=== PATIENT | female | born 1970 | race Caucasian/White ===

== ENCOUNTER 2019-06-09 18:49 | Inpatient (IN) | payer MEDICAID, OTHER ==
[~2019-06-09] VITALS: Ht 162.6 cm; Wt 102.4 kg
[2019-06-28 13:43] VITALS: BP 139/89
== END 2019-06-28 16:59 | DRG 720 ==
LOC: ED 19:15 → EDIP 20:55 → 5SO 21:30 → 4WST 21:43 → CCU 06-13 08:46 → 4WST 06-25 13:33
PROVIDERS: ADMIT Internal Medicine; ATTEND Internal Medicine
PROC: 0T9B70Z Drainage of Bladder with Drainage Device, Via Natural or Artificial Opening (ICD-10-PCS; 2019-06-12)
PROC: 5A1955Z Respiratory Ventilation, Greater than 96 Consecutive Hours (ICD-10-PCS; 2019-06-13)
PROC: 0BH17EZ Insertion of Endotracheal Airway into Trachea, Via Natural or Artificial Opening (ICD-10-PCS; 2019-06-13)
PROC: 0D9670Z Drainage of Stomach with Drainage Device, Via Natural or Artificial Opening (ICD-10-PCS; 2019-06-16)
PROC: 02HV33Z Insertion of Infusion Device into Superior Vena Cava, Percutaneous Approach (ICD-10-PCS; principal; 2019-06-17)
PROC: B548ZZA Ultrasonography of Superior Vena Cava, Guidance (ICD-10-PCS; 2019-06-17)
DX: A41.9 Sepsis, unspecified organism (principal); J96.01 Acute respiratory failure with hypoxia; N17.0 Acute kidney failure with tubular necrosis; J69.0 Pneumonitis due to inhalation of food and vomit; Z99.11 Dependence on respirator [ventilator] status; G93.41 Metabolic encephalopathy; K85.20 Alcohol induced acute pancreatitis without necrosis or infection; E87.4 Mixed disorder of acid-base balance; J90 Pleural effusion, not elsewhere classified; K70.9 Alcoholic liver disease, unspecified; D69.59 Other secondary thrombocytopenia; E66.01 Morbid (severe) obesity due to excess calories; E83.39 Other disorders of phosphorus metabolism; E83.42 Hypomagnesemia; E87.0 Hyperosmolality and hypernatremia; D53.9 Nutritional anemia, unspecified; Z68.38 Body mass index [BMI] 38.0-38.9, adult; E83.51 Hypocalcemia; E83.52 Hypercalcemia; E86.0 Dehydration; E87.6 Hypokalemia; Z71.41 Alcohol abuse counseling and surveillance of alcoholic; J98.01 Acute bronchospasm; K56.7 Ileus, unspecified; E87.70 Fluid overload, unspecified; K76.0 Fatty (change of) liver, not elsewhere classified; F10.239 Alcohol dependence with withdrawal, unspecified; F43.21 Adjustment disorder with depressed mood; G47.00 Insomnia, unspecified; I10 Essential (primary) hypertension; I47.1 Supraventricular tachycardia; I82.612 Acute embolism and thrombosis of superficial veins of left upper extremity; Z79.4 Long term (current) use of insulin; Z79.899 Other long term (current) drug therapy
CPT/HCPCS: 36415; 36573; 36600; 71045; 71250; 74018; 74176; 76700; 76770; 80048; 80053; 80061; 80076; 80307; 81001; 82140; 82306; 82330; 82533; 82607; 82803; 82962; 83036; 83605; 83690; 83735; 83970; 84100; 84443; 84478; 84484; 84703; 85025; 85610; 87040; 87070; 87081; 87205; 87324; 93005; 93306; 93970; 94002; 94003; 94150; 94640; 94660; 94668; 96372; 96374; 96375; G0378; J0610; J0696; J1644; J1815; J2185; J2250; J2405; J2550; J3010; J3360; J3411; J3475; J3480; J7070; J7620; C1751; J0360; J1940; J2060; J2270; J3420; J3490; J7030; J7040; J7050

== ENCOUNTER 2019-07-13 00:59 | Inpatient (IN) | payer MEDICAID ==
[~2019-07-13] VITALS: Ht 160 cm; Wt 99.2 kg
[~2019-07-13 00:59] MED LIST: CALC200T24 PO; ESCI10TA PO; FAMO20TA7 PO; FURO-92 PO; HEPA50002 SQ; HYDR12.517 PO; INSU100I11 SQ-INSULIN; INSU100I13 SQ-INSULIN; MAGN400T7 PO; MEGE400O4 PO; METO50TA82 PO; MULT1TAB60 PO; POTA20TA6 PO; THIA100T67 PO
[2019-07-13] MEDS ORDERED: REGULAR INSULIN 62.5 UNITS in SODIUM CHLORIDE 0.9% 249.375 ML IV PRN ×2 (01:13→03:00)
[2019-07-13] MEDS ORDERED: NOREPINEPHRINE 4 MG in SODIUM CHLORIDE 0.9% 246 ML IV PRN ×2 (01:23→03:00)
[2019-07-13 01:25] LABS: MEAN CORPUSCULAR HGB CONC 31.4 g/dL (32.4-35.8); MEAN CORPUSCULAR VOLUME 101.8 fL (80-100); MEAN PLATELET VOLUME 10.1 fL (7.4-10.4); PLATELET COUNT 565 x10^3/uL (130-400); RED BLOOD COUNT 3.54 x10^6/uL (3.82-5.3); RED CELL DISTRIBUTION WIDTH 22.1 % (9.6-15.2)
[2019-07-13] MEDS ORDERED: CLON-275 PO (01:27)
[2019-07-13] MEDS ORDERED: LISI-170 PO (01:27)
[2019-07-13] MEDS ORDERED: SODIUM CHLORIDE 0.9% 1,000ML IVBOLUS ONE ×2 (01:30→03:00)
[2019-07-13 01:33] LABS: ALANINE AMINOTRANSFERASE 19 U/L (12-78); CALCIUM 9.8 mg/dL (8.5-10.1); CHLORIDE 91 mmol/L (98-107); CREATININE 2.56 mg/dL (0.55-1.02)
[2019-07-13 01:41] LABS: ALKALINE PHOSPHATASE 161 U/L (45-117); BILIRUBIN,TOTAL 0.7 mg/dL (0.2-1.0); TOTAL PROTEIN 7.8 g/dL (6.4-8.2)
[2019-07-13 01:43] LABS: BASOPHILS # (AUTO) 0.02 x10^3/uL (0-0.1); BASOPHILS % (AUTO) 0 % (0-1); EOSINOPHILS # (AUTO) 0.06 x10^3/uL (0-0.4); EOSINOPHILS % (AUTO) 0 % (1-7); LYMPHOCYTES # (AUTO) 0.64 x10^3/uL (1-3.4); LYMPHOCYTES % (AUTO) 2 % (22-44); MD SCAN; MONOCYTES # (AUTO) 0.84 x10^3/uL (0.2-0.8); MONOCYTES % (AUTO) 3 % (2-9); NEUTROPHILS # (AUTO) 26.15 x10^3/uL (1.8-6.8); NEUTROPHILS % (AUTO) 94 % (42-75)
--- NOTE | 2019-07-13 01:45 | NUR ---
PT IN HOSPITAL GOWN, PLACED ON 2L O2. SECOND IV STARTED BY EMS. ORDERED FLUIDS HANGING. PT ONLY AROUSABLE TO PAINFUL STIMULI AT THIS TIME. MED REC DONE ACCORDING TO [facility] AND [facility] RECORDS BROUGHT IN BY WILBER. ACCORDING TO [facility] THERE ARE MORE MEDS PT TAKES AT HOME, BOYFRIEND CAN NOT RECALL UNLISTED MEDS AT THIS TIME. LAB IN CURRENTLY TRYING TO DRAW BLOOD. PT REQUIRING MULTIPLE STICKS TO COLLECT AMBLE BLOOD FOR ORDERED TESTS. WILL CONTINUE TO MONITOR.
[2019-07-13 01:55] LABS: ACETONE, SERUM Large (80mg/dL) mg/dL (Negative)
[2019-07-13 01:56] LABS: ANION GAP 31 mmol/L (5-15)
[2019-07-13] MEDS ORDERED: PHARMACOKINETIC CONSULTATION MC ONE (02:00)
[2019-07-13] MEDS ORDERED: VANCOMYCIN PER PHARMACY MC PRN (02:00)
[2019-07-13] MEDS ORDERED: PIPERACILLIN/TAZO/PMX 3.375GM 50 ML IV ONE (02:00)
--- NOTE | 2019-07-13 02:21 | NUR ---
BLOOD CULTURES DRAWN BY LAB. ORDERED ABX STARTED.
[2019-07-13 02:23] LABS: FIO2 97.5 %
[2019-07-13 02:24] LABS: MICROSCOPIC NOT IND
[2019-07-13 02:30] LABS: PH, VENOUS 6.899 pH (7.320-7.420)
[2019-07-13] MEDS ORDERED: VANCOMYCIN 1,600 MG in SODIUM CHLORIDE 0.9% 250 ML IV ONE (02:30)
[2019-07-13 02:32] LABS: CULTURE INDICATED? NO
[2019-07-13 02:36] LABS: AMPHETAMINE SCREEN, URINE Negative (Negative); BARBITURATE SCREEN, URINE Negative (Negative); BENZODIAZEPINE SCREEN, URINE Positive (Negative); CANNABINOID SCREEN, URINE Negative (Negative); COCAINE SCREEN, URINE Negative (Negative); METHADONE SCREEN, URINE Negative (Negative); OPIATE SCREEN, URINE Negative (Negative)
[2019-07-13 02:39] LABS: FREE T4 (FREE THYROXINE) 1.16 ng/dL (0.76-1.46); TROPONIN I < 0.015 ng/mL (0.000-0.045)
[2019-07-13] MEDS ORDERED: ONDANSETRON 2MG/ML, 2ML IVPush PRN (03:00)
--- NOTE | 2019-07-13 03:07 | NUR ---
REPORT TO NOEL GRAVES
[2019-07-13] MEDS ORDERED: PIPERACILLIN/TAZO/PMX 3.375GM 50 ML ONE (03:08)
[2019-07-13] MEDS: SODIUM CHLORIDE 0.9% 1,000 ML IV SCH ×3 (03:14→15:37)
[2019-07-13 03:19] LABS: HEMOGLOBIN A1C 8.1 % (4.2-6.3)
[2019-07-13] MEDS ORDERED: SODIUM POLY SULFONATE UDC 15 GM/60 ML PO ONE (03:30)
[2019-07-13] MEDS ORDERED: SODIUM BICARB 8.4%, 50ML SYRINGE IVPush ONE (03:30)
[2019-07-13] MEDS ORDERED: SODIUM BICARBONATE 1 MEQ/ML, 50ML VIAL ONE (04:12)
[2019-07-13] MEDS ORDERED: CALCIUM GLUCONATE 9.2 MEQ in SODIUM CHLORIDE 0.9% 100 ML IV ONE (04:30)
[2019-07-13] MEDS ORDERED: PIPERACILLIN/TAZO/PMX 2.25GM 50 ML IV SCH (05:00)
[2019-07-13] MEDS: LINEZOLID PMX 600MG/300ML 300 ML IV SCH ×2 (05:40→17:51)
[2019-07-13 05:48] LABS: ANION GAP 25 mmol/L (5-15); CALCIUM 9.4 mg/dL (8.5-10.1); CHLORIDE 106 mmol/L (98-107)
[2019-07-13 05:49] LABS: CREATININE 2.26 mg/dL (0.55-1.02)
[2019-07-13 09:46] LABS: ANION GAP 16 mmol/L (5-15); CALCIUM 9.4 mg/dL (8.5-10.1); CHLORIDE 109 mmol/L (98-107); CREATININE 1.91 mg/dL (0.55-1.02)
[2019-07-13] MEDS ORDERED: D5%-0.45NACL+KCL 20MEQ 1,000 ML IV SCH (12:00)
[2019-07-13 13:30] LABS: CALCIUM 9.1 mg/dL (8.5-10.1); CHLORIDE 113 mmol/L (98-107)
[2019-07-13 13:32] LABS: ANION GAP 9 mmol/L (5-15)
[2019-07-13] MEDS: INSULIN GLARGINE 100 UNITS/ML, PEN SQ-INSULIN SCH ×2 (14:29→21:30)
[2019-07-13] MEDS: INSULIN LISPRO 100 UNITS/ML, PEN SQ-INSULIN SCH ×2 (16:42→21:29)
[2019-07-13] MEDS: PIPERACILLIN/TAZO/PMX 2.25GM 50 ML IV SCH ×2 (16:42→22:55)
[2019-07-13] MEDS ORDERED: INSULIN GLARGINE 100 UNITS/ML, PEN SQ-INSULIN SCH (21:00)
[2019-07-14] MEDS ORDERED: REGULAR INSULIN 62.5 UNITS in SODIUM CHLORIDE 0.9% 249.375 ML IV PRN (03:00)
[2019-07-14 04:37] LABS: ALANINE AMINOTRANSFERASE 10 U/L (12-78); ALBUMIN 2.3 g/dL (3.4-5.0); ANION GAP 14 mmol/L (5-15); CALCIUM 8.6 mg/dL (8.5-10.1); CHLORIDE 110 mmol/L (98-107)
[2019-07-14 04:40] LABS: ALKALINE PHOSPHATASE 115 U/L (45-117); BILIRUBIN,TOTAL 0.7 mg/dL (0.2-1.0); CREATININE 1.14 mg/dL (0.55-1.02); TOTAL PROTEIN 6.1 g/dL (6.4-8.2)
[2019-07-14 04:41] LABS: BASOPHILS % (AUTO) 0 % (0-1); EOSINOPHILS # (AUTO) 0.08 x10^3/uL (0-0.4); EOSINOPHILS % (AUTO) 1 % (1-7); LYMPHOCYTES # (AUTO) 0.86 x10^3/uL (1-3.4); LYMPHOCYTES % (AUTO) 10 % (22-44); MD NO; MEAN CORPUSCULAR HEMOGLOBIN 31.8 pg (27.0-34.8); MEAN CORPUSCULAR HGB CONC 32.2 g/dL (32.4-35.8); MEAN CORPUSCULAR VOLUME 98.9 fL (80-100); MEAN PLATELET VOLUME 8.9 fL (7.4-10.4); MONOCYTES # (AUTO) 0.63 x10^3/uL (0.2-0.8); MONOCYTES % (AUTO) 7 % (2-9); NEUTROPHILS % (AUTO) 82 % (42-75); PLATELET COUNT 301 x10^3/uL (130-400); RED BLOOD COUNT 3.27 x10^6/uL (3.82-5.3)
[2019-07-14] MEDS: PIPERACILLIN/TAZO/PMX 2.25GM 50 ML IV SCH ×2 (04:56→12:22)
[2019-07-14] MEDS: SODIUM CHLORIDE 0.9% 1,000 ML IV SCH (04:56)
[2019-07-14] MEDS: LINEZOLID PMX 600MG/300ML 300 ML IV SCH (04:56)
[2019-07-14] MEDS ORDERED: PHENOBARBITAL SODIUM IV ONE (08:00)
[2019-07-14] MEDS ORDERED: SODIUM CHLORIDE 0.9% IV ONE (08:00)
[2019-07-14] MEDS ORDERED: ACETAMINOPHEN 325 MG TABLET PO PRN (08:00)
[2019-07-14] MEDS: INSULIN LISPRO 100 UNITS/ML, PEN SQ-INSULIN SCH ×4 (09:05→21:13)
[2019-07-14] MEDS: POTASSIUM CHLORIDE 20 MEQ TAB.ER.PRT PO SCH ×2 (09:09→17:22)
[2019-07-14] MEDS: INSULIN GLARGINE 100 UNITS/ML, PEN SQ-INSULIN SCH ×2 (09:12→21:14)
[2019-07-14 13:48] VITALS: BP 152/88
[2019-07-14] MEDS: PIPERACILLIN/TAZO/PMX 3.375GM 50 ML IV SCH (17:23)
[2019-07-14 20:27] VITALS: BP 161/88
[2019-07-15] MEDS: PIPERACILLIN/TAZO/PMX 3.375GM 50 ML IV SCH ×4 (00:08→17:38)
[2019-07-15 00:54] VITALS: BP 164/103
[2019-07-15] MEDS ORDERED: hydrALAzine 20 MG/ML, 1ML IV ONE (01:00)
[2019-07-15] MEDS: INSULIN LISPRO 100 UNITS/ML, PEN SQ-INSULIN SCH ×4 (07:53→21:26)
[2019-07-15] MEDS: POTASSIUM CHLORIDE 20 MEQ TAB.ER.PRT PO SCH ×2 (09:34→16:38)
[2019-07-15] MEDS: AMLODIPINE 5 MG TABLET PO SCH ×2 (09:34→20:31)
[2019-07-15] MEDS: INSULIN GLARGINE 100 UNITS/ML, PEN SQ-INSULIN SCH ×2 (09:35→21:24)
[2019-07-15] MEDS ORDERED: ALBUTEROL/IPRATROPIUM 2.5MG/0.5MG, 3 ML NPPB PRN (12:00)
[2019-07-15] MEDS: CALCIUM CARBONATE 500 MG TAB.CHEW PO PRN ×2 (15:12→21:22)
[2019-07-15] MEDS: ENOXAPARIN 40 MG/0.4 ML SQ SCH (17:00)
[2019-07-15 19:25] VITALS: BP 144/90
[2019-07-16] MEDS: PIPERACILLIN/TAZO/PMX 3.375GM 50 ML IV SCH ×3 (00:09→11:52)
[2019-07-16 01:08] VITALS: BP 160/100
[2019-07-16 06:16] LABS: CHLORIDE 104 mmol/L (98-107)
[2019-07-16 06:17] LABS: MEAN CORPUSCULAR HEMOGLOBIN 31.9 pg (27.0-34.8); MEAN CORPUSCULAR HGB CONC 32.3 g/dL (32.4-35.8); MEAN PLATELET VOLUME 9.2 fL (7.4-10.4); PLATELET COUNT 300 x10^3/uL (130-400); RED BLOOD COUNT 3.49 x10^6/uL (3.82-5.3); RED CELL DISTRIBUTION WIDTH 22.2 % (9.6-15.2)
[2019-07-16 06:24] LABS: ALANINE AMINOTRANSFERASE 12 U/L (12-78); ALBUMIN 2.7 g/dL (3.4-5.0); ALKALINE PHOSPHATASE 120 U/L (45-117); BILIRUBIN,TOTAL 0.6 mg/dL (0.2-1.0); CALCIUM 9.3 mg/dL (8.5-10.1); CREATININE 0.67 mg/dL (0.55-1.02); TOTAL PROTEIN 6.9 g/dL (6.4-8.2)
[2019-07-16 06:26] LABS: ANION GAP 10 mmol/L (5-15)
[2019-07-16 06:39] LABS: BASOPHILS # (AUTO) 0.04 x10^3/uL (0-0.1); BASOPHILS % (AUTO) 1 % (0-1); EOSINOPHILS # (AUTO) 0.07 x10^3/uL (0-0.4); EOSINOPHILS % (AUTO) 1 % (1-7); LYMPHOCYTES # (AUTO) 1.29 x10^3/uL (1-3.4); LYMPHOCYTES % (AUTO) 21 % (22-44); MD SCAN; MONOCYTES # (AUTO) 0.54 x10^3/uL (0.2-0.8); MONOCYTES % (AUTO) 9 % (2-9); NEUTROPHILS # (AUTO) 4.15 x10^3/uL (1.8-6.8); NEUTROPHILS % (AUTO) 68 % (42-75)
[2019-07-16] MEDS ORDERED: MAGNESIUM SULFATE 3 GM in SODIUM CHLORIDE 0.9% 100 ML IV ONE (07:00)
[2019-07-16] MEDS: INSULIN LISPRO 100 UNITS/ML, PEN SQ-INSULIN SCH ×4 (07:00→21:00)
[2019-07-16 08:00] VITALS: BP 161/90
[2019-07-16] MEDS: AMLODIPINE 5 MG TABLET PO SCH ×2 (08:11→20:46)
[2019-07-16] MEDS: METOPROLOL TARTRATE 25 MG TABLET PO SCH ×2 (08:11→17:48)
[2019-07-16] MEDS: POTASSIUM CHLORIDE 20 MEQ TAB.ER.PRT PO SCH ×3 (09:53→20:46)
[2019-07-16] MEDS: INSULIN GLARGINE 100 UNITS/ML, PEN SQ-INSULIN SCH ×2 (09:54→21:00)
[2019-07-16 11:47] LABS: CULTURE INDICATED? NO; MICROSCOPIC AUTO
[2019-07-16] MEDS: CALCIUM CARBONATE 500 MG TAB.CHEW PO PRN (14:47)
[2019-07-16] MEDS: GUAIFENESIN ER 600 MG TABLET PO SCH ×2 (14:48→20:45)
[2019-07-16 19:17] VITALS: BP 165/95
[2019-07-16] MEDS: AMOXICILLIN/CLAV 875-125MG TABLET PO SCH (20:45)
[2019-07-16] MEDS: ENOXAPARIN 40 MG/0.4 ML SQ SCH (20:48)
[2019-07-16] MEDS ORDERED: INSULIN GLARGINE 100 UNITS/ML, PEN SQ-INSULIN ONE (22:00)
[2019-07-17 01:48] VITALS: BP 157/89
[2019-07-17 05:45] LABS: ANION GAP 8 mmol/L (5-15); CHLORIDE 107 mmol/L (98-107); CREATININE 0.48 mg/dL (0.55-1.02)
[2019-07-17] MEDS: METOPROLOL TARTRATE 25 MG TABLET PO SCH (06:08)
[2019-07-17] MEDS: INSULIN LISPRO 100 UNITS/ML, PEN SQ-INSULIN SCH ×2 (07:00→11:00)
[2019-07-17 07:45] VITALS: BP 135/92
[2019-07-17] MEDS: GUAIFENESIN ER 600 MG TABLET PO SCH (07:47)
[2019-07-17] MEDS: AMOXICILLIN/CLAV 875-125MG TABLET PO SCH (07:47)
[2019-07-17] MEDS: POTASSIUM CHLORIDE 20 MEQ TAB.ER.PRT PO SCH (07:47)
[2019-07-17] MEDS: AMLODIPINE 5 MG TABLET PO SCH (07:47)
[2019-07-17] MEDS: INSULIN GLARGINE 100 UNITS/ML, PEN SQ-INSULIN SCH (08:12)
[2019-07-17] MEDS ORDERED: INSU100I11 SQ-INSULIN (11:45)
[2019-07-17] MEDS ORDERED: AMOX1TAB12 PO (11:45)
[2019-07-17] MEDS ORDERED: METO25TA35 PO (11:45)
[2019-07-17] MEDS ORDERED: INSU100I13 SQ-INSULIN (11:45)
== END 2019-07-17 14:32 | disposition home or self-care (01) | DRG 871 ==
LOC: ED 01:05 → EDIP 02:17 → CCU 03:45 → 3N 07-14 11:35 → DCLOUNGE 07-17 14:19
PROVIDERS: ADMIT Family Medicine; ATTEND Family Medicine
PROC: 0T9B70Z Drainage of Bladder with Drainage Device, Via Natural or Artificial Opening (ICD-10-PCS; principal; 2019-07-13)
PROC: 06HM33Z Insertion of Infusion Device into Right Femoral Vein, Percutaneous Approach (ICD-10-PCS; 2019-07-13)
DX: A41.9 Sepsis, unspecified organism (principal); E11.11 Type 2 diabetes mellitus with ketoacidosis with coma; G93.41 Metabolic encephalopathy; J18.9 Pneumonia, unspecified organism; K85.90 Acute pancreatitis without necrosis or infection, unspecified; N17.0 Acute kidney failure with tubular necrosis; E87.1 Hypo-osmolality and hyponatremia; D53.9 Nutritional anemia, unspecified; D69.6 Thrombocytopenia, unspecified; E66.9 Obesity, unspecified; E83.42 Hypomagnesemia; E86.0 Dehydration; E87.5 Hyperkalemia; F43.21 Adjustment disorder with depressed mood; I10 Essential (primary) hypertension; K70.9 Alcoholic liver disease, unspecified; K76.0 Fatty (change of) liver, not elsewhere classified; Y95 Nosocomial condition; Z87.891 Personal history of nicotine dependence; Z79.4 Long term (current) use of insulin
CPT/HCPCS: 36415; 51702; 71045; 80048; 80053; 80307; 81001; 81003; 82010; 82140; 82803; 82962; 83036; 83605; 83690; 83735; 83880; 83930; 84100; 84439; 84484; 85025; 87040; 87081; 93005; 94640; 99291; G0378; J0610; J1650; J1815; J2020; J2543; J3370; J3475; J0360; J3480; J7030; J7050

== ENCOUNTER 2019-10-08 13:23 | Inpatient (IN) | payer MEDICAID ==
[~2019-10-08] VITALS: Ht 162.6 cm; Wt 79.8 kg
[~2019-10-08 13:23] MED LIST changes: +AMOX1TAB12 PO; +CLON-275 PO; +LISI-170 PO; -MAGN400T7 PO; +MAGN400T9 PO; +METO25TA35 PO
[2019-10-08 14:22] LABS: BASOPHILS # (AUTO) 0.04 x10^3/uL (0-0.1); BASOPHILS % (AUTO) 1 % (0-1); EOSINOPHILS # (AUTO) 0.06 x10^3/uL (0-0.4); EOSINOPHILS % (AUTO) 1 % (1-7); LYMPHOCYTES # (AUTO) 1.49 x10^3/uL (1-3.4); LYMPHOCYTES % (AUTO) 22 % (22-44); MD NO; MEAN CORPUSCULAR HEMOGLOBIN 27.4 pg (27.0-34.8); MEAN CORPUSCULAR VOLUME 83.1 fL (80-100); MEAN PLATELET VOLUME 8.6 fL (7.4-10.4); MONOCYTES # (AUTO) 0.43 x10^3/uL (0.2-0.8); MONOCYTES % (AUTO) 6 % (2-9); NEUTROPHILS # (AUTO) 4.85 x10^3/uL (1.8-6.8); NEUTROPHILS % (AUTO) 71 % (42-75); PLATELET COUNT 255 x10^3/uL (130-400); RED BLOOD COUNT 5.33 x10^6/uL (3.82-5.3); RED CELL DISTRIBUTION WIDTH 15.4 % (9.6-15.2)
[2019-10-08] MEDS ORDERED: SODIUM CHLORIDE FLUSH 10ML SYR IVF ONE (14:30)
[2019-10-08 14:34] LABS: ALBUMIN 3.8 g/dL (3.4-5.0); ANION GAP 11 mmol/L (5-15); CALCIUM 9.9 mg/dL (8.5-10.1); CHLORIDE 101 mmol/L (98-107)
--- NOTE | 2019-10-08 14:34 | NUR ---
TASK RN: PT PRESENTING TO ER FOR RLQ PAIN INTERMITTENTLY SINCE TUESDAY. DENIES N/V/D, LAST BM TODAY, STATES NORMAL. NO URINARY SYMPTOMS REPORTED. CONNECTED TO MONITORING, VSS. PT UP TO RESTROOM TO OBTAIN URINE SAMPLE. LABS DRAWN. FAMILY AT BEDSIDE. CALL LIGHT WITHIN REACH.
[2019-10-08 14:41] LABS: ALANINE AMINOTRANSFERASE 39 U/L (12-78); ALKALINE PHOSPHATASE 94 U/L (45-117); BILIRUBIN,TOTAL 0.3 mg/dL (0.2-1.0); CREATININE 0.75 mg/dL (0.55-1.02); TOTAL PROTEIN 7.7 g/dL (6.4-8.2)
--- NOTE | 2019-10-08 15:32 | NUR ---
task rn:piv est by this rn on right forearm 20g.
[2019-10-08 15:44] LABS: MICROSCOPIC INDICATED
[2019-10-08 15:57] LABS: CULTURE INDICATED? YES
[2019-10-08] MEDS ORDERED: OMNIPAQUE 350 MG/ML, 100ML BOTTLE ONE (16:24)
[2019-10-08] MEDS ORDERED: ONDANSETRON 2MG/ML, 2ML IVPush PRN (17:00)
[2019-10-08] MEDS ORDERED: SODIUM CHLORIDE FLUSH 10ML SYR IVF PRN (17:30)
[2019-10-08] MEDS ORDERED: CEFTRIAXONE PMX 2GM/50ML 50 ML IV SCH (18:00)
[2019-10-08] MEDS ORDERED: POTASSIUM CHLORIDE 40 MEQ in SODIUM CHLORIDE 0.9% 500 ML IV ONE (18:00)
[2019-10-08] MEDS: SODIUM CHLORIDE 0.9% 1,000 ML IV SCH (18:06)
--- NOTE | 2019-10-08 18:30 | NUR ---
Provided report to ELY Chavis. All questions answered. Pt ready to transfer to floor from ED. NADN. No needs expressed.
--- NOTE | 2019-10-08 18:56 | NUR ---
Pt transfred from ED to floor with all personal belongings. NADN. No needs expressed.
[2019-10-08 19:45] VITALS: BP 138/84
[2019-10-08] MEDS: INSULIN LISPRO 100 UNITS/ML, PEN SQ-INSULIN SCH (21:00)
[2019-10-08] MEDS: METRONIDAZOLE PMX 500MG/100ML 100 ML IV SCH (21:14)
[2019-10-08] MEDS: MORPHINE SULFATE 4 MG/ML, 1ML IVPush PRN (23:52)
[2019-10-09 01:10] VITALS: BP 145/73
[2019-10-09 05:05] LABS: BASOPHILS # (AUTO) 0.02 x10^3/uL (0-0.1); BASOPHILS % (AUTO) 0 % (0-1); EOSINOPHILS # (AUTO) 0.07 x10^3/uL (0-0.4); EOSINOPHILS % (AUTO) 1 % (1-7); LYMPHOCYTES # (AUTO) 1.43 x10^3/uL (1-3.4); LYMPHOCYTES % (AUTO) 26 % (22-44); MD NO; MEAN CORPUSCULAR HEMOGLOBIN 27.8 pg (27.0-34.8); MEAN CORPUSCULAR HGB CONC 33.7 g/dL (32.4-35.8); MEAN CORPUSCULAR VOLUME 82.4 fL (80-100); MEAN PLATELET VOLUME 8.3 fL (7.4-10.4); MONOCYTES % (AUTO) 9 % (2-9); NEUTROPHILS # (AUTO) 3.56 x10^3/uL (1.8-6.8); NEUTROPHILS % (AUTO) 64 % (42-75); PLATELET COUNT 220 x10^3/uL (130-400); RED BLOOD COUNT 4.64 x10^6/uL (3.82-5.3); RED CELL DISTRIBUTION WIDTH 15.4 % (9.6-15.2)
[2019-10-09] MEDS: METRONIDAZOLE PMX 500MG/100ML 100 ML IV SCH ×2 (05:05→13:23)
[2019-10-09] MEDS: MORPHINE SULFATE 4 MG/ML, 1ML IVPush PRN ×4 (05:05→23:20)
[2019-10-09 05:08] LABS: ALANINE AMINOTRANSFERASE 29 U/L (12-78); ALBUMIN 3.1 g/dL (3.4-5.0); ANION GAP 6 mmol/L (5-15); CALCIUM 8.7 mg/dL (8.5-10.1); CHLORIDE 110 mmol/L (98-107); CREATININE 0.61 mg/dL (0.55-1.02)
[2019-10-09 05:10] LABS: ALKALINE PHOSPHATASE 76 U/L (45-117); BILIRUBIN,TOTAL 0.4 mg/dL (0.2-1.0); TOTAL PROTEIN 6.7 g/dL (6.4-8.2)
[2019-10-09] MEDS: INSULIN LISPRO 100 UNITS/ML, PEN SQ-INSULIN SCH ×4 (07:00→21:00)
[2019-10-09 07:08] VITALS: BP 133/85
[2019-10-09] MEDS: PANTOPRAZOLE 40 MG IV IVPush SCH (07:48)
[2019-10-09] MEDS: SODIUM CHLORIDE 0.9% 1,000 ML IV SCH (09:55)
[2019-10-09 14:59] VITALS: BP 122/83
[2019-10-09] MEDS ORDERED: MAGNESIUM SULFATE PMX 4GM/100M 100 ML IVPB ONE (15:00)
[2019-10-09] MEDS: POTASSIUM CHLORIDE 10 MEQ in D5%-LACTATED RINGERS 1,000 ML IV SCH (16:21)
[2019-10-09 19:12] VITALS: BP 137/87
[2019-10-10 01:41] VITALS: BP 129/85
[2019-10-10] MEDS: MORPHINE SULFATE 4 MG/ML, 1ML IVPush PRN ×5 (04:55→23:42)
[2019-10-10 05:34] LABS: BASOPHILS # (AUTO) 0.02 x10^3/uL (0-0.1); BASOPHILS % (AUTO) 0 % (0-1); EOSINOPHILS % (AUTO) 2 % (1-7); LYMPHOCYTES # (AUTO) 1.19 x10^3/uL (1-3.4); LYMPHOCYTES % (AUTO) 26 % (22-44); MD NO; MEAN CORPUSCULAR HEMOGLOBIN 27.7 pg (27.0-34.8); MEAN CORPUSCULAR HGB CONC 33.3 g/dL (32.4-35.8); MEAN CORPUSCULAR VOLUME 83.1 fL (80-100); MEAN PLATELET VOLUME 8.4 fL (7.4-10.4); MONOCYTES # (AUTO) 0.42 x10^3/uL (0.2-0.8); MONOCYTES % (AUTO) 9 % (2-9); NEUTROPHILS # (AUTO) 2.89 x10^3/uL (1.8-6.8); NEUTROPHILS % (AUTO) 63 % (42-75); PLATELET COUNT 202 x10^3/uL (130-400); RED BLOOD COUNT 4.46 x10^6/uL (3.82-5.3); RED CELL DISTRIBUTION WIDTH 15.5 % (9.6-15.2)
[2019-10-10 05:37] LABS: ALBUMIN 3.1 g/dL (3.4-5.0); ANION GAP 6 mmol/L (5-15); CALCIUM 8.5 mg/dL (8.5-10.1); CHLORIDE 109 mmol/L (98-107)
[2019-10-10 06:05] VITALS: BP 137/86
[2019-10-10] MEDS: POTASSIUM CHLORIDE 10 MEQ in D5%-LACTATED RINGERS 1,000 ML IV SCH ×2 (06:25→18:31)
[2019-10-10] MEDS: PANTOPRAZOLE 40 MG IV IVPush SCH (07:28)
[2019-10-10 08:00] LABS: ALANINE AMINOTRANSFERASE 25 U/L (12-78)
[2019-10-10 08:02] LABS: ALKALINE PHOSPHATASE 74 U/L (45-117); BILIRUBIN,TOTAL 0.5 mg/dL (0.2-1.0); TOTAL PROTEIN 6.5 g/dL (6.4-8.2)
[2019-10-10] MEDS: INSULIN LISPRO 100 UNITS/ML, PEN SQ-INSULIN SCH ×4 (09:42→20:08)
[2019-10-10 14:00] VITALS: BP 134/89
[2019-10-10] MEDS ORDERED: GADOTERATE 10 MMOL/20 ML VIAL ONE (16:58)
[2019-10-10 19:29] VITALS: BP 169/98
[2019-10-11 01:05] VITALS: BP 148/90
[2019-10-11] MEDS: POTASSIUM CHLORIDE 10 MEQ in D5%-LACTATED RINGERS 1,000 ML IV SCH ×2 (04:14→14:03)
[2019-10-11] MEDS: MORPHINE SULFATE 4 MG/ML, 1ML IVPush PRN ×6 (04:17→23:00)
[2019-10-11 08:19] VITALS: BP 160/100
[2019-10-11] MEDS: PANTOPRAZOLE 40 MG IV IVPush SCH (08:29)
[2019-10-11] MEDS: hydrALAzine 20 MG/ML, 1ML IVPush PRN (08:34)
[2019-10-11] MEDS: INSULIN LISPRO 100 UNITS/ML, PEN SQ-INSULIN SCH ×4 (08:37→20:37)
[2019-10-11 10:11] LABS: BASOPHILS # (AUTO) 0.02 x10^3/uL (0-0.1); BASOPHILS % (AUTO) 0 % (0-1); EOSINOPHILS # (AUTO) 0.15 x10^3/uL (0-0.4); EOSINOPHILS % (AUTO) 3 % (1-7); LYMPHOCYTES % (AUTO) 26 % (22-44); MD NO; MEAN CORPUSCULAR HEMOGLOBIN 27.8 pg (27.0-34.8); MEAN CORPUSCULAR HGB CONC 33.1 g/dL (32.4-35.8); MEAN CORPUSCULAR VOLUME 84.1 fL (80-100); MEAN PLATELET VOLUME 8.6 fL (7.4-10.4); MONOCYTES # (AUTO) 0.48 x10^3/uL (0.2-0.8); MONOCYTES % (AUTO) 10 % (2-9); NEUTROPHILS # (AUTO) 3.03 x10^3/uL (1.8-6.8); NEUTROPHILS % (AUTO) 61 % (42-75); PLATELET COUNT 209 x10^3/uL (130-400); RED BLOOD COUNT 4.62 x10^6/uL (3.82-5.3); RED CELL DISTRIBUTION WIDTH 15.4 % (9.6-15.2)
[2019-10-11 10:20] LABS: ALBUMIN 3.1 g/dL (3.4-5.0); ANION GAP 7 mmol/L (5-15); CALCIUM 8.8 mg/dL (8.5-10.1); CHLORIDE 108 mmol/L (98-107)
[2019-10-11 10:25] LABS: ALANINE AMINOTRANSFERASE 22 U/L (12-78); ALKALINE PHOSPHATASE 76 U/L (45-117); BILIRUBIN,TOTAL 0.5 mg/dL (0.2-1.0); TOTAL PROTEIN 6.5 g/dL (6.4-8.2)
[2019-10-11 10:36] VITALS: BP 147/88
[2019-10-11 13:45] VITALS: BP 151/91
[2019-10-11] MEDS: LACTATED RINGERS 1,000 ML IV SCH (17:05)
[2019-10-11 19:09] VITALS: BP 151/95
[2019-10-12 01:12] VITALS: BP 153/96
[2019-10-12] MEDS: MORPHINE SULFATE 4 MG/ML, 1ML IVPush PRN ×6 (03:04→21:48)
[2019-10-12] MEDS: INSULIN LISPRO 100 UNITS/ML, PEN SQ-INSULIN SCH ×4 (07:00→21:48)
[2019-10-12] MEDS: LACTATED RINGERS 1,000 ML IV SCH ×2 (07:04→21:54)
[2019-10-12 08:25] VITALS: BP 142/79
[2019-10-12 09:24] LABS: ALBUMIN 2.9 g/dL (3.4-5.0); ANION GAP 9 mmol/L (5-15); CALCIUM 8.4 mg/dL (8.5-10.1); CHLORIDE 107 mmol/L (98-107)
[2019-10-12 09:27] LABS: ALANINE AMINOTRANSFERASE 22 U/L (12-78); ALKALINE PHOSPHATASE 70 U/L (45-117); BILIRUBIN,TOTAL 0.7 mg/dL (0.2-1.0); CREATININE 0.51 mg/dL (0.55-1.02)
[2019-10-12 10:00] LABS: BASOPHILS # (AUTO) 0.02 x10^3/uL (0-0.1); BASOPHILS % (AUTO) 0 % (0-1); EOSINOPHILS # (AUTO) 0.09 x10^3/uL (0-0.4); EOSINOPHILS % (AUTO) 2 % (1-7); LYMPHOCYTES # (AUTO) 1.62 x10^3/uL (1-3.4); LYMPHOCYTES % (AUTO) 29 % (22-44); MD NO; MEAN CORPUSCULAR HEMOGLOBIN 27.2 pg (27.0-34.8); MEAN CORPUSCULAR HGB CONC 32.9 g/dL (32.4-35.8); MEAN CORPUSCULAR VOLUME 82.7 fL (80-100); MEAN PLATELET VOLUME 8.2 fL (7.4-10.4); MONOCYTES # (AUTO) 0.55 x10^3/uL (0.2-0.8); MONOCYTES % (AUTO) 10 % (2-9); NEUTROPHILS # (AUTO) 3.25 x10^3/uL (1.8-6.8); NEUTROPHILS % (AUTO) 59 % (42-75); PLATELET COUNT 233 x10^3/uL (130-400); RED BLOOD COUNT 4.87 x10^6/uL (3.82-5.3); RED CELL DISTRIBUTION WIDTH 15.9 % (9.6-15.2)
[2019-10-12] MEDS: PANTOPRAZOLE 40 MG IV IVPush SCH (10:10)
[2019-10-12 13:52] VITALS: BP 107/70
[2019-10-12] MEDS ORDERED: MAGNESIUM SULFATE 3 GM in SODIUM CHLORIDE 0.9% 100 ML IV ONE (16:30)
[2019-10-12 19:50] VITALS: BP 110/72
[2019-10-12] MEDS: TEMAZEPAM 15 MG CAPSULE PO PRN (21:48)
[2019-10-13] MEDS: MORPHINE SULFATE 4 MG/ML, 1ML IVPush PRN ×5 (01:10→21:45)
[2019-10-13 02:15] VITALS: BP 137/81
[2019-10-13] MEDS: LACTATED RINGERS 1,000 ML IV SCH ×2 (07:00→16:59)
[2019-10-13 07:44] LABS: ALANINE AMINOTRANSFERASE 22 U/L (12-78); ALBUMIN 2.8 g/dL (3.4-5.0); ANION GAP 7 mmol/L (5-15); CALCIUM 8.3 mg/dL (8.5-10.1); CHLORIDE 108 mmol/L (98-107); CREATININE 0.47 mg/dL (0.55-1.02)
[2019-10-13 07:46] LABS: ALKALINE PHOSPHATASE 69 U/L (45-117); BILIRUBIN,TOTAL 0.6 mg/dL (0.2-1.0); TOTAL PROTEIN 5.7 g/dL (6.4-8.2)
[2019-10-13] MEDS: PANTOPRAZOLE 40 MG IV IVPush SCH (07:50)
[2019-10-13] MEDS: INSULIN LISPRO 100 UNITS/ML, PEN SQ-INSULIN SCH ×4 (07:52→21:47)
[2019-10-13 08:00] VITALS: BP 118/75
[2019-10-13] MEDS ORDERED: INSULIN GLARGINE 100 UNITS/ML, PEN SQ-INSULIN SCH ×2 (09:00→21:00)
[2019-10-13] MEDS ORDERED: POTASSIUM CHLORIDE 20 MEQ TAB.ER.PRT PO ONE (12:00)
[2019-10-13 14:00] VITALS: BP 161/98
[2019-10-13 20:35] VITALS: BP 163/91
[2019-10-13] MEDS: TEMAZEPAM 15 MG CAPSULE PO PRN (22:40)
[2019-10-14] MEDS: HYDROcodone/APAP 5/325 TABLET PO PRN ×3 (01:11→16:38)
[2019-10-14] MEDS: LACTATED RINGERS 1,000 ML IV SCH ×3 (02:37→22:00)
[2019-10-14 03:21] VITALS: BP 136/87
[2019-10-14] MEDS: MORPHINE SULFATE 4 MG/ML, 1ML IVPush PRN ×3 (06:27→21:08)
[2019-10-14] MEDS: INSULIN LISPRO 100 UNITS/ML, PEN SQ-INSULIN SCH ×4 (07:00→21:15)
[2019-10-14] MEDS: PANTOPRAZOLE 40 MG IV IVPush SCH (08:27)
[2019-10-14 08:30] VITALS: BP 137/84
[2019-10-14 13:00] VITALS: BP 135/72
[2019-10-14 19:24] VITALS: BP 160/99
[2019-10-14] MEDS: INSULIN GLARGINE 100 UNITS/ML, PEN SQ-INSULIN SCH (21:11)
[2019-10-14] MEDS: TEMAZEPAM 15 MG CAPSULE PO PRN (23:07)
[2019-10-15] MEDS: HYDROcodone/APAP 5/325 TABLET PO PRN ×3 (00:53→18:30)
[2019-10-15 01:14] VITALS: BP 175/100
[2019-10-15] MEDS: MORPHINE SULFATE 4 MG/ML, 1ML IVPush PRN ×2 (04:31→12:09)
[2019-10-15] MEDS: INSULIN LISPRO 100 UNITS/ML, PEN SQ-INSULIN SCH ×4 (07:00→20:57)
[2019-10-15] MEDS: PANTOPRAZOLE 40 MG IV IVPush SCH (07:45)
[2019-10-15] MEDS: LACTATED RINGERS 1,000 ML IV SCH ×2 (07:45→16:57)
[2019-10-15 08:20] VITALS: BP 146/92
[2019-10-15] MEDS ORDERED: SENNA/DOCUSATE TABLET PO ONE (11:30)
[2019-10-15 14:12] VITALS: BP 146/93
[2019-10-15 20:19] VITALS: BP 158/86
[2019-10-15] MEDS: TEMAZEPAM 15 MG CAPSULE PO PRN (22:03)
[2019-10-15] MEDS: INSULIN GLARGINE 100 UNITS/ML, PEN SQ-INSULIN SCH (22:04)
[2019-10-16] MEDS: HYDROcodone/APAP 5/325 TABLET PO PRN ×4 (00:06→20:23)
[2019-10-16] MEDS: LACTATED RINGERS 1,000 ML IV SCH ×3 (03:32→23:12)
[2019-10-16 04:43] VITALS: BP 148/82
[2019-10-16] MEDS: INSULIN LISPRO 100 UNITS/ML, PEN SQ-INSULIN SCH ×4 (07:00→21:37)
[2019-10-16] MEDS: PANTOPRAZOLE 40 MG IV IVPush SCH (08:19)
[2019-10-16 08:30] VITALS: BP 167/85
[2019-10-16] MEDS ORDERED: INSU100I13 SQ-INSULIN (12:47)
[2019-10-16 13:10] VITALS: BP 161/92
[2019-10-16 19:37] VITALS: BP 170/102
[2019-10-16] MEDS: hydrALAzine 20 MG/ML, 1ML IVPush PRN (21:17)
[2019-10-16] MEDS: INSULIN GLARGINE 100 UNITS/ML, PEN SQ-INSULIN SCH (21:38)
[2019-10-16] MEDS: TEMAZEPAM 15 MG CAPSULE PO PRN (22:35)
[2019-10-16] MEDS ORDERED: ENALAPRILAT 1.25 MG/ML, 2ML IV PRN (23:30)
[2019-10-17] MEDS: MORPHINE SULFATE 4 MG/ML, 1ML IVPush PRN (00:09)
[2019-10-17 01:17] VITALS: BP 162/98
[2019-10-17] MEDS: INSULIN LISPRO 100 UNITS/ML, PEN SQ-INSULIN SCH ×4 (07:00→21:00)
[2019-10-17] MEDS: PANTOPRAZOLE 40 MG IV IVPush SCH (07:34)
[2019-10-17] MEDS: LISINOPRIL 20 MG TABLET PO SCH (07:35)
[2019-10-17] MEDS: HYDROcodone/APAP 5/325 TABLET PO PRN ×3 (07:37→21:18)
[2019-10-17 08:11] VITALS: BP 167/105
[2019-10-17] MEDS: LACTATED RINGERS 1,000 ML IV SCH ×2 (09:16→21:04)
[2019-10-17] MEDS: CHLORTHALIDONE 25 MG TABLET PO SCH (12:27)
[2019-10-17 15:55] VITALS: BP 139/85
[2019-10-17] MEDS: PANCRELIPASE 24,000 CAPSULE.DR PO SCH (16:31)
[2019-10-17 19:51] VITALS: BP 163/97
[2019-10-17] MEDS: INSULIN GLARGINE 100 UNITS/ML, PEN SQ-INSULIN SCH (21:16)
[2019-10-17] MEDS: TEMAZEPAM 15 MG CAPSULE PO PRN (22:19)
[2019-10-18 01:08] VITALS: BP 168/103
[2019-10-18] MEDS: MORPHINE SULFATE 4 MG/ML, 1ML IVPush PRN (01:12)
[2019-10-18] MEDS: HYDROcodone/APAP 5/325 TABLET PO PRN ×2 (04:54→15:44)
[2019-10-18 08:00] VITALS: BP 154/90
[2019-10-18] MEDS: LISINOPRIL 20 MG TABLET PO SCH (08:27)
[2019-10-18] MEDS: PANTOPRAZOLE 40 MG IV IVPush SCH (08:27)
[2019-10-18] MEDS: PANCRELIPASE 24,000 CAPSULE.DR PO SCH ×3 (08:27→17:46)
[2019-10-18] MEDS: CHLORTHALIDONE 25 MG TABLET PO SCH (08:28)
[2019-10-18] MEDS: INSULIN LISPRO 100 UNITS/ML, PEN SQ-INSULIN SCH ×2 (08:55→11:00)
[2019-10-18 11:00] VITALS: BP 169/94
[2019-10-18] MEDS ORDERED: CHLO25TA PO (12:59)
[2019-10-18] MEDS ORDERED: LIPA1CAP61 PO (12:59)
[2019-10-18 14:00] VITALS: BP 157/93
[2019-10-18] MEDS: LACTATED RINGERS 1,000 ML IV SCH (14:00)
[2019-10-19] MEDS ORDERED: PANTOPROZOLE 40MG TABLET PO SCH (06:00)
== END 2019-10-18 18:02 | disposition home or self-care (01) | DRG 439 ==
LOC: ED 15:11 → SUATTDRO 16:56 → EDIP 17:01 → 3N 19:08
PROVIDERS: ADMIT Internal Medicine; ATTEND Hospitalist
DX: K85.21 Alcohol induced acute pancreatitis with uninfected necrosis (principal); K86.3 Pseudocyst of pancreas; N39.0 Urinary tract infection, site not specified; R18.8 Other ascites; I82.891 Chronic embolism and thrombosis of other specified veins; D18.03 Hemangioma of intra-abdominal structures; D25.9 Leiomyoma of uterus, unspecified; E87.6 Hypokalemia; F10.21 Alcohol dependence, in remission; Y90.9 Presence of alcohol in blood, level not specified; G89.29 Other chronic pain; I10 Essential (primary) hypertension; K70.9 Alcoholic liver disease, unspecified; K76.0 Fatty (change of) liver, not elsewhere classified; K86.0 Alcohol-induced chronic pancreatitis; Z79.4 Long term (current) use of insulin; Z79.899 Other long term (current) drug therapy; Z80.3 Family history of malignant neoplasm of breast; Z87.891 Personal history of nicotine dependence; K76.89 Other specified diseases of liver; I86.4 Gastric varices
CPT/HCPCS: 36415; 99285; J7121; 74177; 74181; 74183; 80053; 81001; 82962; 83036; 83690; 83735; 84100; 84703; 85025; 87086; 87147; G0378; J0696; J3475; J3480; Q9967; A9575; C9113; J0360; J1815; J2270; J7030; J7040; J7120

== ENCOUNTER → 2019-12-21 | Outpatient (CLI) | payer MEDICAID ==
[~2019-12-21] MED LIST changes: +CHLO25TA PO; +LIPA1CAP61 PO; +OMNIPAQUE 350 MG/ML, 100ML BOTTLE ONE
== END | disposition home or self-care (01) ==
LOC: CFH 07:27
PROVIDERS: ATTEND Surgery
DX: K86.3 Pseudocyst of pancreas (principal)
CPT/HCPCS: 74177; Q9967

== ENCOUNTER → 2020-01-03 | Outpatient (CLI) | payer MEDICAID ==
[~2020-01-03] MED LIST changes: +CALC200T3 PO; +FAMO-79 PO; +HYDR-826 PO; +INSU100I34 SC; +INSU100I42 SC; +MULT-658 PO; -OMNIPAQUE 350 MG/ML, 100ML BOTTLE ONE
== END | disposition home or self-care (01) ==
LOC: STAR 08:54
PROVIDERS: ATTEND Surgery
DX: Z01.818 Encounter for other preprocedural examination (principal); I51.7 Cardiomegaly
CPT/HCPCS: 93005

== ENCOUNTER 2020-01-08 11:51 | Inpatient (IN) | payer MEDICAID ==
[~2020-01-08] VITALS: Ht 162.6 cm; Wt 88.0 kg
[2020-01-08] MEDS ORDERED: LACTATED RINGERS 1,000 ML IV SCH (12:15)
[2020-01-08 12:22] VITALS: BP 123/86
[2020-01-08] MEDS ORDERED: LIDOCAINE-MPF 1%, 2ML INFIL ONE (12:30)
[2020-01-08 12:43] LABS: HCG UR SG 1.003 (1.003-1.030)
[2020-01-08] MEDS ORDERED: FENTANYL PF 250 MCG/5ML ONE (13:50)
[2020-01-08] MEDS ORDERED: MIDAZOLAM 1 MG/ML, 2ML ONE (13:50)
[2020-01-08] MEDS ORDERED: BUPIVACAINE/PF-EPI 0.5% 1:200K ONE (14:03)
[2020-01-08] MEDS ORDERED: SCOPOLAMINE 1MG PATCH TD ONE (14:09)
[2020-01-08] MEDS ORDERED: DEXAMETHASONE 4 MG/ML, 1ML ONE (16:43)
[2020-01-08] MEDS ORDERED: EPHEDRINE 50 MG/ML, 1ML ONE (16:43)
[2020-01-08] MEDS ORDERED: PROPOFOL 10 MG/ML, 20ML ONE (16:43)
[2020-01-08] MEDS ORDERED: NEOSTIGMINE 1 MG/ML, 10ML ONE (16:43)
[2020-01-08] MEDS ORDERED: SUCCINYLCHOLINE 20 MG/ML, 10ML ONE (16:43)
[2020-01-08] MEDS ORDERED: ROCURONIUM 10MG/ML,5ML ONE (16:43)
[2020-01-08] MEDS ORDERED: ONDANSETRON 2MG/ML, 2ML ONE (16:43)
[2020-01-08] MEDS ORDERED: GLYCOPYRROLATE 0.2MG/1ML, 5ML ONE (16:43)
[2020-01-08] MEDS: FENTANYL PF 100 MCG/2ML IV PRN ×2 (16:53→17:05)
[2020-01-08] MEDS ORDERED: FENTANYL PF 100 MCG/2ML ONE (16:54)
[2020-01-08] MEDS ORDERED: HYDROmorphone 2 MG/ML, 1ML ONE ×2 (16:54→17:40)
[2020-01-08] MEDS: HYDROmorphone 1 MG/ML, 1ML INJ IVPush PRN ×5 (16:58→17:43)
[2020-01-08] MEDS: INSULIN REGULAR 100 UNITS/ML, 3ML VIAL SQ-INSULIN SCH ×3 (17:00→21:50)
[2020-01-08] MEDS ORDERED: hydrALAzine 20 MG/ML, 1ML IV PRN ×2 (17:00→17:30)
[2020-01-08] MEDS ORDERED: METOPROLOL 1 MG/ML, 5ML ONE (17:19)
[2020-01-08] MEDS ORDERED: PROMETHAZINE 25 MG/ML, 1ML IV PRN (17:30)
[2020-01-08] MEDS ORDERED: METOPROLOL 1 MG/ML, 5ML IV PRN (17:30)
[2020-01-08] MEDS ORDERED: ALBUTEROL/IPRATROPIUM 2.5MG/0.5MG, 3 ML NPPB PRN (17:30)
[2020-01-08] MEDS ORDERED: MIDAZOLAM 1 MG/ML, 2ML IV PRN (17:30)
[2020-01-08] MEDS ORDERED: MEPERIDINE/PF 25MG/ML,1ML IVPush PRN (17:30)
[2020-01-08] MEDS ORDERED: OXYcodone 5 MG/5 ML ORAL.SOL UDC PO PRN (17:30)
[2020-01-08] MEDS: KETOROLAC 30 MG/1 ML IV PRN (20:45)
[2020-01-08] MEDS: POTASSIUM CHLORIDE 20 MEQ in D5%-0.45% NACL 1,000 ML IV SCH (22:00)
[2020-01-09] MEDS: CEFOTETAN PMX 1GM/50ML 50 ML IVPB SCH ×3 (02:30→16:00)
[2020-01-09 03:55] VITALS: BP 98/59
[2020-01-09 06:07] LABS: ALBUMIN 3.2 g/dL (3.4-5.0); ANION GAP 7 mmol/L (5-15); CALCIUM 7.8 mg/dL (8.5-10.1); CHLORIDE 99 mmol/L (98-107); CREATININE 1.04 mg/dL (0.55-1.02)
[2020-01-09 07:12] LABS: MEAN CORPUSCULAR HEMOGLOBIN 29.3 pg (27.0-34.8); MEAN CORPUSCULAR HGB CONC 33.4 g/dL (32.4-35.8); MEAN CORPUSCULAR VOLUME 87.9 fL (80-100); MEAN PLATELET VOLUME 8.2 fL (7.4-10.4); PLATELET COUNT 249 x10^3/uL (130-400); RED BLOOD COUNT 4.31 x10^6/uL (3.82-5.3); RED CELL DISTRIBUTION WIDTH 15.1 % (9.6-15.2)
[2020-01-09] MEDS: POTASSIUM CHLORIDE 20 MEQ in D5%-0.45% NACL 1,000 ML IV SCH ×2 (07:20→18:27)
[2020-01-09 07:21] VITALS: BP 100/63
[2020-01-09] MEDS: ENOXAPARIN 40 MG/0.4 ML SQ SCH (08:10)
[2020-01-09] MEDS: INSULIN REGULAR 100 UNITS/ML, 3ML VIAL SQ-INSULIN SCH ×4 (08:10→20:50)
[2020-01-09 08:16] LABS: MD YES
[2020-01-09 08:18] LABS: BAND#(MANUAL) 0.67 x10^3/uL; BANDS%(MANUAL) 6 % (0-7); LYMPH#(MANUAL) 0.78 x10^3/uL (1-3.4); LYMPHS% (MANUAL) 7 % (22-44); MONOS#(MANUAL) 0.33 x10^3/uL (0.3-2.7); MONOS% (MANUAL) 3 % (2-9); SEG#(MANUAL) 9.32 x10^3/uL (1.8-6.8); SEGS% (MANUAL) 84 % (42-75)
[2020-01-09 08:21] LABS: <PLATELET ESTIMATE> ADEQUATE; <PLT MORPHOLOGY> NORMAL PLT MORPH; <RBC MORPHOLOGY> NORMAL
[2020-01-09] MEDS: KETOROLAC 30 MG/1 ML IV PRN ×2 (13:40→20:45)
[2020-01-09 13:50] VITALS: BP 115/80
[2020-01-09 20:21] VITALS: BP 111/69
[2020-01-10] MEDS: LORazepam 2 MG/ML, 1ML IV PRN ×2 (01:00→02:27)
[2020-01-10] MEDS: POTASSIUM CHLORIDE 20 MEQ in D5%-0.45% NACL 1,000 ML IV SCH ×3 (02:05→20:43)
[2020-01-10 03:30] VITALS: BP 105/60
[2020-01-10 05:26] LABS: MEAN CORPUSCULAR HEMOGLOBIN 29.3 pg (27.0-34.8); MEAN CORPUSCULAR HGB CONC 33.7 g/dL (32.4-35.8); MEAN CORPUSCULAR VOLUME 86.8 fL (80-100); MEAN PLATELET VOLUME 8.7 fL (7.4-10.4); PLATELET COUNT 182 x10^3/uL (130-400); RED BLOOD COUNT 3.83 x10^6/uL (3.82-5.3); RED CELL DISTRIBUTION WIDTH 14.9 % (9.6-15.2)
[2020-01-10 05:27] LABS: ANION GAP 4 mmol/L (5-15); CALCIUM 7.8 mg/dL (8.5-10.1); CHLORIDE 102 mmol/L (98-107)
[2020-01-10 05:29] LABS: CREATININE 0.61 mg/dL (0.55-1.02)
[2020-01-10 05:50] LABS: BASOPHILS # (AUTO) 0.02 x10^3/uL (0-0.1); BASOPHILS % (AUTO) 0 % (0-1); EOSINOPHILS # (AUTO) 0.02 x10^3/uL (0-0.4); EOSINOPHILS % (AUTO) 0 % (1-7); LYMPHOCYTES # (AUTO) 1.81 x10^3/uL (1-3.4); LYMPHOCYTES % (AUTO) 31 % (22-44); MD SCAN; MONOCYTES # (AUTO) 0.48 x10^3/uL (0.2-0.8); MONOCYTES % (AUTO) 8 % (2-9); NEUTROPHILS # (AUTO) 3.56 x10^3/uL (1.8-6.8); NEUTROPHILS % (AUTO) 61 % (42-75)
[2020-01-10] MEDS: ENOXAPARIN 40 MG/0.4 ML SQ SCH (08:06)
[2020-01-10] MEDS: INSULIN REGULAR 100 UNITS/ML, 3ML VIAL SQ-INSULIN SCH ×4 (08:06→21:00)
[2020-01-10 08:10] VITALS: BP 123/74
[2020-01-10] MEDS: KETOROLAC 30 MG/1 ML IV PRN ×2 (11:36→20:43)
[2020-01-10 15:03] VITALS: BP 128/75
[2020-01-10 19:46] VITALS: BP 104/69
[2020-01-11] MEDS: LORazepam 2 MG/ML, 1ML IV PRN ×2 (00:14→22:54)
[2020-01-11] MEDS ORDERED: FAMOTIDINE 20 MG/2 ML ONE (00:32)
[2020-01-11] MEDS: FAMOTIDINE 20 MG/2 ML IVPush SCH ×3 (00:36→20:50)
[2020-01-11] MEDS: KETOROLAC 30 MG/1 ML IV PRN ×4 (03:18→22:54)
[2020-01-11 03:51] VITALS: BP 124/73
[2020-01-11] MEDS: POTASSIUM CHLORIDE 20 MEQ in D5%-0.45% NACL 1,000 ML IV SCH ×2 (05:46→13:35)
[2020-01-11 06:19] LABS: BASOPHILS # (AUTO) 0.02 x10^3/uL (0-0.1); BASOPHILS % (AUTO) 0 % (0-1); EOSINOPHILS # (AUTO) 0.04 x10^3/uL (0-0.4); EOSINOPHILS % (AUTO) 1 % (1-7); LYMPHOCYTES # (AUTO) 1.21 x10^3/uL (1-3.4); LYMPHOCYTES % (AUTO) 18 % (22-44); MD NO; MEAN CORPUSCULAR HEMOGLOBIN 29.3 pg (27.0-34.8); MEAN CORPUSCULAR HGB CONC 33.9 g/dL (32.4-35.8); MEAN CORPUSCULAR VOLUME 86.6 fL (80-100); MEAN PLATELET VOLUME 8.2 fL (7.4-10.4); MONOCYTES # (AUTO) 0.49 x10^3/uL (0.2-0.8); MONOCYTES % (AUTO) 7 % (2-9); NEUTROPHILS # (AUTO) 4.95 x10^3/uL (1.8-6.8); NEUTROPHILS % (AUTO) 74 % (42-75); PLATELET COUNT 166 x10^3/uL (130-400); RED BLOOD COUNT 3.87 x10^6/uL (3.82-5.3)
[2020-01-11 06:20] LABS: ANION GAP 5 mmol/L (5-15); CHLORIDE 102 mmol/L (98-107); CREATININE 0.63 mg/dL (0.55-1.02)
[2020-01-11] MEDS: INSULIN REGULAR 100 UNITS/ML, 3ML VIAL SQ-INSULIN SCH ×4 (07:00→20:50)
[2020-01-11 08:00] VITALS: BP 119/72
[2020-01-11] MEDS: ENOXAPARIN 40 MG/0.4 ML SQ SCH (09:00)
[2020-01-11 14:49] VITALS: BP 115/67
[2020-01-11] MEDS ORDERED: DEXTROSE 50%, 50ML VIAL IVPush ONE (17:00)
[2020-01-11] MEDS: DIPHENHYDRAMINE 50 MG/ML, 1ML IV PRN (17:21)
[2020-01-11 20:10] VITALS: BP 112/74
[2020-01-12] MEDS: POTASSIUM CHLORIDE 20 MEQ in D5%-0.45% NACL 1,000 ML IV SCH ×3 (01:13→21:17)
[2020-01-12 01:44] VITALS: BP 129/82
[2020-01-12] MEDS: KETOROLAC 30 MG/1 ML IV PRN ×3 (05:16→19:41)
[2020-01-12 05:39] LABS: ANION GAP 8 mmol/L (5-15); CALCIUM 8.3 mg/dL (8.5-10.1); CHLORIDE 101 mmol/L (98-107); CREATININE 0.63 mg/dL (0.55-1.02)
[2020-01-12 05:40] LABS: BASOPHILS # (AUTO) 0.02 x10^3/uL (0-0.1); BASOPHILS % (AUTO) 0 % (0-1); EOSINOPHILS % (AUTO) 1 % (1-7); LYMPHOCYTES # (AUTO) 0.89 x10^3/uL (1-3.4); LYMPHOCYTES % (AUTO) 11 % (22-44); MD NO; MEAN CORPUSCULAR HEMOGLOBIN 28.8 pg (27.0-34.8); MEAN CORPUSCULAR HGB CONC 33.3 g/dL (32.4-35.8); MEAN CORPUSCULAR VOLUME 86.5 fL (80-100); MEAN PLATELET VOLUME 8.7 fL (7.4-10.4); MONOCYTES # (AUTO) 0.65 x10^3/uL (0.2-0.8); MONOCYTES % (AUTO) 8 % (2-9); NEUTROPHILS # (AUTO) 6.86 x10^3/uL (1.8-6.8); NEUTROPHILS % (AUTO) 81 % (42-75); PLATELET COUNT 172 x10^3/uL (130-400); RED CELL DISTRIBUTION WIDTH 14.8 % (9.6-15.2)
[2020-01-12 08:00] VITALS: BP 136/84
[2020-01-12] MEDS: INSULIN REGULAR 100 UNITS/ML, 3ML VIAL SQ-INSULIN SCH ×4 (08:06→21:50)
[2020-01-12] MEDS: FAMOTIDINE 20 MG/2 ML IVPush SCH ×2 (08:06→21:15)
[2020-01-12] MEDS: ENOXAPARIN 40 MG/0.4 ML SQ SCH (08:29)
[2020-01-12 13:22] VITALS: BP 124/79
[2020-01-12 20:06] VITALS: BP 122/78
[2020-01-12] MEDS: LORazepam 2 MG/ML, 1ML IV PRN (21:16)
[2020-01-13 03:36] VITALS: BP 135/84
[2020-01-13] MEDS: POTASSIUM CHLORIDE 20 MEQ in D5%-0.45% NACL 1,000 ML IV SCH ×2 (06:27→16:00)
[2020-01-13 06:42] VITALS: BP 124/80
[2020-01-13] MEDS: ACETAMINOPHEN 500 MG TABLET PO PRN ×2 (08:17→20:26)
[2020-01-13] MEDS: INSULIN REGULAR 100 UNITS/ML, 3ML VIAL SQ-INSULIN SCH ×4 (08:17→21:54)
[2020-01-13] MEDS: FAMOTIDINE 20 MG/2 ML IVPush SCH ×2 (08:22→20:26)
[2020-01-13] MEDS: ENOXAPARIN 40 MG/0.4 ML SQ SCH (08:22)
[2020-01-13] MEDS: CIPROFLOXACIN 500 MG TABLET PO SCH ×2 (10:27→21:54)
[2020-01-13 12:04] LABS: MICROSCOPIC NOT IND
[2020-01-13 12:43] VITALS: BP 108/69
[2020-01-13] MEDS: OXYcodone IR 5MG TABLET PO PRN ×2 (16:27→20:27)
[2020-01-13 19:43] VITALS: BP 106/73
[2020-01-13] MEDS: LORazepam 2 MG/ML, 1ML IV PRN (21:53)
[2020-01-13] MEDS: HYDROmorphone 1 MG/ML, 1ML INJ IVPush PRN (21:53)
[2020-01-14] MEDS: POTASSIUM CHLORIDE 20 MEQ in D5%-0.45% NACL 1,000 ML IV SCH ×3 (00:05→16:15)
[2020-01-14] MEDS: OXYcodone IR 5MG TABLET PO PRN ×5 (00:27→22:04)
[2020-01-14 00:47] VITALS: BP 91/55
[2020-01-14 06:31] LABS: BASOPHILS # (AUTO) 0.02 x10^3/uL (0-0.1); BASOPHILS % (AUTO) 0 % (0-1); EOSINOPHILS # (AUTO) 0.09 x10^3/uL (0-0.4); EOSINOPHILS % (AUTO) 1 % (1-7); LYMPHOCYTES # (AUTO) 1.08 x10^3/uL (1-3.4); LYMPHOCYTES % (AUTO) 13 % (22-44); MD NO; MEAN CORPUSCULAR HEMOGLOBIN 29.3 pg (27.0-34.8); MEAN CORPUSCULAR HGB CONC 33.7 g/dL (32.4-35.8); MEAN CORPUSCULAR VOLUME 86.8 fL (80-100); MEAN PLATELET VOLUME 9.2 fL (7.4-10.4); MONOCYTES # (AUTO) 1.23 x10^3/uL (0.2-0.8); MONOCYTES % (AUTO) 15 % (2-9); NEUTROPHILS # (AUTO) 5.75 x10^3/uL (1.8-6.8); NEUTROPHILS % (AUTO) 70 % (42-75); PLATELET COUNT 158 x10^3/uL (130-400); RED BLOOD COUNT 3.76 x10^6/uL (3.82-5.3); RED CELL DISTRIBUTION WIDTH 14.7 % (9.6-15.2)
[2020-01-14 06:35] LABS: ALANINE AMINOTRANSFERASE 13 U/L (12-78); ALBUMIN 2.5 g/dL (3.4-5.0); ANION GAP 10 mmol/L (5-15); CALCIUM 8.8 mg/dL (8.5-10.1); CHLORIDE 102 mmol/L (98-107); CREATININE 0.64 mg/dL (0.55-1.02)
[2020-01-14 06:37] LABS: ALKALINE PHOSPHATASE 88 U/L (45-117); TOTAL PROTEIN 5.9 g/dL (6.4-8.2)
[2020-01-14 07:37] VITALS: BP 105/70
[2020-01-14] MEDS: INSULIN REGULAR 100 UNITS/ML, 3ML VIAL SQ-INSULIN SCH ×4 (07:59→22:16)
[2020-01-14] MEDS: ENOXAPARIN 40 MG/0.4 ML SQ SCH (09:00)
[2020-01-14] MEDS: FAMOTIDINE 20 MG/2 ML IVPush SCH ×2 (09:19→22:03)
[2020-01-14] MEDS: CIPROFLOXACIN 500 MG TABLET PO SCH ×2 (09:21→22:03)
[2020-01-14 13:28] VITALS: BP 96/60
[2020-01-14] MEDS: HYDROmorphone 1 MG/ML, 1ML INJ IVPush PRN (19:46)
[2020-01-14] MEDS ORDERED: OMNIPAQUE 350 MG/ML, 100ML BOTTLE ONE (19:46)
[2020-01-14 20:10] VITALS: BP 142/84
[2020-01-14] MEDS: LORazepam 2 MG/ML, 1ML IV PRN (22:03)
[2020-01-14] MEDS: ONDANSETRON 2MG/ML, 2ML IVPush PRN (22:03)
[2020-01-15 01:17] VITALS: BP 117/76
[2020-01-15] MEDS: OXYcodone IR 5MG TABLET PO PRN ×2 (01:58→19:45)
[2020-01-15] MEDS: POTASSIUM CHLORIDE 20 MEQ in D5%-0.45% NACL 1,000 ML IV SCH ×3 (01:58→19:26)
[2020-01-15] MEDS: ONDANSETRON 2MG/ML, 2ML IVPush PRN ×2 (06:00→12:37)
[2020-01-15 07:12] VITALS: BP 100/63
[2020-01-15] MEDS ORDERED: MAALOX/HYOSCYAMINE/LIDOCAINE 45 ML BTL PO PRN (09:00)
[2020-01-15] MEDS: ENOXAPARIN 40 MG/0.4 ML SQ SCH (09:00)
[2020-01-15] MEDS: INSULIN REGULAR 100 UNITS/ML, 3ML VIAL SQ-INSULIN SCH ×4 (09:39→21:24)
[2020-01-15] MEDS: FAMOTIDINE 20 MG/2 ML IVPush SCH ×2 (09:40→21:17)
[2020-01-15] MEDS: CIPROFLOXACIN 500 MG TABLET PO SCH (09:41)
[2020-01-15] MEDS ORDERED: PROMETHAZINE 25 MG/ML, 1ML IM PRN (11:00)
[2020-01-15] MEDS: CIPROFLOXACIN/PMX 400MG/200ML 200 ML IV SCH ×2 (12:20→22:49)
[2020-01-15] MEDS: CALCIUM CARBONATE 500 MG TAB.CHEW PO SCH ×3 (12:21→21:17)
[2020-01-15 13:12] VITALS: BP 105/67
[2020-01-15 19:39] VITALS: BP 117/75
[2020-01-15] MEDS: LORazepam 2 MG/ML, 1ML IV PRN (21:24)
[2020-01-16 00:32] VITALS: BP 103/63
[2020-01-16] MEDS: DIPHENHYDRAMINE 50 MG/ML, 1ML IV PRN (01:35)
[2020-01-16] MEDS: POTASSIUM CHLORIDE 20 MEQ in D5%-0.45% NACL 1,000 ML IV SCH ×3 (04:30→22:05)
[2020-01-16] MEDS: CALCIUM CARBONATE 500 MG TAB.CHEW PO SCH ×4 (06:09→20:53)
[2020-01-16 07:14] VITALS: BP 110/70
[2020-01-16] MEDS: FAMOTIDINE 20 MG/2 ML IVPush SCH ×2 (08:34→20:53)
[2020-01-16] MEDS: INSULIN REGULAR 100 UNITS/ML, 3ML VIAL SQ-INSULIN SCH ×4 (08:34→20:57)
[2020-01-16] MEDS: ENOXAPARIN 40 MG/0.4 ML SQ SCH (08:35)
[2020-01-16 11:46] LABS: ALBUMIN 2.2 g/dL (3.4-5.0); ANION GAP 9 mmol/L (5-15); CALCIUM 8.2 mg/dL (8.5-10.1); CHLORIDE 98 mmol/L (98-107)
[2020-01-16 11:49] LABS: ALANINE AMINOTRANSFERASE 11 U/L (12-78); ALKALINE PHOSPHATASE 94 U/L (45-117); BILIRUBIN,TOTAL 0.5 mg/dL (0.2-1.0); CREATININE 1.35 mg/dL (0.55-1.02); TOTAL PROTEIN 6.1 g/dL (6.4-8.2)
[2020-01-16 11:55] LABS: MEAN CORPUSCULAR HEMOGLOBIN 28.5 pg (27.0-34.8); MEAN CORPUSCULAR HGB CONC 32.6 g/dL (32.4-35.8); MEAN CORPUSCULAR VOLUME 87.5 fL (80-100); MEAN PLATELET VOLUME 8.8 fL (7.4-10.4); PLATELET COUNT 179 x10^3/uL (130-400); RED BLOOD COUNT 3.86 x10^6/uL (3.82-5.3); RED CELL DISTRIBUTION WIDTH 14.5 % (9.6-15.2)
[2020-01-16 12:21] LABS: MD YES
[2020-01-16 12:23] LABS: BANDS%(MANUAL) 29 % (0-7); LYMPH#(MANUAL) 1.36 x10^3/uL (1-3.4); LYMPHS% (MANUAL) 11 % (22-44); MONOS#(MANUAL) 1.49 x10^3/uL (0.3-2.7); MONOS% (MANUAL) 12 % (2-9); MYELOCYTES# (MANUAL) 0.12 x10^3/uL (0-0); MYELOCYTES% (MANUAL) 1 % (0-0); SEG#(MANUAL) 5.83 x10^3/uL (1.8-6.8); SEGS% (MANUAL) 47 % (42-75)
[2020-01-16 12:28] VITALS: BP 126/75
[2020-01-16 12:28] LABS: <PLATELET ESTIMATE> ADEQUATE; <PLT MORPHOLOGY> NORMAL PLT MORPH; <RBC MORPHOLOGY> NORMAL
[2020-01-16] MEDS: ACETAMINOPHEN 500 MG TABLET PO PRN (16:37)
[2020-01-16] MEDS: ONDANSETRON 2MG/ML, 2ML IVPush PRN (16:37)
[2020-01-16 19:13] VITALS: BP 117/74
[2020-01-17 01:50] VITALS: BP 131/84
[2020-01-17] MEDS: POTASSIUM CHLORIDE 20 MEQ in D5%-0.45% NACL 1,000 ML IV SCH ×3 (02:43→22:15)
[2020-01-17 05:13] LABS: ANION GAP 10 mmol/L (5-15); CALCIUM 8.6 mg/dL (8.5-10.1); CHLORIDE 99 mmol/L (98-107)
[2020-01-17 05:14] LABS: CREATININE 1.15 mg/dL (0.55-1.02); MEAN CORPUSCULAR HEMOGLOBIN 29.1 pg (27.0-34.8); MEAN CORPUSCULAR HGB CONC 33.5 g/dL (32.4-35.8); MEAN CORPUSCULAR VOLUME 86.7 fL (80-100); MEAN PLATELET VOLUME 8.7 fL (7.4-10.4); PLATELET COUNT 236 x10^3/uL (130-400); RED BLOOD COUNT 3.98 x10^6/uL (3.82-5.3); RED CELL DISTRIBUTION WIDTH 14.6 % (9.6-15.2)
[2020-01-17 05:51] LABS: MD YES
[2020-01-17 05:54] LABS: BANDS%(MANUAL) 27 % (0-7); LYMPH#(MANUAL) 0.82 x10^3/uL (1-3.4); LYMPHS% (MANUAL) 5 % (22-44); METAMYELOCYTES# (MANUAL) 0.16 x10^3/uL (0-0); METAMYELOCYTES% (MANUAL) 1 % (0-1); MONOS#(MANUAL) 1.14 x10^3/uL (0.3-2.7); MONOS% (MANUAL) 7 % (2-9); SEG#(MANUAL) 9.78 x10^3/uL (1.8-6.8); SEGS% (MANUAL) 60 % (42-75)
[2020-01-17 05:56] LABS: <PLATELET ESTIMATE> ADEQUATE; <PLT MORPHOLOGY> NORMAL PLT MORPH; PMNS WITH VACUOLES 1+; POLYCHROMASIA 1+; TOXIC GRAN 1+
[2020-01-17] MEDS: CALCIUM CARBONATE 500 MG TAB.CHEW PO SCH ×4 (06:27→21:02)
[2020-01-17 07:28] VITALS: BP 144/79
[2020-01-17] MEDS: INSULIN REGULAR 100 UNITS/ML, 3ML VIAL SQ-INSULIN SCH ×4 (07:59→21:11)
[2020-01-17] MEDS: FAMOTIDINE 20 MG/2 ML IVPush SCH ×2 (09:04→21:02)
[2020-01-17] MEDS: ENOXAPARIN 40 MG/0.4 ML SQ SCH (09:04)
[2020-01-17] MEDS: ACETAMINOPHEN 500 MG TABLET PO PRN ×2 (09:04→21:02)
[2020-01-17 12:41] VITALS: BP 144/88
[2020-01-17] MEDS: OXYcodone IR 5MG TABLET PO PRN ×2 (13:51→20:04)
[2020-01-17 20:28] VITALS: BP 124/74
[2020-01-18] MEDS: OXYcodone IR 5MG TABLET PO PRN ×4 (00:08→19:10)
[2020-01-18] MEDS: LORazepam 2 MG/ML, 1ML IV PRN ×2 (00:09→22:10)
[2020-01-18 01:00] VITALS: BP 104/62
[2020-01-18] MEDS: CALCIUM CARBONATE 500 MG TAB.CHEW PO SCH ×4 (05:22→20:56)
[2020-01-18 05:29] LABS: MEAN CORPUSCULAR HGB CONC 32.9 g/dL (32.4-35.8); MEAN CORPUSCULAR VOLUME 88.2 fL (80-100); MEAN PLATELET VOLUME 8.7 fL (7.4-10.4); PLATELET COUNT 252 x10^3/uL (130-400); RED BLOOD COUNT 3.74 x10^6/uL (3.82-5.3); RED CELL DISTRIBUTION WIDTH 14.7 % (9.6-15.2)
[2020-01-18 05:39] LABS: ANION GAP 7 mmol/L (5-15); CALCIUM 8.2 mg/dL (8.5-10.1); CHLORIDE 97 mmol/L (98-107)
[2020-01-18 05:41] LABS: CREATININE 1.23 mg/dL (0.55-1.02)
[2020-01-18 06:08] LABS: MD YES
[2020-01-18 06:10] LABS: EOS#(MANUAL) 0.37 x10^3/uL (0.0-0.4); EOS% (MANUAL) 2 % (1-7); METAMYELOCYTES# (MANUAL) 0.18 x10^3/uL (0-0); METAMYELOCYTES% (MANUAL) 1 % (0-1)
[2020-01-18 06:11] LABS: LYMPH#(MANUAL) 1.65 x10^3/uL (1-3.4); LYMPHS% (MANUAL) 9 % (22-44); MONOS% (MANUAL) 6 % (2-9)
[2020-01-18 06:13] LABS: BAND#(MANUAL) 5.67 x10^3/uL; BANDS%(MANUAL) 31 % (0-7)
[2020-01-18 06:14] LABS: POLYCHROMASIA 1+; SEG#(MANUAL) 9.33 x10^3/uL (1.8-6.8); SEGS% (MANUAL) 51 % (42-75)
[2020-01-18 06:15] LABS: <PLATELET ESTIMATE> ADEQUATE; <PLT MORPHOLOGY> NORMAL PLT MORPH
[2020-01-18] MEDS: POTASSIUM CHLORIDE 20 MEQ in D5%-0.45% NACL 1,000 ML IV SCH ×3 (06:20→22:30)
[2020-01-18 07:41] VITALS: BP 97/61
[2020-01-18] MEDS: ACETAMINOPHEN 500 MG TABLET PO PRN ×2 (08:06→19:10)
[2020-01-18] MEDS: FAMOTIDINE 20 MG/2 ML IVPush SCH ×2 (08:07→20:56)
[2020-01-18] MEDS: ENOXAPARIN 40 MG/0.4 ML SQ SCH (08:07)
[2020-01-18] MEDS: INSULIN REGULAR 100 UNITS/ML, 3ML VIAL SQ-INSULIN SCH ×4 (08:07→20:56)
[2020-01-18 13:20] VITALS: BP 91/55
[2020-01-18] MEDS: VALACYCLOVIR 500MG TABLET PO SCH ×2 (13:57→22:02)
[2020-01-18 19:22] VITALS: BP 94/60
[2020-01-19 01:46] VITALS: BP 95/61
[2020-01-19] MEDS ORDERED: DEXTROSE 50%, 50ML SYRINGE IVPush PRN (04:30)
[2020-01-19] MEDS ORDERED: GLUCAGON 1 MG IM PRN (04:30)
[2020-01-19] MEDS ORDERED: DEXTROSE 4 GM TAB.CHEW PO PRN (04:30)
[2020-01-19] MEDS: SODIUM CHLORIDE 0.9% 1,000 ML IV SCH ×3 (05:01→20:29)
[2020-01-19 05:43] LABS: MEAN CORPUSCULAR HEMOGLOBIN 28.6 pg (27.0-34.8); MEAN CORPUSCULAR HGB CONC 32.8 g/dL (32.4-35.8); MEAN CORPUSCULAR VOLUME 87.1 fL (80-100); PLATELET COUNT 268 x10^3/uL (130-400); RED BLOOD COUNT 3.71 x10^6/uL (3.82-5.3)
[2020-01-19 05:45] LABS: ALANINE AMINOTRANSFERASE 17 U/L (12-78); ALBUMIN 2.1 g/dL (3.4-5.0); ANION GAP 9 mmol/L (5-15); CALCIUM 8.3 mg/dL (8.5-10.1); CHLORIDE 93 mmol/L (98-107)
[2020-01-19 05:48] LABS: ALKALINE PHOSPHATASE 111 U/L (45-117); BILIRUBIN,TOTAL 0.6 mg/dL (0.2-1.0); CREATININE 1.94 mg/dL (0.55-1.02)
[2020-01-19] MEDS: CALCIUM CARBONATE 500 MG TAB.CHEW PO SCH ×4 (05:55→20:54)
[2020-01-19] MEDS: VALACYCLOVIR 500MG TABLET PO SCH ×3 (05:55→20:54)
[2020-01-19 05:59] LABS: MD YES
[2020-01-19 06:01] LABS: BANDS%(MANUAL) 23 % (0-7); LYMPH#(MANUAL) 1.06 x10^3/uL (1-3.4); LYMPHS% (MANUAL) 4 % (22-44); MONOS% (MANUAL) 3 % (2-9); SEG#(MANUAL) 18.55 x10^3/uL (1.8-6.8); SEGS% (MANUAL) 70 % (42-75)
[2020-01-19 06:02] LABS: PMNS WITH VACUOLES 1+; TOXIC GRAN 1+
[2020-01-19 06:04] LABS: <PLATELET ESTIMATE> ADEQUATE; <PLT MORPHOLOGY> NORMAL PLT MORPH; HYPOCHROMIA 1+
[2020-01-19 06:44] LABS: MICROSCOPIC NOT IND
[2020-01-19 06:47] LABS: CULTURE INDICATED? NO
[2020-01-19 07:53] VITALS: BP 130/82
[2020-01-19] MEDS: ENOXAPARIN 40 MG/0.4 ML SQ SCH (08:10)
[2020-01-19] MEDS: ACETAMINOPHEN 500 MG TABLET PO PRN ×2 (08:10→20:30)
[2020-01-19] MEDS: OXYcodone IR 5MG TABLET PO PRN ×3 (08:10→20:55)
[2020-01-19] MEDS: FAMOTIDINE 20 MG/2 ML IVPush SCH ×2 (08:10→20:55)
[2020-01-19] MEDS: INSULIN LISPRO 100 UNITS/ML, PEN SQ-INSULIN SCH ×4 (08:18→21:42)
[2020-01-19] MEDS: SODIUM CHLORIDE FLUSH 10ML SYR IVF SCH ×2 (09:00→21:03)
[2020-01-19] MEDS ORDERED: SODIUM CHLORIDE 0.9% 1,000ML IVBOLUS ONE (10:00)
[2020-01-19] MEDS: PANCRELIPASE 24,000 CAPSULE.DR PO SCH ×3 (10:23→20:56)
[2020-01-19] MEDS: MEROPENEM 1 GM in SODIUM CHLORIDE 0.9% 100 ML IV SCH ×2 (10:37→21:42)
[2020-01-19] MEDS ORDERED: PANCRELIPASE 5000 CAPSULE.DR PO SCH (11:00)
[2020-01-19 13:49] VITALS: BP 101/63
[2020-01-19 19:54] VITALS: BP 103/62
[2020-01-20 01:01] VITALS: BP 104/65
[2020-01-20] MEDS: OXYcodone IR 5MG TABLET PO PRN ×3 (01:04→14:03)
[2020-01-20] MEDS: SODIUM CHLORIDE 0.9% 1,000 ML IV SCH ×2 (03:31→10:00)
[2020-01-20 06:16] LABS: MEAN CORPUSCULAR HEMOGLOBIN 28.8 pg (27.0-34.8); MEAN CORPUSCULAR HGB CONC 32.9 g/dL (32.4-35.8); MEAN CORPUSCULAR VOLUME 87.4 fL (80-100); MEAN PLATELET VOLUME 9.3 fL (7.4-10.4); PLATELET COUNT 267 x10^3/uL (130-400); RED BLOOD COUNT 3.42 x10^6/uL (3.82-5.3); RED CELL DISTRIBUTION WIDTH 15.1 % (9.6-15.2)
[2020-01-20 06:28] LABS: ANION GAP 13 mmol/L (5-15); CALCIUM 7.3 mg/dL (8.5-10.1); CHLORIDE 103 mmol/L (98-107)
[2020-01-20 06:29] LABS: CREATININE 0.98 mg/dL (0.55-1.02)
[2020-01-20 06:37] LABS: MD YES
[2020-01-20 06:40] LABS: BAND#(MANUAL) 5.66 x10^3/uL; BANDS%(MANUAL) 24 % (0-7); LYMPH#(MANUAL) 1.89 x10^3/uL (1-3.4); LYMPHS% (MANUAL) 8 % (22-44); MONOS#(MANUAL) 0.94 x10^3/uL (0.3-2.7); MONOS% (MANUAL) 4 % (2-9); MYELOCYTES# (MANUAL) 0.47 x10^3/uL (0-0); MYELOCYTES% (MANUAL) 2 % (0-0); SEG#(MANUAL) 14.63 x10^3/uL (1.8-6.8); SEGS% (MANUAL) 62 % (42-75)
[2020-01-20 06:42] LABS: <PLATELET ESTIMATE> ADEQUATE; <PLT MORPHOLOGY> NORMAL PLT MORPH; HYPOCHROMIA 1+
[2020-01-20 06:44] VITALS: BP 105/66
[2020-01-20] MEDS: PANCRELIPASE 24,000 CAPSULE.DR PO SCH ×4 (07:04→21:40)
[2020-01-20] MEDS: CALCIUM CARBONATE 500 MG TAB.CHEW PO SCH ×4 (07:04→21:40)
[2020-01-20] MEDS: VALACYCLOVIR 500MG TABLET PO SCH ×3 (07:04→21:40)
[2020-01-20] MEDS: INSULIN LISPRO 100 UNITS/ML, PEN SQ-INSULIN SCH ×4 (08:04→21:39)
[2020-01-20] MEDS: FAMOTIDINE 20 MG/2 ML IVPush SCH ×2 (08:04→21:40)
[2020-01-20] MEDS: ENOXAPARIN 40 MG/0.4 ML SQ SCH (08:04)
[2020-01-20] MEDS: ACETAMINOPHEN 500 MG TABLET PO PRN (08:05)
[2020-01-20] MEDS: SODIUM CHLORIDE FLUSH 10ML SYR IVF SCH ×2 (08:05→21:40)
[2020-01-20] MEDS: MEROPENEM 1 GM in SODIUM CHLORIDE 0.9% 100 ML IV SCH ×2 (10:01→21:39)
[2020-01-20 12:31] VITALS: BP 109/76
[2020-01-20] MEDS ORDERED: MAGNESIUM SULFATE PMX 2GM/50ML 50 ML IV ONE (15:30)
[2020-01-20] MEDS ORDERED: POTASSIUM PHOSPHATE 22 MEQ in SODIUM CHLORIDE 0.9% 500 ML IV ONE (16:00)
[2020-01-20] MEDS: MAGNESIUM CHLORIDE 64 MG TABLET.DR PO SCH (21:39)
[2020-01-20 21:55] VITALS: BP 99/62
[2020-01-21 01:53] VITALS: BP 109/67
[2020-01-21] MEDS: OXYcodone IR 5MG TABLET PO PRN ×4 (02:04→23:49)
[2020-01-21] MEDS: LORazepam 2 MG/ML, 1ML IV PRN (02:04)
[2020-01-21 05:52] LABS: MEAN CORPUSCULAR HEMOGLOBIN 29.3 pg (27.0-34.8); MEAN CORPUSCULAR HGB CONC 33.6 g/dL (32.4-35.8); MEAN CORPUSCULAR VOLUME 87.2 fL (80-100); MEAN PLATELET VOLUME 8.8 fL (7.4-10.4); PLATELET COUNT 295 x10^3/uL (130-400); RED BLOOD COUNT 3.36 x10^6/uL (3.82-5.3); RED CELL DISTRIBUTION WIDTH 15.4 % (9.6-15.2)
[2020-01-21 06:00] LABS: ANION GAP 16 mmol/L (5-15); CHLORIDE 103 mmol/L (98-107); CREATININE 0.75 mg/dL (0.55-1.02)
[2020-01-21] MEDS: CALCIUM CARBONATE 500 MG TAB.CHEW PO SCH ×4 (06:15→21:00)
[2020-01-21] MEDS: VALACYCLOVIR 500MG TABLET PO SCH ×3 (06:15→21:56)
[2020-01-21 06:41] LABS: MD YES
[2020-01-21 06:43] LABS: BAND#(MANUAL) 2.35 x10^3/uL; BANDS%(MANUAL) 10 % (0-7); LYMPH#(MANUAL) 0.94 x10^3/uL (1-3.4); LYMPHS% (MANUAL) 4 % (22-44); METAMYELOCYTES# (MANUAL) 1.65 x10^3/uL (0-0); METAMYELOCYTES% (MANUAL) 7 % (0-1); MONOS#(MANUAL) 0.94 x10^3/uL (0.3-2.7); MONOS% (MANUAL) 4 % (2-9); MYELOCYTES# (MANUAL) 1.18 x10^3/uL (0-0); MYELOCYTES% (MANUAL) 5 % (0-0); SEG#(MANUAL) 16.45 x10^3/uL (1.8-6.8); SEGS% (MANUAL) 70 % (42-75)
[2020-01-21 06:44] LABS: POLYCHROMASIA 1+
[2020-01-21 06:45] LABS: <PLATELET ESTIMATE> ADEQUATE; <PLT MORPHOLOGY> NORMAL PLT MORPH; TOXIC GRAN 1+
[2020-01-21] MEDS: PANCRELIPASE 24,000 CAPSULE.DR PO SCH ×4 (07:25→21:56)
[2020-01-21] MEDS: INSULIN LISPRO 100 UNITS/ML, PEN SQ-INSULIN SCH ×4 (07:26→22:03)
[2020-01-21] MEDS: SODIUM CHLORIDE FLUSH 10ML SYR IVF SCH ×2 (07:26→21:00)
[2020-01-21] MEDS: ACETAMINOPHEN 500 MG TABLET PO PRN (07:41)
[2020-01-21 07:53] VITALS: BP 115/71
[2020-01-21] MEDS: FAMOTIDINE 20 MG/2 ML IVPush SCH ×2 (09:13→21:57)
[2020-01-21] MEDS: ENOXAPARIN 40 MG/0.4 ML SQ SCH (09:13)
[2020-01-21] MEDS: MEROPENEM 1 GM in SODIUM CHLORIDE 0.9% 100 ML IV SCH ×2 (09:51→21:56)
[2020-01-21] MEDS: MAGNESIUM CHLORIDE 64 MG TABLET.DR PO SCH ×2 (09:52→21:56)
[2020-01-21 13:43] VITALS: BP 105/67
[2020-01-21 18:43] VITALS: BP 114/72
[2020-01-22] MEDS: FAMOTIDINE 20 MG/2 ML IVPush SCH ×3 (00:29→20:37)
[2020-01-22] MEDS: MEROPENEM 1 GM in SODIUM CHLORIDE 0.9% 100 ML IV SCH ×2 (00:29→12:49)
[2020-01-22 01:24] VITALS: BP 111/67
[2020-01-22 05:19] LABS: MEAN CORPUSCULAR HEMOGLOBIN 28.8 pg (27.0-34.8); MEAN CORPUSCULAR HGB CONC 33.2 g/dL (32.4-35.8); MEAN CORPUSCULAR VOLUME 86.8 fL (80-100); MEAN PLATELET VOLUME 8.5 fL (7.4-10.4); PLATELET COUNT 362 x10^3/uL (130-400); RED BLOOD COUNT 3.65 x10^6/uL (3.82-5.3); RED CELL DISTRIBUTION WIDTH 15.8 % (9.6-15.2)
[2020-01-22 05:20] LABS: ANION GAP 13 mmol/L (5-15); CALCIUM 7.5 mg/dL (8.5-10.1); CHLORIDE 101 mmol/L (98-107); CREATININE 0.72 mg/dL (0.55-1.02)
[2020-01-22 05:46] LABS: MD YES
[2020-01-22 05:49] LABS: BANDS%(MANUAL) 10 % (0-7); EOS#(MANUAL) 0.19 x10^3/uL (0.0-0.4); EOS% (MANUAL) 1 % (1-7); LYMPH#(MANUAL) 2.09 x10^3/uL (1-3.4); LYMPHS% (MANUAL) 11 % (22-44); METAMYELOCYTES# (MANUAL) 0.38 x10^3/uL (0-0); METAMYELOCYTES% (MANUAL) 2 % (0-1); MONOS#(MANUAL) 1.52 x10^3/uL (0.3-2.7); MONOS% (MANUAL) 8 % (2-9); MYELOCYTES# (MANUAL) 0.19 x10^3/uL (0-0); MYELOCYTES% (MANUAL) 1 % (0-0); POLYCHROMASIA 1+; SEG#(MANUAL) 12.73 x10^3/uL (1.8-6.8); SEGS% (MANUAL) 67 % (42-75)
[2020-01-22 05:50] LABS: <PLATELET ESTIMATE> ADEQUATE; <PLT MORPHOLOGY> NORMAL PLT MORPH; ANISOCYTOSIS 1+; OVALOCYTES 1+; TOXIC GRAN 1+
[2020-01-22] MEDS: VALACYCLOVIR 500MG TABLET PO SCH ×3 (06:16→20:37)
[2020-01-22] MEDS: CALCIUM CARBONATE 500 MG TAB.CHEW PO SCH ×4 (06:16→20:36)
[2020-01-22] MEDS: PANCRELIPASE 24,000 CAPSULE.DR PO SCH ×4 (06:16→20:36)
[2020-01-22 07:34] VITALS: BP 130/79
[2020-01-22] MEDS: MAGNESIUM CHLORIDE 64 MG TABLET.DR PO SCH ×2 (07:58→20:48)
[2020-01-22] MEDS: ENOXAPARIN 40 MG/0.4 ML SQ SCH (07:58)
[2020-01-22] MEDS: SODIUM CHLORIDE FLUSH 10ML SYR IVF SCH ×2 (07:59→21:00)
[2020-01-22] MEDS: INSULIN LISPRO 100 UNITS/ML, PEN SQ-INSULIN SCH ×4 (08:00→20:49)
[2020-01-22] MEDS: OXYcodone IR 5MG TABLET PO PRN ×2 (08:17→20:20)
[2020-01-22] MEDS ORDERED: BISACODYL 10 MG SUPP PR PRN (08:30)
[2020-01-22] MEDS: DOCUSATE 100 MG CAPSULE PO SCH ×2 (09:43→20:36)
[2020-01-22] MEDS: MAGNESIUM HYDROXIDE 8%, 30ML UDC PO PRN (09:43)
[2020-01-22] MEDS ORDERED: MAGNESIUM SULFATE PMX 2GM/50ML 50 ML IV ONE (10:00)
[2020-01-22] MEDS ORDERED: FUROSEMIDE 20 MG/2 ML IV ONE (13:30)
[2020-01-22 15:10] VITALS: BP 121/74
[2020-01-22 18:46] VITALS: BP 129/78
[2020-01-23] MEDS: LORazepam 2 MG/ML, 1ML IV PRN ×2 (00:53→21:15)
[2020-01-23] MEDS: MEROPENEM 1 GM in SODIUM CHLORIDE 0.9% 100 ML IV SCH ×2 (00:53→12:44)
[2020-01-23 01:32] VITALS: BP 133/74
[2020-01-23] MEDS: CALCIUM CARBONATE 500 MG TAB.CHEW PO SCH ×4 (05:20→21:15)
[2020-01-23] MEDS: OXYcodone IR 5MG TABLET PO PRN ×2 (05:20→21:15)
[2020-01-23 06:21] LABS: MEAN CORPUSCULAR HGB CONC 33.6 g/dL (32.4-35.8); MEAN CORPUSCULAR VOLUME 86.4 fL (80-100); PLATELET COUNT 328 x10^3/uL (130-400); RED CELL DISTRIBUTION WIDTH 16.1 % (9.6-15.2)
[2020-01-23 06:32] LABS: ANION GAP 16 mmol/L (5-15); CALCIUM 7.3 mg/dL (8.5-10.1); CHLORIDE 98 mmol/L (98-107)
[2020-01-23 06:35] LABS: MD YES
[2020-01-23] MEDS: VALACYCLOVIR 500MG TABLET PO SCH ×3 (06:37→21:15)
[2020-01-23 06:41] LABS: <PLATELET ESTIMATE> ADEQUATE; <PLT MORPHOLOGY> NORMAL PLT MORPH; ANISOCYTOSIS 1+; BAND#(MANUAL) 1.55 x10^3/uL; BANDS%(MANUAL) 11 % (0-7); LYMPH#(MANUAL) 1.41 x10^3/uL (1-3.4); LYMPHS% (MANUAL) 10 % (22-44); METAMYELOCYTES# (MANUAL) 0.85 x10^3/uL (0-0); METAMYELOCYTES% (MANUAL) 6 % (0-1); MONOS#(MANUAL) 0.71 x10^3/uL (0.3-2.7); MONOS% (MANUAL) 5 % (2-9); MYELOCYTES# (MANUAL) 0.28 x10^3/uL (0-0); MYELOCYTES% (MANUAL) 2 % (0-0); OVALOCYTES 1+; POLYCHROMASIA 1+; SEG#(MANUAL) 9.31 x10^3/uL (1.8-6.8); SEGS% (MANUAL) 66 % (42-75); TOXIC GRAN 1+
[2020-01-23] MEDS ORDERED: FAMOTIDINE 20 MG TABLET ONE (07:28)
[2020-01-23] MEDS: INSULIN LISPRO 100 UNITS/ML, PEN SQ-INSULIN SCH ×4 (07:53→21:17)
[2020-01-23] MEDS: SODIUM CHLORIDE FLUSH 10ML SYR IVF SCH ×2 (07:53→21:16)
[2020-01-23] MEDS: ENOXAPARIN 40 MG/0.4 ML SQ SCH (07:53)
[2020-01-23] MEDS: PANCRELIPASE 24,000 CAPSULE.DR PO SCH ×4 (07:53→21:15)
[2020-01-23] MEDS: MAGNESIUM CHLORIDE 64 MG TABLET.DR PO SCH ×2 (07:53→21:15)
[2020-01-23] MEDS: FAMOTIDINE 20 MG TABLET PO SCH ×2 (07:54→21:15)
[2020-01-23] MEDS: DOCUSATE 100 MG CAPSULE PO SCH ×2 (07:54→21:16)
[2020-01-23 08:08] VITALS: BP 118/70
[2020-01-23] MEDS ORDERED: POTASSIUM CHLORIDE 40 MEQ in SODIUM CHLORIDE 0.9% 500 ML IV ONE (10:00)
[2020-01-23] MEDS ORDERED: MAGNESIUM SULFATE PMX 2GM/50ML 50 ML IV ONE (10:00)
[2020-01-23] MEDS: MAGNESIUM HYDROXIDE 8%, 30ML UDC PO PRN (11:24)
[2020-01-23 12:01] VITALS: BP 113/73
[2020-01-23 18:49] VITALS: BP 125/71
[2020-01-24] MEDS: MEROPENEM 1 GM in SODIUM CHLORIDE 0.9% 100 ML IV SCH ×2 (00:50→12:00)
[2020-01-24 02:16] VITALS: BP 105/56
[2020-01-24] MEDS: OXYcodone IR 5MG TABLET PO PRN ×3 (02:22→20:59)
[2020-01-24 05:56] LABS: MEAN CORPUSCULAR HEMOGLOBIN 29.2 pg (27.0-34.8); MEAN CORPUSCULAR HGB CONC 33.9 g/dL (32.4-35.8); MEAN CORPUSCULAR VOLUME 86.2 fL (80-100); MEAN PLATELET VOLUME 8.2 fL (7.4-10.4); PLATELET COUNT 350 x10^3/uL (130-400); RED BLOOD COUNT 3.37 x10^6/uL (3.82-5.3); RED CELL DISTRIBUTION WIDTH 15.7 % (9.6-15.2)
[2020-01-24 06:05] LABS: ANION GAP 15 mmol/L (5-15); CALCIUM 7.3 mg/dL (8.5-10.1); CHLORIDE 100 mmol/L (98-107); CREATININE 0.54 mg/dL (0.55-1.02)
[2020-01-24] MEDS: VALACYCLOVIR 500MG TABLET PO SCH ×3 (06:43→20:59)
[2020-01-24] MEDS: CALCIUM CARBONATE 500 MG TAB.CHEW PO SCH ×4 (06:43→20:58)
[2020-01-24] MEDS: PANCRELIPASE 24,000 CAPSULE.DR PO SCH ×4 (06:46→20:58)
[2020-01-24 07:07] LABS: MD YES
[2020-01-24 07:08] LABS: ANISOCYTOSIS 1+; BAND#(MANUAL) 1.29 x10^3/uL; BANDS%(MANUAL) 11 % (0-7); LYMPH#(MANUAL) 1.52 x10^3/uL (1-3.4); LYMPHS% (MANUAL) 13 % (22-44); METAMYELOCYTES# (MANUAL) 0.12 x10^3/uL (0-0); METAMYELOCYTES% (MANUAL) 1 % (0-1); MONOS#(MANUAL) 0.47 x10^3/uL (0.3-2.7); MONOS% (MANUAL) 4 % (2-9); OVALOCYTES 1+; POLYCHROMASIA 1+; SEG#(MANUAL) 8.31 x10^3/uL (1.8-6.8); SEGS% (MANUAL) 71 % (42-75)
[2020-01-24 07:09] LABS: <PLATELET ESTIMATE> ADEQUATE; <PLT MORPHOLOGY> NORMAL PLT MORPH; TOXIC GRAN 1+
[2020-01-24 07:17] VITALS: BP 113/74
[2020-01-24] MEDS: INSULIN LISPRO 100 UNITS/ML, PEN SQ-INSULIN SCH ×4 (07:52→20:59)
[2020-01-24] MEDS: ENOXAPARIN 40 MG/0.4 ML SQ SCH (08:15)
[2020-01-24] MEDS: DOCUSATE 100 MG CAPSULE PO SCH ×2 (08:16→21:00)
[2020-01-24] MEDS: MAGNESIUM CHLORIDE 64 MG TABLET.DR PO SCH ×2 (08:16→20:58)
[2020-01-24] MEDS: SODIUM CHLORIDE FLUSH 10ML SYR IVF SCH ×2 (08:16→21:00)
[2020-01-24] MEDS: FAMOTIDINE 20 MG TABLET PO SCH ×2 (08:16→20:59)
[2020-01-24 14:01] VITALS: BP 117/70
[2020-01-24 18:46] VITALS: BP 115/57
[2020-01-24] MEDS: LORazepam 2 MG/ML, 1ML IV PRN (21:30)
[2020-01-25] MEDS: MEROPENEM 1 GM in SODIUM CHLORIDE 0.9% 100 ML IV SCH (00:11)
[2020-01-25 00:22] VITALS: BP 116/73
[2020-01-25] MEDS: PANCRELIPASE 24,000 CAPSULE.DR PO SCH ×2 (05:43→10:23)
[2020-01-25 05:44] LABS: MEAN CORPUSCULAR HEMOGLOBIN 28.9 pg (27.0-34.8); MEAN CORPUSCULAR HGB CONC 33.9 g/dL (32.4-35.8); MEAN CORPUSCULAR VOLUME 85.2 fL (80-100); MEAN PLATELET VOLUME 8.1 fL (7.4-10.4); PLATELET COUNT 364 x10^3/uL (130-400); RED BLOOD COUNT 3.32 x10^6/uL (3.82-5.3)
[2020-01-25] MEDS: VALACYCLOVIR 500MG TABLET PO SCH (05:44)
[2020-01-25] MEDS: CALCIUM CARBONATE 500 MG TAB.CHEW PO SCH ×2 (05:44→10:23)
[2020-01-25] MEDS: OXYcodone IR 5MG TABLET PO PRN ×2 (05:44→11:30)
[2020-01-25 05:50] LABS: ANION GAP 15 mmol/L (5-15); CALCIUM 6.9 mg/dL (8.5-10.1); CHLORIDE 100 mmol/L (98-107); CREATININE 0.57 mg/dL (0.55-1.02)
[2020-01-25 06:34] LABS: MD YES
[2020-01-25 06:37] LABS: BAND#(MANUAL) 1.85 x10^3/uL; BANDS%(MANUAL) 15 % (0-7); LYMPH#(MANUAL) 1.35 x10^3/uL (1-3.4); LYMPHS% (MANUAL) 11 % (22-44); METAMYELOCYTES# (MANUAL) 0.25 x10^3/uL (0-0); METAMYELOCYTES% (MANUAL) 2 % (0-1); MONOS#(MANUAL) 0.49 x10^3/uL (0.3-2.7); MONOS% (MANUAL) 4 % (2-9); SEG#(MANUAL) 8.36 x10^3/uL (1.8-6.8); SEGS% (MANUAL) 68 % (42-75)
[2020-01-25 06:38] LABS: <PLATELET ESTIMATE> ADEQUATE; <PLT MORPHOLOGY> NORMAL PLT MORPH; ANISOCYTOSIS 1+; OVALOCYTES 1+; POLYCHROMASIA 1+; TOXIC GRAN 1+
[2020-01-25 07:26] VITALS: BP 126/55
[2020-01-25] MEDS: INSULIN LISPRO 100 UNITS/ML, PEN SQ-INSULIN SCH ×2 (07:37→11:12)
[2020-01-25] MEDS ORDERED: AMOX1TAB64 PO (08:14)
[2020-01-25] MEDS ORDERED: OXYC5CAP2 PO (08:14)
[2020-01-25] MEDS ORDERED: METR500T PO (08:15)
[2020-01-25] MEDS ORDERED: ONDA4TAB7 PO (08:16)
[2020-01-25] MEDS: ENOXAPARIN 40 MG/0.4 ML SQ SCH (08:19)
[2020-01-25] MEDS: MAGNESIUM CHLORIDE 64 MG TABLET.DR PO SCH (08:19)
[2020-01-25] MEDS: SODIUM CHLORIDE FLUSH 10ML SYR IVF SCH (08:20)
[2020-01-25] MEDS: FAMOTIDINE 20 MG TABLET PO SCH (08:20)
[2020-01-25] MEDS: DOCUSATE 100 MG CAPSULE PO SCH (08:20)
== END 2020-01-25 12:09 | disposition home or self-care (01) | DRG 405 ==
LOC: ORIP 11:51 → 4NE 18:39
PROVIDERS: ADMIT Surgery; ATTEND Internal Medicine
PROC: 0FBG4ZZ Excision of Pancreas, Percutaneous Endoscopic Approach (ICD-10-PCS; 2020-01-08)
PROC: 03HY32Z Insertion of Monitoring Device into Upper Artery, Percutaneous Approach (ICD-10-PCS; 2020-01-08)
PROC: 8E0W4CZ Robotic Assisted Procedure of Trunk Region, Percutaneous Endoscopic Approach (ICD-10-PCS; 2020-01-08)
PROC: 02HV33Z Insertion of Infusion Device into Superior Vena Cava, Percutaneous Approach (ICD-10-PCS; principal; 2020-01-09)
PROC: B5181ZA Fluoroscopy of Superior Vena Cava using Low Osmolar Contrast, Guidance (ICD-10-PCS; 2020-01-09)
PROC: B548ZZA Ultrasonography of Superior Vena Cava, Guidance (ICD-10-PCS; 2020-01-09)
DX: K86.3 Pseudocyst of pancreas (principal); J18.9 Pneumonia, unspecified organism; N17.0 Acute kidney failure with tubular necrosis; E87.1 Hypo-osmolality and hyponatremia; B00.1 Herpesviral vesicular dermatitis; K86.1 Other chronic pancreatitis; D18.03 Hemangioma of intra-abdominal structures; D63.8 Anemia in other chronic diseases classified elsewhere; E11.65 Type 2 diabetes mellitus with hyperglycemia; E88.09 Other disorders of plasma-protein metabolism, not elsewhere classified; F10.20 Alcohol dependence, uncomplicated; G89.29 Other chronic pain; I10 Essential (primary) hypertension; I86.4 Gastric varices; Z80.3 Family history of malignant neoplasm of breast; Z87.891 Personal history of nicotine dependence
CPT/HCPCS: 36415; 74240; 84145; J3490; 36573; 71046; 74160; 80048; 80053; 81003; 81025; 82040; 82947; 82962; 83605; 83690; 83735; 84100; 85025; 86850; 86900; 87040; 87070; 87086; 93306; G0378; J0744; J1100; J1170; J1650; J1815; J1885; J2185; J2250; J2270; J2405; J2704; J2710; J3010; J3480; Q9967; C1751; J0330; J1200; J1940; J2060; J3475; J7030; J7040; J7120

== ENCOUNTER 2020-01-27 00:38 | Emergency (ER) | payer MEDICAID ==
[~2020-01-27] VITALS: Ht 162.6 cm; Wt 83.2 kg
[~2020-01-27 00:38] MED LIST changes: +AMOX1TAB64 PO; +METR500T PO; +ONDA4TAB7 PO; +OXYC5CAP2 PO
[2020-01-27] MEDS ORDERED: SODIUM CHLORIDE FLUSH 10ML SYR IVF ONE (01:00)
[2020-01-27] MEDS ORDERED: SODIUM CHLORIDE 0.9% 1,000ML IVBOLUS ONE (01:00)
[2020-01-27] MEDS ORDERED: ONDANSETRON 2MG/ML, 2ML IVPush ONE (01:00)
[2020-01-27] MEDS ORDERED: PROMETHAZINE 25 MG/ML, 1ML IM ONE (01:00)
[2020-01-27 01:22] LABS: MEAN CORPUSCULAR HEMOGLOBIN 28.7 pg (27.0-34.8); MEAN CORPUSCULAR HGB CONC 33.4 g/dL (32.4-35.8); MEAN PLATELET VOLUME 8.5 fL (7.4-10.4); PLATELET COUNT 526 x10^3/uL (130-400); RED BLOOD COUNT 3.99 x10^6/uL (3.82-5.3); RED CELL DISTRIBUTION WIDTH 16.1 % (9.6-15.2)
[2020-01-27] MEDS ORDERED: ONDANSETRON 2MG/ML, 2ML ONE (01:27)
[2020-01-27] MEDS ORDERED: PROMETHAZINE 25 MG/ML, 1ML ONE (01:27)
[2020-01-27 01:29] LABS: ALANINE AMINOTRANSFERASE 20 U/L (12-78); ALBUMIN 1.9 g/dL (3.4-5.0); ANION GAP 13 mmol/L (5-15); CALCIUM 8.4 mg/dL (8.5-10.1); CHLORIDE 96 mmol/L (98-107); CREATININE 0.79 mg/dL (0.55-1.02)
[2020-01-27 01:30] LABS: MD YES
[2020-01-27 01:32] LABS: ALKALINE PHOSPHATASE 99 U/L (45-117); ANISOCYTOSIS 1+; BANDS%(MANUAL) 11 % (0-7); LYMPH#(MANUAL) 1.06 x10^3/uL (1-3.4); LYMPHS% (MANUAL) 9 % (22-44); METAMYELOCYTES# (MANUAL) 0.24 x10^3/uL (0-0); METAMYELOCYTES% (MANUAL) 2 % (0-1); MONOS#(MANUAL) 0.47 x10^3/uL (0.3-2.7); MONOS% (MANUAL) 4 % (2-9); OVALOCYTES 1+; POLYCHROMASIA 1+; SEG#(MANUAL) 8.73 x10^3/uL (1.8-6.8); SEGS% (MANUAL) 74 % (42-75); TOTAL PROTEIN 7.1 g/dL (6.4-8.2)
[2020-01-27 01:33] LABS: <PLATELET ESTIMATE> INCREASED; <PLT MORPHOLOGY> NORMAL PLT MORPH; PMNS WITH VACUOLES 1+; TOXIC GRAN 1+
[2020-01-27 01:53] LABS: MICROSCOPIC NOT IND
[2020-01-27] MEDS ORDERED: POTASSIUM CHLORIDE 20 MEQ TAB.ER.PRT PO ONE ×2 (02:00)
[2020-01-27] MEDS ORDERED: FAMOTIDINE 20 MG TABLET PO ONE (02:00)
[2020-01-27 02:03] LABS: CULTURE INDICATED? NO
[2020-01-27] MEDS ORDERED: MAGNESIUM OXIDE 400 MG TABLET PO ONE (02:30)
[2020-01-27] MEDS ORDERED: MAGNESIUM OXIDE 400 MG TABLET ONE (02:34)
[2020-01-27] MEDS ORDERED: FAMOTIDINE 20 MG TABLET ONE (02:34)
[2020-01-27] MEDS ORDERED: POTASSIUM CHLORIDE 20 MEQ TAB.ER.PRT ONE (02:34)
[2020-01-27 02:41] VITALS: BP 135/63
== END 2020-01-27 02:52 | disposition home or self-care (01) ==
LOC: ED 02:45
DX: R10.84 Generalized abdominal pain (principal); E11.65 Type 2 diabetes mellitus with hyperglycemia; E87.6 Hypokalemia; E83.42 Hypomagnesemia; R11.2 Nausea with vomiting, unspecified; G89.29 Other chronic pain; I10 Essential (primary) hypertension; E78.5 Hyperlipidemia, unspecified; E11.40 Type 2 diabetes mellitus with diabetic neuropathy, unspecified; Z87.891 Personal history of nicotine dependence
CPT/HCPCS: 36415; 80053; 81003; 83690; 83735; 85025; 96361; 96372; 96374; 99284; J2405; J2550; J7030

== ENCOUNTER 2020-02-17 08:08 | Inpatient (IN) | payer MEDICAID ==
[~2020-02-17] VITALS: Ht 160 cm; Wt 63.6 kg
--- NOTE | 2020-02-17 08:10 | NUR ---
PT BIB [facility] FOR NEW ONSET SZ ACTIVITY THAT OCCURRED WHILE PT WAS ON COUCH PER . PT YELLED FOR HER BOYFRIEND AND HE CALLED [facility] AT 0733 WHILE WITNESSING SZ ACTIVITY. PER RMESA PT HAD ANOTHER SZ. BS WAS 541. BOYFRIEND REPORTS EXTENSIVE HX OF PANCREATITIS AND HYPERGLYCEMIA RECENTLY WITH [facility] IN THE 500S IN THE AM. PT ON MONITOR AND SEDATED AFTER 5 MG OF VERSED VIA [facility] NURSE INSTRUCTOR. PUPILS PINPOINT AND REACTIVE.
--- NOTE | 2020-02-17 08:30 | NUR ---
DR. SALVADOR AT BEDSIDE.
--- NOTE | 2020-02-17 09:16 | NUR ---
PT TO CT. PT MORE ALERT AND OPENS EYES TO VERBAL STIMULI. PT IS STILL DROWSY.
[2020-02-17 09:28] LABS: MEAN CORPUSCULAR HEMOGLOBIN 28.3 pg (27.0-34.8); MEAN CORPUSCULAR HGB CONC 32.7 g/dL (32.4-35.8); MEAN CORPUSCULAR VOLUME 86.6 fL (80-100); MEAN PLATELET VOLUME 10.8 fL (7.4-10.4); PLATELET COUNT 377 x10^3/uL (130-400); RED BLOOD COUNT 3.75 x10^6/uL (3.82-5.3); RED CELL DISTRIBUTION WIDTH 16.5 % (9.6-15.2)
[2020-02-17 09:29] LABS: ALBUMIN 1.6 g/dL (3.4-5.0); ANION GAP 25 mmol/L (5-15); CHLORIDE 86 mmol/L (98-107)
[2020-02-17 09:31] LABS: MD YES
[2020-02-17 09:35] LABS: ALKALINE PHOSPHATASE 145 U/L (45-117); BILIRUBIN,TOTAL 0.5 mg/dL (0.2-1.0); CREATININE 2.74 mg/dL (0.55-1.02); TOTAL PROTEIN 6.5 g/dL (6.4-8.2); TROPONIN I < 0.015 ng/mL (0.000-0.045)
[2020-02-17 09:36] LABS: ALANINE AMINOTRANSFERASE 7 U/L (12-78)
[2020-02-17 09:37] LABS: METAMYELOCYTES# (MANUAL) 0.74 x10^3/uL (0-0); METAMYELOCYTES% (MANUAL) 2 % (0-1); MYELOCYTES# (MANUAL) 0.74 x10^3/uL (0-0); MYELOCYTES% (MANUAL) 2 % (0-0)
[2020-02-17 09:38] LABS: BAND#(MANUAL) 8.93 x10^3/uL; BANDS%(MANUAL) 24 % (0-7); LYMPH#(MANUAL) 2.23 x10^3/uL (1-3.4); LYMPHS% (MANUAL) 6 % (22-44); MONOS#(MANUAL) 1.12 x10^3/uL (0.3-2.7); MONOS% (MANUAL) 3 % (2-9); PMNS WITH VACUOLES 1+; SEG#(MANUAL) 23.44 x10^3/uL (1.8-6.8); SEGS% (MANUAL) 63 % (42-75)
[2020-02-17 09:39] LABS: ANISOCYTOSIS 1+; ECHINOCYTES 1+; POLYCHROMASIA 1+
--- NOTE | 2020-02-17 09:39 | NUR ---
BS WAS 659 PER LAB. RESULT GIVEN TO DR. SALVADOR. PT C/O NEW ABD PAIN ON LLQ. DR. SALVADOR AWARE. FLUIDS RUNNING PER .
[2020-02-17 09:40] LABS: <PLATELET ESTIMATE> ADEQUATE; LARGE PLATELETS 1+
[2020-02-17] MEDS ORDERED: SODIUM CHLORIDE 0.9% 1,000ML IVBOLUS ONE ×2 (10:00→12:00)
[2020-02-17] MEDS ORDERED: PIPERACILLIN/TAZO/PMX 3.375GM 50 ML IV ONE (10:00)
[2020-02-17] MEDS ORDERED: LACTATED RINGERS 1,000 ML IVBOLUS ONE ×2 (10:00→10:30)
--- NOTE | 2020-02-17 10:00 | NUR ---
PER BOYFRIEND AT BEDSIDE, PT'S BP AT HOME HAS BEEN PERIODICALLY WHEN PT HAS CHECKED WITH IT BEING LOW 80/50. PT ALSO HAS BEEN REPORTING DIZZIINESS FOR ONE TO TWO WEEKS.
--- NOTE | 2020-02-17 10:20 | NUR ---
PT RECEIVED 500 MLS OF NS VIA [facility] SCRUB WOMAN AND THE REST OF LITER BAG FINISHED. LR STARTED PER DR. SALVADOR.
--- NOTE | 2020-02-17 10:21 | NUR ---
PT TO CT. BP 101/39.
[2020-02-17 10:25] LABS: ACETONE, SERUM Moderate(40mg/dL) (Negative)
--- NOTE | 2020-02-17 10:39 | NUR ---
BLOOD CULTURES X 2 WERE DRAWN PRIOR TO PT GOING TO CT.
[2020-02-17] MEDS ORDERED: PIPERACILLIN/TAZO/PMX 3.375GM 50 ML ONE (10:41)
--- NOTE | 2020-02-17 10:43 | NUR ---
PT BACK FROM CT AND METER REPAIR SHOP SUPERVISOR CAME OUT INTO HALLWAY STATING PT HAD ANOTHER SEIZURE AND HR WAS ABOVE 200. ON ENTRY TO ROOM PT WAS IN A WIDE COMPLEX TACHYCARDIA AT A RATE OF 204. AHRVEY SAM CALLED TO GET ADDITIONAL HELP. PT HAD PULSES AND WAS BREATHING WITH A SAT OF 98% ON 4 LITERS. Addendum: 02/17/20 at 1145 by ALEGLJAIME ON ENTRY TO ROOM THERE WAS NO SEIZURE ACTIVITY APPRECIATED.
[2020-02-17] MEDS ORDERED: LORazepam 2 MG/ML, 1ML ONE ×2 (10:44→12:57)
[2020-02-17] MEDS ORDERED: DILTIAZEM 5 MG/ML, 5ML ONE (10:44)
[2020-02-17] MEDS ORDERED: FENTANYL PF 100 MCG/2ML ONE ×2 (10:56→17:35)
[2020-02-17] MEDS ORDERED: DILTIAZEM 125 MG in SODIUM CHLORIDE 0.9% 100 ML IV ONE (11:00)
--- NOTE | 2020-02-17 11:11 | NUR ---
dr penny spoke with dr larson
--- NOTE | 2020-02-17 11:14 | NUR ---
1043 CODE BLUE CALLED, PT FOUND TO BE SEIZING, HR 200'S. DR SALVADOR TO BEDSIDE. 1045 PT GIVEN CARDIZEM 10MG IVP. 1047 LEFT ARM, 120/42 172P 99% 4L NC. 1048 RIGHT ARM 114/49 147P 1050 ADENISON 6MG IVP GIVEN HR REMAINS ELEVATED. 1052 ADENISON 6MG IVP GIVEN. 1054 HR 212 RAPID AFIB/SVT, ADENISON 6MG IVP. 1056 AMIODARONE 150MG IVP 99/48 169-196 PULSE. 1059 107/38 164PULSE 26 RRR 99% 4L NC. 1100 3RD IV PLACED IN RFA 20G. 1102 CARDIZEM GTT STARTED AT 5MG/HR. 90/43 PULSE 152. 1107 PT MOVED TO TRAUMA ROOM 4. 1110 101/[address] FINNEY AT BEDSIDE TO EVAL PT. PTS SO AT BEDSIDE.
--- NOTE | 2020-02-17 11:21 | NUR ---
PER DR FINNEY DILTIZEM INCREASED TO 10MG/HR. PT WITH SNORING RESP, AROUSES TO NAME/TOUCH. "I CANT STAY AWAKE" 2ND LITER OF LR INFUSING. ZOSYN INFUSING.
--- NOTE | 2020-02-17 11:25 | NUR ---
DR SALVADOR AT BEDSIDE TO DISCUSS CT RESULTS WITH PTS S/O.
[2020-02-17] MEDS ORDERED: MAGNESIUM SULFATE PMX 2GM/50ML 50 ML ONE (11:27)
[2020-02-17] MEDS ORDERED: MAGNESIUM SULFATE PMX 2GM/50ML 50 ML IV ONE (11:30)
--- NOTE | 2020-02-17 11:32 | NUR ---
DR SALVADOR AWARE OF BP 88/46 WITH MAP 69 HR 160-180'S.
[2020-02-17] MEDS ORDERED: FILTER 0.22 MICRON ONE (11:41)
[2020-02-17] MEDS ORDERED: CODE BLUE RESPONSE XX ONE (11:41)
[2020-02-17] MEDS ORDERED: ADENOSINE 6 MG/2 ML ONE (11:41)
[2020-02-17] MEDS ORDERED: AMIODARONE 50 MG/ML, 3ML ONE ×2 (11:41)
[2020-02-17] MEDS ORDERED: DEXTROSE 5%, 250ML ONE (11:41)
--- NOTE | 2020-02-17 11:42 | NUR ---
NEOSYNEPHRINE REQUESTED FROM PHARMACY. LOGGING ENGINEER AT BEDSIDE TO DRAW LABS. CONT HR 150-180'S
--- NOTE | 2020-02-17 11:52 | NUR ---
ACCOUNT RECEIVABLE CLERK AT BEDSIDE TO DRAW LABS, INCLUDING ABG. DILTIZEM CONT TO INFUSE. HR 140-170'S
[2020-02-17] MEDS ORDERED: LACTULOSE 10 GM/15 ML UDC PO PRN (12:00)
[2020-02-17] MEDS ORDERED: ENALAPRILAT 1.25 MG/ML, 1ML IVPush PRN (12:00)
[2020-02-17] MEDS ORDERED: DOCUSATE 100 MG CAPSULE PO PRN (12:00)
[2020-02-17] MEDS ORDERED: LABETALOL 5MG/ML, 20ML IVPush PRN (12:00)
--- NOTE | 2020-02-17 12:00 | NUR ---
REPORT TO NANNETTE GRAVES. POC DISCUSSED.
--- NOTE | 2020-02-17 12:03 | NUR ---
DR JUNG AT BEDSIDE TO EVAL PT
[2020-02-17] MEDS: REGULAR INSULIN 100 UNITS in SODIUM CHLORIDE 0.9% 99 ML IV PRN ×2 (12:11→17:35)
[2020-02-17 12:25] LABS: ALBUMIN 1.6 g/dL (3.4-5.0); ANION GAP 27 mmol/L (5-15); CALCIUM 7.7 mg/dL (8.5-10.1); CHLORIDE 89 mmol/L (98-107)
[2020-02-17 12:29] LABS: ALKALINE PHOSPHATASE 175 U/L (45-117); BILIRUBIN,TOTAL 0.4 mg/dL (0.2-1.0); CREATININE 2.57 mg/dL (0.55-1.02); TOTAL PROTEIN 6.6 g/dL (6.4-8.2); TROPONIN I < 0.015 ng/mL (0.000-0.045)
[2020-02-17] MEDS ORDERED: ADENOSINE 6 MG/2 ML IVPush ONE ×3 (12:30)
[2020-02-17 12:32] LABS: ALANINE AMINOTRANSFERASE < 6 U/L (12-78)
[2020-02-17 12:40] LABS: MICROSCOPIC NOT IND
[2020-02-17 12:55] LABS: AMPHETAMINE SCREEN, URINE Negative (Negative); BARBITURATE SCREEN, URINE Negative (Negative); BENZODIAZEPINE SCREEN, URINE Positive (Negative); CANNABINOID SCREEN, URINE Negative (Negative); COCAINE SCREEN, URINE Negative (Negative); METHADONE SCREEN, URINE Negative (Negative); OPIATE SCREEN, URINE Positive (Negative)
[2020-02-17] MEDS: D5%-0.45NACL+KCL 20MEQ 1,000 ML IV SCH ×2 (13:00→17:18)
[2020-02-17] MEDS: SODIUM CHLORIDE 0.9% 1,000 ML IV SCH ×3 (13:27→20:40)
[2020-02-17] MEDS ORDERED: DILTIAZEM 125 MG in SODIUM CHLORIDE 0.9% 100 ML IV PRN (13:30)
[2020-02-17] MEDS ORDERED: MAGNESIUM SULFATE PMX 4GM/100M 100 ML IV ONE (13:30)
[2020-02-17 13:43] LABS: MEAN CORPUSCULAR HEMOGLOBIN 28.2 pg (27.0-34.8); MEAN CORPUSCULAR HGB CONC 31.9 g/dL (32.4-35.8); MEAN CORPUSCULAR VOLUME 88.4 fL (80-100); MEAN PLATELET VOLUME 10.4 fL (7.4-10.4); PLATELET COUNT 504 x10^3/uL (130-400); RED BLOOD COUNT 3.81 x10^6/uL (3.82-5.3); RED CELL DISTRIBUTION WIDTH 16.7 % (9.6-15.2)
[2020-02-17 13:44] LABS: MD YES
[2020-02-17 13:46] LABS: BAND#(MANUAL) 14.48 x10^3/uL; BANDS%(MANUAL) 26 % (0-7); EOS#(MANUAL) 0.56 x10^3/uL (0.0-0.4); EOS% (MANUAL) 1 % (1-7); LYMPH#(MANUAL) 2.79 x10^3/uL (1-3.4); LYMPHS% (MANUAL) 5 % (22-44); MYELOCYTES# (MANUAL) 1.11 x10^3/uL (0-0); MYELOCYTES% (MANUAL) 2 % (0-0)
[2020-02-17 13:47] LABS: METAMYELOCYTES# (MANUAL) 2.79 x10^3/uL (0-0); METAMYELOCYTES% (MANUAL) 5 % (0-1); MONOS#(MANUAL) 0.56 x10^3/uL (0.3-2.7); MONOS% (MANUAL) 1 % (2-9); PMNS WITH VACUOLES 2+; SEG#(MANUAL) 33.42 x10^3/uL (1.8-6.8); SEGS% (MANUAL) 60 % (42-75); TOXIC GRAN 1+
[2020-02-17 13:50] LABS: <PLATELET ESTIMATE> INCREASED; <PLT MORPHOLOGY> NORMAL PLT MORPH; ANISOCYTOSIS 1+; ECHINOCYTES 1+; POLYCHROMASIA 1+
[2020-02-17] MEDS ORDERED: METOPROLOL 1 MG/ML, 5ML ONE (13:50)
[2020-02-17] MEDS ORDERED: LORazepam 2 MG/ML, 1ML IVPush PRN (14:00)
[2020-02-17] MEDS ORDERED: METOPROLOL 1 MG/ML, 5ML IVPush ONE (14:00)
[2020-02-17] MEDS: LINEZOLID PMX 600MG/300ML 300 ML IV SCH (14:08)
[2020-02-17] MEDS ORDERED: SODIUM CHLORIDE 0.9%, 500ML IVBOLUS ONE (15:30)
[2020-02-17] MEDS: PHENYLEPHRINE 50 MG in SODIUM CHLORIDE 0.9% 245 ML IV PRN ×2 (16:10→17:36)
[2020-02-17 16:26] LABS: ANION GAP 21 mmol/L (5-15); CALCIUM 6.8 mg/dL (8.5-10.1); CHLORIDE 99 mmol/L (98-107); CREATININE 2.23 mg/dL (0.55-1.02)
[2020-02-17 16:30] LABS: TROPONIN I < 0.015 ng/mL (0.000-0.045)
[2020-02-17] MEDS: PIPERACILLIN/TAZO/PMX 3.375GM 50 ML IV SCH ×2 (17:16→22:57)
[2020-02-17] MEDS ORDERED: POTASSIUM CHLORIDE 30 MEQ in SODIUM CHLORIDE 0.9% 100 ML IV ONE (17:30)
[2020-02-17] MEDS ORDERED: MIDAZOLAM 1 MG/ML, 5ML ONE (17:35)
[2020-02-17] MEDS: KSCALE TO 4.5 IV SCH ×2 (17:40→22:19)
[2020-02-17] MEDS ORDERED: LIDOCAINE 1%, 20ML ONE (18:02)
[2020-02-17 21:41] LABS: ANION GAP 11 mmol/L (5-15); CALCIUM 7.1 mg/dL (8.5-10.1); CHLORIDE 103 mmol/L (98-107)
[2020-02-17] MEDS ORDERED: POTASSIUM CHLORIDE 40 MEQ in SODIUM CHLORIDE 0.9% 100 ML IV ONE (22:30)
[2020-02-18] MEDS: D5%-0.45NACL+KCL 20MEQ 1,000 ML IV SCH (00:35)
[2020-02-18] MEDS: REGULAR INSULIN 100 UNITS in SODIUM CHLORIDE 0.9% 99 ML IV PRN (00:37)
[2020-02-18] MEDS: LINEZOLID PMX 600MG/300ML 300 ML IV SCH ×2 (02:07→13:50)
[2020-02-18] MEDS: PHENYLEPHRINE 50 MG in SODIUM CHLORIDE 0.9% 245 ML IV PRN ×2 (02:09→13:50)
[2020-02-18 04:20] LABS: MEAN CORPUSCULAR HEMOGLOBIN 28.2 pg (27.0-34.8); MEAN CORPUSCULAR HGB CONC 32.9 g/dL (32.4-35.8); MEAN CORPUSCULAR VOLUME 85.6 fL (80-100); MEAN PLATELET VOLUME 9.1 fL (7.4-10.4); PLATELET COUNT 358 x10^3/uL (130-400); RED BLOOD COUNT 3.31 x10^6/uL (3.82-5.3); RED CELL DISTRIBUTION WIDTH 16.1 % (9.6-15.2)
[2020-02-18 04:30] LABS: ANION GAP 9 mmol/L (5-15); CALCIUM 7.2 mg/dL (8.5-10.1); CHLORIDE 105 mmol/L (98-107); CREATININE 1.35 mg/dL (0.55-1.02)
[2020-02-18] MEDS: KSCALE TO 4.5 IV SCH (04:56)
[2020-02-18] MEDS: PIPERACILLIN/TAZO/PMX 3.375GM 50 ML IV SCH ×4 (04:59→23:14)
[2020-02-18] MEDS ORDERED: POTASSIUM CHLORIDE 40 MEQ in SODIUM CHLORIDE 0.9% 100 ML IV ONE (05:00)
[2020-02-18 05:41] LABS: MD YES
[2020-02-18 05:43] LABS: BANDS%(MANUAL) 15 % (0-7); LYMPHS% (MANUAL) 6 % (22-44); METAMYELOCYTES% (MANUAL) 4 % (0-1); MONOS% (MANUAL) 7 % (2-9); MYELOCYTES% (MANUAL) 1 % (0-0); SEGS% (MANUAL) 67 % (42-75)
[2020-02-18 05:44] LABS: ANISOCYTOSIS 1+; PMNS WITH VACUOLES 1+; POLYCHROMASIA 1+; TOXIC GRAN 1+
[2020-02-18 05:45] LABS: <PLATELET ESTIMATE> ADEQUATE; <PLT MORPHOLOGY> NORMAL PLT MORPH
[2020-02-18] MEDS: INSULIN GLARGINE 100 UNITS/ML, PEN SQ-INSULIN SCH ×2 (08:23→20:38)
[2020-02-18] MEDS: POTASSIUM CHLORIDE 20 MEQ TAB.ER.PRT PO SCH ×2 (08:23→17:18)
[2020-02-18] MEDS: ENOXAPARIN 30 MG/0.3 ML SQ SCH (09:58)
[2020-02-18] MEDS: INSULIN LISPRO 100 UNITS/ML, PEN SQ-INSULIN SCH ×3 (10:42→20:38)
[2020-02-18] MEDS ORDERED: FAMOTIDINE 20 MG TABLET PO SCH (21:00)
[2020-02-19] MEDS: LINEZOLID PMX 600MG/300ML 300 ML IV SCH (01:11)
[2020-02-19 04:00] LABS: MEAN CORPUSCULAR HEMOGLOBIN 27.8 pg (27.0-34.8); MEAN CORPUSCULAR HGB CONC 32.8 g/dL (32.4-35.8); MEAN CORPUSCULAR VOLUME 84.7 fL (80-100); MEAN PLATELET VOLUME 8.8 fL (7.4-10.4); PLATELET COUNT 321 x10^3/uL (130-400); RED BLOOD COUNT 3.19 x10^6/uL (3.82-5.3); RED CELL DISTRIBUTION WIDTH 16.4 % (9.6-15.2)
[2020-02-19 04:11] LABS: ALANINE AMINOTRANSFERASE 6 U/L (12-78); ALBUMIN 1.2 g/dL (3.4-5.0); ANION GAP 9 mmol/L (5-15); CHLORIDE 104 mmol/L (98-107); CREATININE 0.86 mg/dL (0.55-1.02)
[2020-02-19 04:13] LABS: ALKALINE PHOSPHATASE 211 U/L (45-117); BILIRUBIN,TOTAL 0.4 mg/dL (0.2-1.0); TOTAL PROTEIN 5.1 g/dL (6.4-8.2)
[2020-02-19 04:17] LABS: MD YES
[2020-02-19 04:21] LABS: ANISOCYTOSIS 1+; BAND#(MANUAL) 2.18 x10^3/uL; BANDS%(MANUAL) 13 % (0-7); LYMPHS% (MANUAL) 3 % (22-44); MONOS% (MANUAL) 3 % (2-9); POLYCHROMASIA 1+; SEG#(MANUAL) 13.61 x10^3/uL (1.8-6.8); SEGS% (MANUAL) 81 % (42-75)
[2020-02-19 04:23] LABS: <PLATELET ESTIMATE> ADEQUATE; <PLT MORPHOLOGY> NORMAL PLT MORPH
[2020-02-19] MEDS: PIPERACILLIN/TAZO/PMX 3.375GM 50 ML IV SCH ×4 (04:29→22:52)
[2020-02-19] MEDS: INSULIN LISPRO 100 UNITS/ML, PEN SQ-INSULIN SCH ×4 (06:29→21:04)
[2020-02-19] MEDS ORDERED: MAGNESIUM SULFATE PMX 2GM/50ML 50 ML IV ONE (07:00)
[2020-02-19] MEDS: ENOXAPARIN 30 MG/0.3 ML SQ SCH (08:32)
[2020-02-19] MEDS: INSULIN GLARGINE 100 UNITS/ML, PEN SQ-INSULIN SCH ×2 (08:39→21:04)
[2020-02-19 13:03] VITALS: BP 110/53
[2020-02-19] MEDS: OXYcodone IR 5MG TABLET PO PRN (17:54)
[2020-02-19 18:49] VITALS: BP 114/60
[2020-02-19] MEDS: FAMOTIDINE 20 MG TABLET PO SCH (20:39)
[2020-02-20 02:19] VITALS: BP 104/68
[2020-02-20] MEDS: OXYcodone IR 5MG TABLET PO PRN ×3 (04:40→20:41)
[2020-02-20] MEDS: PIPERACILLIN/TAZO/PMX 3.375GM 50 ML IV SCH ×4 (04:42→22:40)
[2020-02-20 07:07] VITALS: BP 104/64
[2020-02-20] MEDS: FAMOTIDINE 20 MG TABLET PO SCH ×2 (08:14→20:19)
[2020-02-20] MEDS: ENOXAPARIN 40 MG/0.4 ML SQ SCH (08:14)
[2020-02-20] MEDS: INSULIN LISPRO 100 UNITS/ML, PEN SQ-INSULIN SCH ×4 (08:15→20:42)
[2020-02-20] MEDS: INSULIN GLARGINE 100 UNITS/ML, PEN SQ-INSULIN SCH ×2 (08:16→20:42)
[2020-02-20] MEDS: D5%-0.45NACL+KCL 20MEQ 1,000 ML IV SCH (09:02)
[2020-02-20] MEDS ORDERED: CHLORHEXIDINE 15 ML UDC MM STA (13:22)
[2020-02-20] MEDS ORDERED: MIDAZOLAM 1 MG/ML, 2ML ONE (13:34)
[2020-02-20] MEDS ORDERED: FENTANYL PF 100 MCG/2ML ONE ×2 (13:34→14:37)
[2020-02-20] MEDS ORDERED: MEPERIDINE/PF 25MG/ML,1ML IVPush PRN (14:00)
[2020-02-20] MEDS ORDERED: OXYcodone 5 MG/5 ML ORAL.SOL UDC PO PRN (14:00)
[2020-02-20] MEDS ORDERED: LABETALOL 5MG/ML, 20ML IV PRN (14:00)
[2020-02-20] MEDS ORDERED: hydrALAzine 20 MG/ML, 1ML IV PRN (14:00)
[2020-02-20] MEDS ORDERED: FENTANYL PF 100 MCG/2ML IV PRN (14:00)
[2020-02-20] MEDS ORDERED: HYDROmorphone 2 MG/ML, 1ML IVPush PRN (14:00)
[2020-02-20] MEDS ORDERED: ONDANSETRON 2MG/ML, 2ML IV PRN (14:00)
[2020-02-20] MEDS ORDERED: PROMETHAZINE 25 MG/ML, 1ML IV PRN (14:00)
[2020-02-20] MEDS ORDERED: ROCURONIUM 10 MG/ML,10ML ONE (14:02)
[2020-02-20] MEDS ORDERED: DEXAMETHASONE 4 MG/ML, 1ML ONE (14:10)
[2020-02-20] MEDS ORDERED: PROPOFOL 10 MG/ML, 20ML ONE (14:11)
[2020-02-20] MEDS ORDERED: SUCCINYLCHOLINE 20 MG/ML, 10ML ONE (14:11)
[2020-02-20] MEDS ORDERED: ONDANSETRON 2MG/ML, 2ML ONE ×2 (14:37→14:38)
[2020-02-20 19:02] VITALS: BP 109/63
[2020-02-20 23:10] VITALS: BP 110/72
[2020-02-21] MEDS: D5%-0.45NACL+KCL 20MEQ 1,000 ML IV SCH ×2 (02:52→17:00)
[2020-02-21] MEDS: PIPERACILLIN/TAZO/PMX 3.375GM 50 ML IV SCH ×4 (04:41→22:46)
[2020-02-21 04:44] VITALS: BP 103/65
[2020-02-21] MEDS: OXYcodone IR 5MG TABLET PO PRN ×3 (06:35→20:43)
[2020-02-21 06:50] VITALS: BP 132/84
[2020-02-21] MEDS: FAMOTIDINE 20 MG TABLET PO SCH ×2 (07:56→20:42)
[2020-02-21] MEDS: ENOXAPARIN 40 MG/0.4 ML SQ SCH (07:56)
[2020-02-21] MEDS: INSULIN GLARGINE 100 UNITS/ML, PEN SQ-INSULIN SCH ×2 (07:57→20:42)
[2020-02-21] MEDS: INSULIN LISPRO 100 UNITS/ML, PEN SQ-INSULIN SCH ×4 (07:57→20:43)
[2020-02-21 10:59] LABS: MEAN CORPUSCULAR HEMOGLOBIN 28.5 pg (27.0-34.8); MEAN CORPUSCULAR VOLUME 86.2 fL (80-100); MEAN PLATELET VOLUME 8.4 fL (7.4-10.4); PLATELET COUNT 239 x10^3/uL (130-400); RED BLOOD COUNT 3.23 x10^6/uL (3.82-5.3); RED CELL DISTRIBUTION WIDTH 17.2 % (9.6-15.2)
[2020-02-21 11:04] LABS: ALBUMIN 1.4 g/dL (3.4-5.0); ANION GAP 6 mmol/L (5-15); CALCIUM 7.7 mg/dL (8.5-10.1); CHLORIDE 101 mmol/L (98-107); CREATININE 0.73 mg/dL (0.55-1.02)
[2020-02-21 11:28] LABS: MD YES
[2020-02-21 11:31] LABS: ANISOCYTOSIS 1+; BAND#(MANUAL) 0.83 x10^3/uL; BANDS%(MANUAL) 6 % (0-7); LYMPH#(MANUAL) 2.21 x10^3/uL (1-3.4); LYMPHS% (MANUAL) 16 % (22-44); METAMYELOCYTES# (MANUAL) 0.28 x10^3/uL (0-0); METAMYELOCYTES% (MANUAL) 2 % (0-1); MONOS#(MANUAL) 0.69 x10^3/uL (0.3-2.7); MONOS% (MANUAL) 5 % (2-9); REACTIVE LYMPHS # (MANUAL) 0.14 x10^3/uL (0-0); REACTIVE LYMPHS % (MANUAL) 1 % (0-0); SEG#(MANUAL) 9.66 x10^3/uL (1.8-6.8); SEGS% (MANUAL) 70 % (42-75)
[2020-02-21 11:33] LABS: <PLATELET ESTIMATE> ADEQUATE; <PLT MORPHOLOGY> NORMAL PLT MORPH; POLYCHROMASIA 1+
[2020-02-21] MEDS: MICAFUNGIN 100 MG in SODIUM CHLORIDE 0.9% 100 ML IV SCH (12:25)
[2020-02-21 14:00] VITALS: BP 112/73
[2020-02-21 18:27] VITALS: BP 165/88
[2020-02-21 18:33] VITALS: BP 109/61
[2020-02-22 01:11] VITALS: BP 113/80
[2020-02-22] MEDS: OXYcodone IR 5MG TABLET PO PRN ×5 (04:29→22:03)
[2020-02-22 04:50] LABS: BASOPHILS # (AUTO) 0.06 x10^3/uL (0-0.1); BASOPHILS % (AUTO) 0 % (0-1); EOSINOPHILS # (AUTO) 0.17 x10^3/uL (0-0.4); EOSINOPHILS % (AUTO) 1 % (1-7); LYMPHOCYTES # (AUTO) 2.01 x10^3/uL (1-3.4); LYMPHOCYTES % (AUTO) 14 % (22-44); MD NO; MEAN CORPUSCULAR HEMOGLOBIN 28.4 pg (27.0-34.8); MEAN CORPUSCULAR HGB CONC 33.6 g/dL (32.4-35.8); MEAN CORPUSCULAR VOLUME 84.6 fL (80-100); MEAN PLATELET VOLUME 7.9 fL (7.4-10.4); MONOCYTES # (AUTO) 1.01 x10^3/uL (0.2-0.8); MONOCYTES % (AUTO) 7 % (2-9); NEUTROPHILS # (AUTO) 11.46 x10^3/uL (1.8-6.8); NEUTROPHILS % (AUTO) 78 % (42-75); PLATELET COUNT 224 x10^3/uL (130-400); RED BLOOD COUNT 3.11 x10^6/uL (3.82-5.3); RED CELL DISTRIBUTION WIDTH 16.7 % (9.6-15.2)
[2020-02-22] MEDS: PIPERACILLIN/TAZO/PMX 3.375GM 50 ML IV SCH ×3 (04:53→17:50)
[2020-02-22 05:03] LABS: ALBUMIN 1.4 g/dL (3.4-5.0); ANION GAP 6 mmol/L (5-15); CALCIUM 7.7 mg/dL (8.5-10.1); CHLORIDE 102 mmol/L (98-107)
[2020-02-22 05:06] LABS: CREATININE 0.55 mg/dL (0.55-1.02)
[2020-02-22] MEDS: D5%-0.45NACL+KCL 20MEQ 1,000 ML IV SCH (06:46)
[2020-02-22 06:49] VITALS: BP 119/73
[2020-02-22] MEDS ORDERED: MAGNESIUM SULFATE PMX 4GM/100M 100 ML IV ONE (07:00)
[2020-02-22] MEDS: INSULIN GLARGINE 100 UNITS/ML, PEN SQ-INSULIN SCH ×2 (07:57→21:43)
[2020-02-22] MEDS: FAMOTIDINE 20 MG TABLET PO SCH ×2 (07:57→21:42)
[2020-02-22] MEDS: ENOXAPARIN 40 MG/0.4 ML SQ SCH (07:57)
[2020-02-22] MEDS: INSULIN LISPRO 100 UNITS/ML, PEN SQ-INSULIN SCH ×4 (07:58→21:44)
[2020-02-22 12:13] VITALS: BP 109/70
[2020-02-22] MEDS: MICAFUNGIN 100 MG in SODIUM CHLORIDE 0.9% 100 ML IV SCH (13:38)
[2020-02-22 18:37] VITALS: BP 122/77
[2020-02-23] MEDS: PIPERACILLIN/TAZO/PMX 3.375GM 50 ML IV SCH ×5 (00:07→23:33)
[2020-02-23 01:09] VITALS: BP 111/69
[2020-02-23] MEDS: ACETAMINOPHEN 325 MG TABLET PO PRN ×2 (01:58→20:56)
[2020-02-23] MEDS: OXYcodone IR 5MG TABLET PO PRN ×5 (01:58→20:57)
[2020-02-23] MEDS: D5%-0.45NACL+KCL 20MEQ 1,000 ML IV SCH ×2 (03:11→21:54)
[2020-02-23 06:50] VITALS: BP 111/70
[2020-02-23 06:51] LABS: ALBUMIN 1.4 g/dL (3.4-5.0); ANION GAP 5 mmol/L (5-15); CALCIUM 7.9 mg/dL (8.5-10.1); CHLORIDE 102 mmol/L (98-107); CREATININE 0.51 mg/dL (0.55-1.02)
[2020-02-23] MEDS: INSULIN GLARGINE 100 UNITS/ML, PEN SQ-INSULIN SCH ×2 (08:06→22:00)
[2020-02-23] MEDS: FAMOTIDINE 20 MG TABLET PO SCH ×2 (08:06→20:56)
[2020-02-23] MEDS: INSULIN LISPRO 100 UNITS/ML, PEN SQ-INSULIN SCH ×4 (08:07→22:01)
[2020-02-23] MEDS: ENOXAPARIN 40 MG/0.4 ML SQ SCH (08:07)
[2020-02-23 08:17] LABS: MEAN CORPUSCULAR HEMOGLOBIN 28.1 pg (27.0-34.8); MEAN CORPUSCULAR HGB CONC 32.5 g/dL (32.4-35.8); MEAN CORPUSCULAR VOLUME 86.5 fL (80-100); MEAN PLATELET VOLUME 7.7 fL (7.4-10.4); PLATELET COUNT 233 x10^3/uL (130-400); RED BLOOD COUNT 3.44 x10^6/uL (3.82-5.3); RED CELL DISTRIBUTION WIDTH 16.2 % (9.6-15.2)
[2020-02-23 08:54] LABS: BASOPHILS # (AUTO) 0.06 x10^3/uL (0-0.1); BASOPHILS % (AUTO) 0 % (0-1); EOSINOPHILS # (AUTO) 0.05 x10^3/uL (0-0.4); EOSINOPHILS % (AUTO) 0 % (1-7); LYMPHOCYTES # (AUTO) 2.27 x10^3/uL (1-3.4); LYMPHOCYTES % (AUTO) 15 % (22-44); MD SCAN; MONOCYTES # (AUTO) 0.89 x10^3/uL (0.2-0.8); MONOCYTES % (AUTO) 6 % (2-9); NEUTROPHILS % (AUTO) 79 % (42-75)
[2020-02-23] MEDS ORDERED: MAGNESIUM HYDROXIDE 8%, 30ML UDC PO SCH (09:30)
[2020-02-23] MEDS ORDERED: MAGNESIUM SULFATE PMX 2GM/50ML 50 ML IV ONE (10:00)
[2020-02-23] MEDS: MAGNESIUM HYDROXIDE 8%, 30ML UDC PO SCH ×2 (11:58→20:56)
[2020-02-23 13:14] VITALS: BP 114/65
[2020-02-23] MEDS: MICAFUNGIN 100 MG in SODIUM CHLORIDE 0.9% 100 ML IV SCH (13:29)
[2020-02-23 20:30] VITALS: BP 118/70
[2020-02-23] MEDS: CALCIUM CARBONATE 500 MG TAB.CHEW PO PRN (23:33)
[2020-02-24] MEDS: OXYcodone IR 5MG TABLET PO PRN ×5 (00:51→22:14)
[2020-02-24] MEDS: ACETAMINOPHEN 325 MG TABLET PO PRN ×3 (00:51→22:13)
[2020-02-24 00:55] VITALS: BP 101/66
[2020-02-24] MEDS: PIPERACILLIN/TAZO/PMX 3.375GM 50 ML IV SCH ×3 (06:21→18:17)
[2020-02-24 06:36] LABS: MEAN CORPUSCULAR HEMOGLOBIN 28.5 pg (27.0-34.8); MEAN CORPUSCULAR HGB CONC 32.8 g/dL (32.4-35.8); MEAN CORPUSCULAR VOLUME 86.7 fL (80-100); MEAN PLATELET VOLUME 7.9 fL (7.4-10.4); PLATELET COUNT 233 x10^3/uL (130-400); RED BLOOD COUNT 3.17 x10^6/uL (3.82-5.3); RED CELL DISTRIBUTION WIDTH 17.2 % (9.6-15.2)
[2020-02-24 06:48] LABS: ALBUMIN 1.5 g/dL (3.4-5.0); ANION GAP 6 mmol/L (5-15); CALCIUM 8.3 mg/dL (8.5-10.1); CHLORIDE 102 mmol/L (98-107); CREATININE 0.61 mg/dL (0.55-1.02)
[2020-02-24 06:51] LABS: MD YES
[2020-02-24 06:54] LABS: BAND#(MANUAL) 1.22 x10^3/uL; BANDS%(MANUAL) 9 % (0-7); EOS#(MANUAL) 0.14 x10^3/uL (0.0-0.4); EOS% (MANUAL) 1 % (1-7); LYMPH#(MANUAL) 2.57 x10^3/uL (1-3.4); LYMPHS% (MANUAL) 19 % (22-44); MONOS#(MANUAL) 1.22 x10^3/uL (0.3-2.7); MONOS% (MANUAL) 9 % (2-9); SEG#(MANUAL) 8.37 x10^3/uL (1.8-6.8); SEGS% (MANUAL) 62 % (42-75)
[2020-02-24 06:55] LABS: ANISOCYTOSIS 1+; POLYCHROMASIA 1+
[2020-02-24 06:56] LABS: <PLATELET ESTIMATE> ADEQUATE; <PLT MORPHOLOGY> NORMAL PLT MORPH
[2020-02-24] MEDS: INSULIN LISPRO 100 UNITS/ML, PEN SQ-INSULIN SCH ×4 (07:34→20:37)
[2020-02-24] MEDS ORDERED: MAGNESIUM SULFATE PMX 4GM/100M 100 ML IV ONE (08:00)
[2020-02-24] MEDS: FAMOTIDINE 20 MG TABLET PO SCH ×2 (08:16→20:45)
[2020-02-24] MEDS: LACTOBACILLUS CHEW TABLET PO SCH ×3 (08:16→20:45)
[2020-02-24] MEDS: ENOXAPARIN 40 MG/0.4 ML SQ SCH (08:16)
[2020-02-24] MEDS: SODIUM CHLORIDE 0.9% 1,000 ML IV SCH (08:17)
[2020-02-24] MEDS: INSULIN GLARGINE 100 UNITS/ML, PEN SQ-INSULIN SCH ×2 (08:17→20:47)
[2020-02-24] MEDS: MAGNESIUM HYDROXIDE 8%, 30ML UDC PO SCH ×2 (08:17→20:43)
[2020-02-24 08:24] VITALS: BP 111/65
[2020-02-24 11:25] LABS: HCT (SEDRATE) 27.5 % (34.6-47.8)
[2020-02-24 13:35] VITALS: BP 114/72
[2020-02-24] MEDS: MICAFUNGIN 100 MG in SODIUM CHLORIDE 0.9% 100 ML IV SCH (13:58)
[2020-02-24 19:32] VITALS: BP 109/68
[2020-02-25] MEDS: PIPERACILLIN/TAZO/PMX 3.375GM 50 ML IV SCH ×4 (00:10→17:43)
[2020-02-25] MEDS: SODIUM CHLORIDE 0.9% 1,000 ML IV SCH ×2 (00:10→21:25)
[2020-02-25] MEDS: morphine SULFATE 10 MG/ML, 1ML IVPush PRN ×4 (03:00→08:15)
[2020-02-25 03:03] VITALS: BP 115/72
[2020-02-25 04:45] LABS: INTERNATIONAL NORMALIZED RATIO 1.13 (0.93-1.1)
[2020-02-25 04:47] LABS: % IRON SATURATION 13 % (20-55); IRON LEVEL 15 mcg/dL (50-170); TOTAL IRON BINDING CAPACITY 116 mcg/dL (250-450)
[2020-02-25 06:36] VITALS: BP 130/81
[2020-02-25] MEDS: INSULIN LISPRO 100 UNITS/ML, PEN SQ-INSULIN SCH ×4 (07:00→21:00)
[2020-02-25] MEDS: ENOXAPARIN 40 MG/0.4 ML SQ SCH (08:14)
[2020-02-25] MEDS: FAMOTIDINE 20 MG TABLET PO SCH ×2 (08:39→21:24)
[2020-02-25] MEDS: MAGNESIUM HYDROXIDE 8%, 30ML UDC PO SCH ×2 (08:39→21:00)
[2020-02-25] MEDS: LACTOBACILLUS CHEW TABLET PO SCH ×3 (08:39→21:24)
[2020-02-25] MEDS ORDERED: NALOXONE 1 MG/ML, 2ML ONE (09:24)
[2020-02-25] MEDS ORDERED: FLUMAZENIL 0.1 MG/1 ML, 5ML ONE (09:24)
[2020-02-25] MEDS ORDERED: MIDAZOLAM 1 MG/ML, 5ML ONE ×2 (09:24)
[2020-02-25] MEDS ORDERED: FENTANYL PF 100 MCG/2ML ONE ×2 (09:24)
[2020-02-25] MEDS ORDERED: LIDOCAINE 1%, 20ML ONE (09:37)
[2020-02-25] MEDS: INSULIN GLARGINE 100 UNITS/ML, PEN SQ-INSULIN SCH ×2 (11:54→21:25)
[2020-02-25 12:45] VITALS: BP 117/76
[2020-02-25] MEDS: OXYcodone IR 5MG TABLET PO PRN ×2 (13:05→21:25)
[2020-02-25] MEDS: MICAFUNGIN 100 MG in SODIUM CHLORIDE 0.9% 100 ML IV SCH (13:05)
[2020-02-25 20:24] VITALS: BP 135/85
[2020-02-25] MEDS: ONDANSETRON 2MG/ML, 2ML IV PRN (21:24)
[2020-02-25 23:45] VITALS: BP 120/70
[2020-02-26] MEDS: PIPERACILLIN/TAZO/PMX 3.375GM 50 ML IV SCH ×4 (00:16→18:38)
[2020-02-26] MEDS: OXYcodone IR 5MG TABLET PO PRN ×4 (03:20→20:55)
[2020-02-26] MEDS: ACETAMINOPHEN 325 MG TABLET PO PRN (03:20)
[2020-02-26 03:43] VITALS: BP 137/80
[2020-02-26 06:34] LABS: MEAN CORPUSCULAR HEMOGLOBIN 28.2 pg (27.0-34.8); MEAN CORPUSCULAR HGB CONC 32.8 g/dL (32.4-35.8); MEAN CORPUSCULAR VOLUME 86.1 fL (80-100); MEAN PLATELET VOLUME 7.7 fL (7.4-10.4); PLATELET COUNT 393 x10^3/uL (130-400); RED BLOOD COUNT 3.07 x10^6/uL (3.82-5.3); RED CELL DISTRIBUTION WIDTH 17.5 % (9.6-15.2)
[2020-02-26 06:44] LABS: ANION GAP 7 mmol/L (5-15); CALCIUM 8.1 mg/dL (8.5-10.1); CHLORIDE 102 mmol/L (98-107); CREATININE 0.55 mg/dL (0.55-1.02)
[2020-02-26 06:51] LABS: MD YES
[2020-02-26 06:54] LABS: BAND#(MANUAL) 0.71 x10^3/uL; BANDS%(MANUAL) 6 % (0-7); BASOS#(MANUAL) 0.12 x10^3/uL (0-0.1); BASOS% (MANUAL) 1 % (0-1); LYMPH#(MANUAL) 1.06 x10^3/uL (1-3.4); LYMPHS% (MANUAL) 9 % (22-44); MONOS% (MANUAL) 11 % (2-9); SEG#(MANUAL) 8.61 x10^3/uL (1.8-6.8); SEGS% (MANUAL) 73 % (42-75)
[2020-02-26 06:56] LABS: <PLATELET ESTIMATE> ADEQUATE; <PLT MORPHOLOGY> NORMAL PLT MORPH; ANISOCYTOSIS 1+; HYPOCHROMIA 1+
[2020-02-26] MEDS: INSULIN LISPRO 100 UNITS/ML, PEN SQ-INSULIN SCH ×4 (07:00→21:00)
[2020-02-26 07:05] VITALS: BP 136/87
[2020-02-26] MEDS ORDERED: MAGNESIUM HYDROXIDE 8%, 30ML UDC PO PRN (07:30)
[2020-02-26] MEDS ORDERED: MAGNESIUM SULFATE PMX 4GM/100M 100 ML IV ONE (07:30)
[2020-02-26] MEDS ORDERED: morphine SULFATE 10 MG/ML, 1ML IVPush PRN (09:00)
[2020-02-26] MEDS: LACTOBACILLUS CHEW TABLET PO SCH ×3 (09:09→20:54)
[2020-02-26] MEDS: ENOXAPARIN 40 MG/0.4 ML SQ SCH (09:09)
[2020-02-26] MEDS: FAMOTIDINE 20 MG TABLET PO SCH ×2 (09:09→20:55)
[2020-02-26] MEDS: INSULIN GLARGINE 100 UNITS/ML, PEN SQ-INSULIN SCH ×2 (09:10→21:06)
[2020-02-26] MEDS: MICAFUNGIN 100 MG in SODIUM CHLORIDE 0.9% 100 ML IV SCH (14:13)
[2020-02-26 14:45] VITALS: BP 127/72
[2020-02-26 21:00] VITALS: BP 132/76
[2020-02-27] MEDS: PIPERACILLIN/TAZO/PMX 3.375GM 50 ML IV SCH ×4 (00:06→18:21)
[2020-02-27] MEDS: ACETAMINOPHEN 325 MG TABLET PO PRN ×2 (01:13→10:50)
[2020-02-27] MEDS: OXYcodone IR 5MG TABLET PO PRN ×5 (01:13→21:15)
[2020-02-27] MEDS: SODIUM CHLORIDE 0.9% 1,000 ML IV SCH ×2 (01:23→21:16)
[2020-02-27 02:28] VITALS: BP 142/84
[2020-02-27 04:52] LABS: MEAN CORPUSCULAR HEMOGLOBIN 28.2 pg (27.0-34.8); MEAN CORPUSCULAR HGB CONC 32.6 g/dL (32.4-35.8); MEAN CORPUSCULAR VOLUME 86.4 fL (80-100); MEAN PLATELET VOLUME 7.7 fL (7.4-10.4); PLATELET COUNT 426 x10^3/uL (130-400); RED BLOOD COUNT 3.05 x10^6/uL (3.82-5.3); RED CELL DISTRIBUTION WIDTH 17.7 % (9.6-15.2)
[2020-02-27 05:05] LABS: ANION GAP 6 mmol/L (5-15); CALCIUM 8.2 mg/dL (8.5-10.1); CHLORIDE 103 mmol/L (98-107)
[2020-02-27 05:08] LABS: CREATININE 0.51 mg/dL (0.55-1.02)
[2020-02-27 05:56] LABS: BASOPHILS # (AUTO) 0.05 x10^3/uL (0-0.1); BASOPHILS % (AUTO) 1 % (0-1); EOSINOPHILS # (AUTO) 0.06 x10^3/uL (0-0.4); EOSINOPHILS % (AUTO) 1 % (1-7); LYMPHOCYTES # (AUTO) 1.65 x10^3/uL (1-3.4); LYMPHOCYTES % (AUTO) 17 % (22-44); MD SCAN; MONOCYTES # (AUTO) 1.29 x10^3/uL (0.2-0.8); MONOCYTES % (AUTO) 13 % (2-9); NEUTROPHILS # (AUTO) 6.89 x10^3/uL (1.8-6.8); NEUTROPHILS % (AUTO) 69 % (42-75)
[2020-02-27 07:10] VITALS: BP 126/72
[2020-02-27] MEDS: INSULIN LISPRO 100 UNITS/ML, PEN SQ-INSULIN SCH ×4 (08:13→21:00)
[2020-02-27] MEDS: ENOXAPARIN 40 MG/0.4 ML SQ SCH (08:13)
[2020-02-27] MEDS: LACTOBACILLUS CHEW TABLET PO SCH ×3 (08:14→21:15)
[2020-02-27] MEDS: FAMOTIDINE 20 MG TABLET PO SCH ×2 (08:14→21:15)
[2020-02-27] MEDS: INSULIN GLARGINE 100 UNITS/ML, PEN SQ-INSULIN SCH ×2 (08:14→21:37)
[2020-02-27] MEDS: MICAFUNGIN 100 MG in SODIUM CHLORIDE 0.9% 100 ML IV SCH (13:28)
[2020-02-27 14:00] VITALS: BP 130/72
[2020-02-27 19:13] VITALS: BP 131/71
[2020-02-27] MEDS: DIPHENHYDRAMINE 50 MG CAPSULE PO PRN (23:24)
[2020-02-28] MEDS: PIPERACILLIN/TAZO/PMX 3.375GM 50 ML IV SCH ×4 (00:32→18:24)
[2020-02-28 00:51] VITALS: BP 139/79
[2020-02-28] MEDS: OXYcodone IR 5MG TABLET PO PRN ×4 (03:45→22:29)
[2020-02-28] MEDS: INSULIN LISPRO 100 UNITS/ML, PEN SQ-INSULIN SCH ×4 (06:37→21:00)
[2020-02-28 08:37] VITALS: BP 138/82
[2020-02-28] MEDS: FAMOTIDINE 20 MG TABLET PO SCH ×2 (08:51→21:12)
[2020-02-28] MEDS: LACTOBACILLUS CHEW TABLET PO SCH ×3 (08:51→21:11)
[2020-02-28] MEDS: INSULIN GLARGINE 100 UNITS/ML, PEN SQ-INSULIN SCH ×2 (08:52→21:12)
[2020-02-28] MEDS: ENOXAPARIN 40 MG/0.4 ML SQ SCH (08:52)
[2020-02-28] MEDS: CARVEDILOL 3.125 MG TABLET PO SCH ×2 (08:56→17:51)
[2020-02-28] MEDS: MICAFUNGIN 100 MG in SODIUM CHLORIDE 0.9% 100 ML IV SCH (13:31)
[2020-02-28] MEDS: SODIUM CHLORIDE 0.9% 1,000 ML IV SCH (13:31)
[2020-02-28 14:48] VITALS: BP 140/85
[2020-02-28 19:22] VITALS: BP 135/80
[2020-02-29] MEDS: PIPERACILLIN/TAZO/PMX 3.375GM 50 ML IV SCH ×4 (00:08→18:07)
[2020-02-29 01:30] VITALS: BP 122/75
[2020-02-29] MEDS: OXYcodone IR 5MG TABLET PO PRN ×5 (03:00→20:28)
[2020-02-29] MEDS: CARVEDILOL 3.125 MG TABLET PO SCH ×2 (06:02→18:11)
[2020-02-29] MEDS: INSULIN LISPRO 100 UNITS/ML, PEN SQ-INSULIN SCH ×4 (07:25→20:53)
[2020-02-29] MEDS: ENOXAPARIN 40 MG/0.4 ML SQ SCH (08:13)
[2020-02-29] MEDS: LACTOBACILLUS CHEW TABLET PO SCH ×3 (08:13→20:27)
[2020-02-29] MEDS: FAMOTIDINE 20 MG TABLET PO SCH ×2 (08:13→20:28)
[2020-02-29] MEDS: INSULIN GLARGINE 100 UNITS/ML, PEN SQ-INSULIN SCH ×2 (08:15→20:54)
[2020-02-29 08:20] VITALS: BP 125/78
[2020-02-29] MEDS: SODIUM CHLORIDE 0.9% 1,000 ML IV SCH (11:41)
[2020-02-29] MEDS: MICAFUNGIN 100 MG in SODIUM CHLORIDE 0.9% 100 ML IV SCH (13:10)
[2020-02-29 14:50] VITALS: BP 136/80
[2020-02-29 20:20] VITALS: BP 145/72
[2020-02-29 20:57] VITALS: BP 130/75
[2020-03-01] MEDS: PIPERACILLIN/TAZO/PMX 3.375GM 50 ML IV SCH ×5 (00:06→23:45)
[2020-03-01] MEDS: OXYcodone IR 5MG TABLET PO PRN ×6 (00:23→22:05)
[2020-03-01 02:08] VITALS: BP 130/75
[2020-03-01] MEDS: SODIUM CHLORIDE 0.9% 1,000 ML IV SCH ×3 (04:31→23:45)
[2020-03-01 05:28] LABS: HCT (SEDRATE) 24.1 % (34.6-47.8)
[2020-03-01 05:30] LABS: ANION GAP 6 mmol/L (5-15); CALCIUM 8.1 mg/dL (8.5-10.1); CHLORIDE 102 mmol/L (98-107)
[2020-03-01 05:38] LABS: BASOPHILS % (AUTO) 1 % (0-1); CREATININE 0.41 mg/dL (0.55-1.02); EOSINOPHILS # (AUTO) 0.06 x10^3/uL (0-0.4); EOSINOPHILS % (AUTO) 1 % (1-7); LYMPHOCYTES # (AUTO) 1.67 x10^3/uL (1-3.4); LYMPHOCYTES % (AUTO) 22 % (22-44); MD NO; MEAN CORPUSCULAR HEMOGLOBIN 28.1 pg (27.0-34.8); MEAN CORPUSCULAR HGB CONC 32.7 g/dL (32.4-35.8); MEAN CORPUSCULAR VOLUME 86.1 fL (80-100); MEAN PLATELET VOLUME 7.1 fL (7.4-10.4); MONOCYTES # (AUTO) 1.28 x10^3/uL (0.2-0.8); MONOCYTES % (AUTO) 17 % (2-9); NEUTROPHILS # (AUTO) 4.33 x10^3/uL (1.8-6.8); NEUTROPHILS % (AUTO) 58 % (42-75); PLATELET COUNT 501 x10^3/uL (130-400); RED BLOOD COUNT 2.81 x10^6/uL (3.82-5.3); RED CELL DISTRIBUTION WIDTH 18.1 % (9.6-15.2)
[2020-03-01] MEDS: CARVEDILOL 3.125 MG TABLET PO SCH ×2 (05:52→17:46)
[2020-03-01] MEDS: INSULIN LISPRO 100 UNITS/ML, PEN SQ-INSULIN SCH ×4 (06:30→21:00)
[2020-03-01 08:00] VITALS: BP 128/81
[2020-03-01] MEDS ORDERED: POTASSIUM CHLORIDE 20 MEQ TAB.ER.PRT PO ONE (08:00)
[2020-03-01] MEDS: INSULIN GLARGINE 100 UNITS/ML, PEN SQ-INSULIN SCH ×2 (08:44→21:00)
[2020-03-01] MEDS: LACTOBACILLUS CHEW TABLET PO SCH ×3 (08:45→22:05)
[2020-03-01] MEDS: FERROUS SULFATE 325 MG TABLET PO SCH (08:45)
[2020-03-01] MEDS: FAMOTIDINE 20 MG TABLET PO SCH ×2 (08:45→22:05)
[2020-03-01] MEDS: MICAFUNGIN 100 MG in SODIUM CHLORIDE 0.9% 100 ML IV SCH (13:05)
[2020-03-01] MEDS ORDERED: OMNIPAQUE 350 MG/ML, 100ML BOTTLE ONE (13:10)
[2020-03-01 14:00] VITALS: BP 154/93
[2020-03-01] MEDS: ENOXAPARIN 40 MG/0.4 ML SQ SCH (16:08)
[2020-03-01 18:44] VITALS: BP 122/66
[2020-03-02 01:14] VITALS: BP 147/84
[2020-03-02] MEDS: OXYcodone IR 5MG TABLET PO PRN ×4 (02:21→21:48)
[2020-03-02 02:51] LABS: BASOPHILS # (AUTO) 0.08 x10^3/uL (0-0.1); BASOPHILS % (AUTO) 1 % (0-1); EOSINOPHILS # (AUTO) 0.07 x10^3/uL (0-0.4); EOSINOPHILS % (AUTO) 1 % (1-7); LYMPHOCYTES # (AUTO) 1.75 x10^3/uL (1-3.4); LYMPHOCYTES % (AUTO) 22 % (22-44); MD NO; MEAN CORPUSCULAR HEMOGLOBIN 27.7 pg (27.0-34.8); MEAN CORPUSCULAR HGB CONC 32.5 g/dL (32.4-35.8); MEAN CORPUSCULAR VOLUME 85.1 fL (80-100); MEAN PLATELET VOLUME 7.3 fL (7.4-10.4); MONOCYTES # (AUTO) 1.29 x10^3/uL (0.2-0.8); MONOCYTES % (AUTO) 16 % (2-9); NEUTROPHILS # (AUTO) 4.78 x10^3/uL (1.8-6.8); NEUTROPHILS % (AUTO) 60 % (42-75); PLATELET COUNT 473 x10^3/uL (130-400); RED BLOOD COUNT 2.75 x10^6/uL (3.82-5.3); RED CELL DISTRIBUTION WIDTH 17.7 % (9.6-15.2)
[2020-03-02 03:01] LABS: ANION GAP 8 mmol/L (5-15); CALCIUM 7.9 mg/dL (8.5-10.1); CHLORIDE 103 mmol/L (98-107); CREATININE 0.38 mg/dL (0.55-1.02)
[2020-03-02] MEDS: INSULIN LISPRO 100 UNITS/ML, PEN SQ-INSULIN SCH ×4 (06:11→21:00)
[2020-03-02] MEDS: CARVEDILOL 3.125 MG TABLET PO SCH ×2 (06:12→17:04)
[2020-03-02] MEDS: PIPERACILLIN/TAZO/PMX 3.375GM 50 ML IV SCH ×4 (06:12→23:43)
[2020-03-02 07:55] VITALS: BP 125/73
[2020-03-02] MEDS ORDERED: MAGNESIUM SULFATE PMX 2GM/50ML 50 ML IV ONE (08:00)
[2020-03-02] MEDS: ACETAMINOPHEN 325 MG TABLET PO SCH ×3 (08:13→21:48)
[2020-03-02] MEDS: FAMOTIDINE 20 MG TABLET PO SCH ×2 (08:13→21:48)
[2020-03-02] MEDS: LACTOBACILLUS CHEW TABLET PO SCH ×3 (08:13→21:48)
[2020-03-02] MEDS ORDERED: FLUMAZENIL 0.1 MG/1 ML, 5ML ONE (10:05)
[2020-03-02] MEDS ORDERED: MIDAZOLAM 1 MG/ML, 5ML ONE (10:05)
[2020-03-02] MEDS ORDERED: FENTANYL PF 100 MCG/2ML ONE (10:05)
[2020-03-02] MEDS ORDERED: NALOXONE 1 MG/ML, 2ML ONE (10:05)
[2020-03-02] MEDS ORDERED: LIDOCAINE 1%, 10ML ONE ×2 (10:37→10:44)
[2020-03-02] MEDS ORDERED: OXYcodone 5 MG/5 ML ORAL.SOL UDC ONE (11:53)
[2020-03-02] MEDS: MICAFUNGIN 100 MG in SODIUM CHLORIDE 0.9% 100 ML IV SCH (13:42)
[2020-03-02] MEDS ORDERED: MORPHINE SULFATE 4 MG/ML, 1ML ONE (13:47)
[2020-03-02] MEDS: morphine SULFATE 10 MG/ML, 1ML IVPush PRN ×3 (13:50→23:50)
[2020-03-02 14:25] VITALS: BP 114/74
[2020-03-02] MEDS: ENOXAPARIN 40 MG/0.4 ML SQ SCH (15:56)
[2020-03-02] MEDS: SODIUM CHLORIDE 0.9% 1,000 ML IV SCH (19:07)
[2020-03-02 19:50] VITALS: BP 125/80
[2020-03-02] MEDS: INSULIN GLARGINE 100 UNITS/ML, PEN SQ-INSULIN SCH (21:49)
[2020-03-03 01:20] VITALS: BP 148/82
[2020-03-03] MEDS: OXYcodone IR 5MG TABLET PO PRN ×4 (02:09→19:17)
[2020-03-03 05:27] VITALS: BP 134/83
[2020-03-03] MEDS: PIPERACILLIN/TAZO/PMX 3.375GM 50 ML IV SCH ×5 (05:29→18:13)
[2020-03-03] MEDS: morphine SULFATE 10 MG/ML, 1ML IVPush PRN ×2 (05:29→09:01)
[2020-03-03] MEDS: ACETAMINOPHEN 325 MG TABLET PO SCH ×4 (05:29→21:11)
[2020-03-03] MEDS: CARVEDILOL 3.125 MG TABLET PO SCH ×2 (05:29→18:13)
[2020-03-03 06:35] LABS: ANION GAP 7 mmol/L (5-15); CALCIUM 7.8 mg/dL (8.5-10.1); CHLORIDE 104 mmol/L (98-107)
[2020-03-03 06:43] VITALS: BP 130/81
[2020-03-03 06:43] LABS: CREATININE 0.45 mg/dL (0.55-1.02)
[2020-03-03] MEDS: INSULIN LISPRO 100 UNITS/ML, PEN SQ-INSULIN SCH ×4 (07:00→21:00)
[2020-03-03 07:42] LABS: BASOPHILS # (AUTO) 0.05 x10^3/uL (0-0.1); BASOPHILS % (AUTO) 1 % (0-1); EOSINOPHILS # (AUTO) 0.07 x10^3/uL (0-0.4); EOSINOPHILS % (AUTO) 1 % (1-7); LYMPHOCYTES # (AUTO) 1.27 x10^3/uL (1-3.4); LYMPHOCYTES % (AUTO) 20 % (22-44); MD NO; MEAN CORPUSCULAR HEMOGLOBIN 27.7 pg (27.0-34.8); MEAN CORPUSCULAR HGB CONC 32.5 g/dL (32.4-35.8); MEAN CORPUSCULAR VOLUME 85.3 fL (80-100); MONOCYTES # (AUTO) 1.11 x10^3/uL (0.2-0.8); MONOCYTES % (AUTO) 17 % (2-9); NEUTROPHILS # (AUTO) 3.93 x10^3/uL (1.8-6.8); NEUTROPHILS % (AUTO) 61 % (42-75); PLATELET COUNT 445 x10^3/uL (130-400); RED BLOOD COUNT 2.84 x10^6/uL (3.82-5.3); RED CELL DISTRIBUTION WIDTH 18.4 % (9.6-15.2)
[2020-03-03 07:46] LABS: HCT (SEDRATE) 24.2 % (34.6-47.8)
[2020-03-03] MEDS: FERROUS SULFATE 325 MG TABLET PO SCH (08:52)
[2020-03-03] MEDS: FAMOTIDINE 20 MG TABLET PO SCH ×2 (08:52→21:11)
[2020-03-03] MEDS: LACTOBACILLUS CHEW TABLET PO SCH ×3 (08:53→21:12)
[2020-03-03] MEDS ORDERED: MORPHINE SULFATE 4 MG/ML, 1ML ONE (08:59)
[2020-03-03] MEDS: SODIUM CHLORIDE 0.9% 1,000 ML IV SCH (11:11)
[2020-03-03] MEDS ORDERED: MAGNESIUM SULFATE PMX 2GM/50ML 50 ML IV ONE (11:30)
[2020-03-03] MEDS: MICAFUNGIN 100 MG in SODIUM CHLORIDE 0.9% 100 ML IV SCH (12:37)
[2020-03-03 13:25] VITALS: BP 127/75
[2020-03-03] MEDS: ENOXAPARIN 40 MG/0.4 ML SQ SCH (16:07)
[2020-03-03 19:37] VITALS: BP 137/80
[2020-03-03] MEDS: INSULIN GLARGINE 100 UNITS/ML, PEN SQ-INSULIN SCH (21:13)
[2020-03-04] MEDS: PIPERACILLIN/TAZO/PMX 3.375GM 50 ML IV SCH ×5 (00:10→23:54)
[2020-03-04 00:40] VITALS: BP 132/81
[2020-03-04] MEDS: ACETAMINOPHEN 325 MG TABLET PO SCH ×4 (04:24→21:03)
[2020-03-04] MEDS: OXYcodone IR 5MG TABLET PO PRN ×3 (04:24→20:28)
[2020-03-04 05:08] LABS: ANION GAP 6 mmol/L (5-15); CALCIUM 7.9 mg/dL (8.5-10.1); CHLORIDE 104 mmol/L (98-107)
[2020-03-04 05:10] LABS: CREATININE 0.41 mg/dL (0.55-1.02)
[2020-03-04 05:24] LABS: BASOPHILS # (AUTO) 0.04 x10^3/uL (0-0.1); BASOPHILS % (AUTO) 1 % (0-1); EOSINOPHILS # (AUTO) 0.12 x10^3/uL (0-0.4); EOSINOPHILS % (AUTO) 2 % (1-7); LYMPHOCYTES # (AUTO) 1.41 x10^3/uL (1-3.4); LYMPHOCYTES % (AUTO) 18 % (22-44); MD NO; MEAN CORPUSCULAR HEMOGLOBIN 27.6 pg (27.0-34.8); MEAN CORPUSCULAR HGB CONC 32.6 g/dL (32.4-35.8); MEAN CORPUSCULAR VOLUME 84.6 fL (80-100); MEAN PLATELET VOLUME 7.2 fL (7.4-10.4); MONOCYTES # (AUTO) 1.21 x10^3/uL (0.2-0.8); MONOCYTES % (AUTO) 15 % (2-9); NEUTROPHILS # (AUTO) 5.28 x10^3/uL (1.8-6.8); NEUTROPHILS % (AUTO) 66 % (42-75); PLATELET COUNT 446 x10^3/uL (130-400); RED BLOOD COUNT 2.84 x10^6/uL (3.82-5.3)
[2020-03-04] MEDS: CARVEDILOL 3.125 MG TABLET PO SCH ×2 (06:55→16:07)
[2020-03-04 07:00] VITALS: BP 155/89
[2020-03-04] MEDS: INSULIN LISPRO 100 UNITS/ML, PEN SQ-INSULIN SCH ×4 (07:00→20:29)
[2020-03-04] MEDS: POTASSIUM CHLORIDE 20 MEQ TAB.ER.PRT PO SCH ×2 (08:38→16:07)
[2020-03-04] MEDS: LACTOBACILLUS CHEW TABLET PO SCH ×3 (08:38→20:28)
[2020-03-04] MEDS: FAMOTIDINE 20 MG TABLET PO SCH ×2 (08:38→20:28)
[2020-03-04] MEDS: MICAFUNGIN 100 MG in SODIUM CHLORIDE 0.9% 100 ML IV SCH (13:08)
[2020-03-04 13:47] VITALS: BP 153/90
[2020-03-04] MEDS: ENOXAPARIN 40 MG/0.4 ML SQ SCH (16:07)
[2020-03-04 19:44] VITALS: BP 132/64
[2020-03-04] MEDS ORDERED: INSULIN GLARGINE 100 UNITS/ML, PEN SQ-INSULIN SCH (21:00)
[2020-03-05 00:44] VITALS: BP 133/73
[2020-03-05] MEDS: OXYcodone IR 5MG TABLET PO PRN ×5 (00:45→20:22)
[2020-03-05] MEDS: ACETAMINOPHEN 325 MG TABLET PO SCH ×4 (04:44→23:25)
[2020-03-05 05:03] LABS: BASOPHILS # (AUTO) 0.02 x10^3/uL (0-0.1); BASOPHILS % (AUTO) 0 % (0-1); EOSINOPHILS # (AUTO) 0.16 x10^3/uL (0-0.4); EOSINOPHILS % (AUTO) 2 % (1-7); LYMPHOCYTES # (AUTO) 1.84 x10^3/uL (1-3.4); LYMPHOCYTES % (AUTO) 20 % (22-44); MD NO; MEAN CORPUSCULAR HEMOGLOBIN 27.3 pg (27.0-34.8); MEAN CORPUSCULAR HGB CONC 31.8 g/dL (32.4-35.8); MEAN CORPUSCULAR VOLUME 85.7 fL (80-100); MEAN PLATELET VOLUME 7.6 fL (7.4-10.4); MONOCYTES % (AUTO) 12 % (2-9); NEUTROPHILS # (AUTO) 5.91 x10^3/uL (1.8-6.8); NEUTROPHILS % (AUTO) 65 % (42-75); PLATELET COUNT 487 x10^3/uL (130-400); RED BLOOD COUNT 3.21 x10^6/uL (3.82-5.3); RED CELL DISTRIBUTION WIDTH 17.9 % (9.6-15.2)
[2020-03-05 05:09] LABS: ANION GAP 7 mmol/L (5-15); CALCIUM 8.4 mg/dL (8.5-10.1); CHLORIDE 105 mmol/L (98-107)
[2020-03-05 05:10] LABS: CREATININE 0.51 mg/dL (0.55-1.02)
[2020-03-05] MEDS: INSULIN LISPRO 100 UNITS/ML, PEN SQ-INSULIN SCH ×4 (06:06→19:57)
[2020-03-05] MEDS: PIPERACILLIN/TAZO/PMX 3.375GM 50 ML IV SCH ×4 (06:12→23:25)
[2020-03-05] MEDS: CARVEDILOL 3.125 MG TABLET PO SCH ×2 (06:13→17:31)
[2020-03-05 06:53] VITALS: BP 149/74
[2020-03-05] MEDS: FAMOTIDINE 20 MG TABLET PO SCH ×2 (07:33→19:55)
[2020-03-05] MEDS: POTASSIUM CHLORIDE 20 MEQ TAB.ER.PRT PO SCH (07:33)
[2020-03-05] MEDS: LACTOBACILLUS CHEW TABLET PO SCH ×3 (07:33→19:55)
[2020-03-05] MEDS: FERROUS SULFATE 325 MG TABLET PO SCH (07:33)
[2020-03-05] MEDS: MICAFUNGIN 100 MG in SODIUM CHLORIDE 0.9% 100 ML IV SCH (13:57)
[2020-03-05 14:00] VITALS: BP 133/80
[2020-03-05] MEDS: ENOXAPARIN 40 MG/0.4 ML SQ SCH (15:32)
[2020-03-05 19:39] VITALS: BP 144/76
[2020-03-05] MEDS: INSULIN GLARGINE 100 UNITS/ML, PEN SQ-INSULIN SCH (20:03)
[2020-03-05] MEDS: TRAZODONE 50MG TABLET PO PRN (23:25)
[2020-03-06 01:30] VITALS: BP 130/72
[2020-03-06] MEDS: OXYcodone IR 5MG TABLET PO PRN ×5 (01:39→20:58)
[2020-03-06] MEDS: ACETAMINOPHEN 325 MG TABLET PO SCH ×3 (06:05→18:10)
[2020-03-06] MEDS: PIPERACILLIN/TAZO/PMX 3.375GM 50 ML IV SCH ×3 (06:05→18:09)
[2020-03-06] MEDS: CARVEDILOL 3.125 MG TABLET PO SCH ×2 (06:05→18:09)
[2020-03-06] MEDS: INSULIN LISPRO 100 UNITS/ML, PEN SQ-INSULIN SCH ×4 (06:15→20:58)
[2020-03-06 06:38] LABS: BASOPHILS # (AUTO) 0.05 x10^3/uL (0-0.1); BASOPHILS % (AUTO) 1 % (0-1); EOSINOPHILS % (AUTO) 3 % (1-7); LYMPHOCYTES # (AUTO) 1.71 x10^3/uL (1-3.4); LYMPHOCYTES % (AUTO) 24 % (22-44); MD NO; MEAN CORPUSCULAR HEMOGLOBIN 27.7 pg (27.0-34.8); MEAN CORPUSCULAR HGB CONC 32.4 g/dL (32.4-35.8); MEAN CORPUSCULAR VOLUME 85.4 fL (80-100); MEAN PLATELET VOLUME 7.5 fL (7.4-10.4); MONOCYTES # (AUTO) 1.19 x10^3/uL (0.2-0.8); MONOCYTES % (AUTO) 16 % (2-9); NEUTROPHILS # (AUTO) 4.11 x10^3/uL (1.8-6.8); NEUTROPHILS % (AUTO) 57 % (42-75); PLATELET COUNT 415 x10^3/uL (130-400); RED BLOOD COUNT 2.92 x10^6/uL (3.82-5.3); RED CELL DISTRIBUTION WIDTH 18.2 % (9.6-15.2)
[2020-03-06 06:47] LABS: ANION GAP 8 mmol/L (5-15); CALCIUM 8.1 mg/dL (8.5-10.1); CHLORIDE 107 mmol/L (98-107)
[2020-03-06 06:49] LABS: CREATININE 0.47 mg/dL (0.55-1.02)
[2020-03-06 07:21] VITALS: BP 142/80
[2020-03-06] MEDS: LACTOBACILLUS CHEW TABLET PO SCH ×3 (08:41→20:19)
[2020-03-06] MEDS: FAMOTIDINE 20 MG TABLET PO SCH ×2 (08:41→20:19)
[2020-03-06 13:39] VITALS: BP 138/84
[2020-03-06] MEDS: MICAFUNGIN 100 MG in SODIUM CHLORIDE 0.9% 100 ML IV SCH (13:43)
[2020-03-06] MEDS: ENOXAPARIN 40 MG/0.4 ML SQ SCH (16:38)
[2020-03-06 19:12] VITALS: BP 127/76
[2020-03-06] MEDS: INSULIN GLARGINE 100 UNITS/ML, PEN SQ-INSULIN SCH (20:58)
[2020-03-07 00:05] VITALS: BP 151/85
[2020-03-07] MEDS: PIPERACILLIN/TAZO/PMX 3.375GM 50 ML IV SCH ×5 (00:28→23:51)
[2020-03-07] MEDS: ACETAMINOPHEN 325 MG TABLET PO SCH ×5 (00:31→23:51)
[2020-03-07] MEDS: TRAZODONE 50MG TABLET PO PRN ×2 (00:31→23:51)
[2020-03-07] MEDS: OXYcodone IR 5MG TABLET PO PRN ×6 (00:31→21:37)
[2020-03-07 04:12] LABS: BASOPHILS # (AUTO) 0.04 x10^3/uL (0-0.1); BASOPHILS % (AUTO) 1 % (0-1); EOSINOPHILS # (AUTO) 0.23 x10^3/uL (0-0.4); EOSINOPHILS % (AUTO) 3 % (1-7); LYMPHOCYTES # (AUTO) 1.81 x10^3/uL (1-3.4); LYMPHOCYTES % (AUTO) 20 % (22-44); MD NO; MEAN CORPUSCULAR HEMOGLOBIN 27.4 pg (27.0-34.8); MEAN CORPUSCULAR HGB CONC 32.1 g/dL (32.4-35.8); MEAN CORPUSCULAR VOLUME 85.4 fL (80-100); MEAN PLATELET VOLUME 7.4 fL (7.4-10.4); MONOCYTES # (AUTO) 1.24 x10^3/uL (0.2-0.8); MONOCYTES % (AUTO) 14 % (2-9); NEUTROPHILS # (AUTO) 5.79 x10^3/uL (1.8-6.8); NEUTROPHILS % (AUTO) 64 % (42-75); PLATELET COUNT 417 x10^3/uL (130-400); RED BLOOD COUNT 2.91 x10^6/uL (3.82-5.3)
[2020-03-07 04:23] LABS: ANION GAP 8 mmol/L (5-15); CHLORIDE 105 mmol/L (98-107); CREATININE 0.51 mg/dL (0.55-1.02)
[2020-03-07] MEDS: INSULIN LISPRO 100 UNITS/ML, PEN SQ-INSULIN SCH ×4 (06:07→21:36)
[2020-03-07] MEDS: CARVEDILOL 3.125 MG TABLET PO SCH ×2 (06:07→18:08)
[2020-03-07 07:30] VITALS: BP 146/86
[2020-03-07] MEDS: FAMOTIDINE 20 MG TABLET PO SCH ×2 (08:34→21:37)
[2020-03-07] MEDS: FERROUS SULFATE 325 MG TABLET PO SCH (08:34)
[2020-03-07] MEDS: LACTOBACILLUS CHEW TABLET PO SCH ×3 (08:34→21:38)
[2020-03-07] MEDS ORDERED: OMNIPAQUE 350 MG/ML, 100ML BOTTLE ONE (12:05)
[2020-03-07] MEDS: MICAFUNGIN 100 MG in SODIUM CHLORIDE 0.9% 100 ML IV SCH ×2 (12:16→13:24)
[2020-03-07 13:05] VITALS: BP 144/84
[2020-03-07] MEDS: ENOXAPARIN 40 MG/0.4 ML SQ SCH (16:50)
[2020-03-07 19:22] VITALS: BP 120/70
[2020-03-07] MEDS: INSULIN GLARGINE 100 UNITS/ML, PEN SQ-INSULIN SCH (21:37)
[2020-03-07] MEDS: CALCIUM CARBONATE 500 MG TAB.CHEW PO PRN (21:37)
[2020-03-08] MEDS: OXYcodone IR 5MG TABLET PO PRN ×5 (01:29→21:09)
[2020-03-08 01:36] VITALS: BP 111/57
[2020-03-08 04:57] LABS: BASOPHILS # (AUTO) 0.05 x10^3/uL (0-0.1); BASOPHILS % (AUTO) 1 % (0-1); EOSINOPHILS # (AUTO) 0.28 x10^3/uL (0-0.4); EOSINOPHILS % (AUTO) 4 % (1-7); LYMPHOCYTES # (AUTO) 1.82 x10^3/uL (1-3.4); LYMPHOCYTES % (AUTO) 23 % (22-44); MD NO; MEAN CORPUSCULAR HEMOGLOBIN 27.7 pg (27.0-34.8); MEAN CORPUSCULAR HGB CONC 32.3 g/dL (32.4-35.8); MEAN CORPUSCULAR VOLUME 85.7 fL (80-100); MEAN PLATELET VOLUME 7.3 fL (7.4-10.4); MONOCYTES # (AUTO) 1.09 x10^3/uL (0.2-0.8); MONOCYTES % (AUTO) 14 % (2-9); NEUTROPHILS # (AUTO) 4.59 x10^3/uL (1.8-6.8); NEUTROPHILS % (AUTO) 59 % (42-75); PLATELET COUNT 431 x10^3/uL (130-400); RED BLOOD COUNT 2.92 x10^6/uL (3.82-5.3); RED CELL DISTRIBUTION WIDTH 19.2 % (9.6-15.2)
[2020-03-08 05:09] LABS: ANION GAP 8 mmol/L (5-15); CALCIUM 8.2 mg/dL (8.5-10.1); CHLORIDE 105 mmol/L (98-107)
[2020-03-08 05:10] LABS: CREATININE 0.55 mg/dL (0.55-1.02)
[2020-03-08] MEDS: PIPERACILLIN/TAZO/PMX 3.375GM 50 ML IV SCH ×4 (06:01→23:59)
[2020-03-08] MEDS: ACETAMINOPHEN 325 MG TABLET PO SCH ×4 (06:01→23:58)
[2020-03-08] MEDS: CARVEDILOL 3.125 MG TABLET PO SCH ×2 (06:02→17:49)
[2020-03-08] MEDS: CALCIUM CARBONATE 500 MG TAB.CHEW PO PRN ×2 (06:09→20:04)
[2020-03-08] MEDS: INSULIN LISPRO 100 UNITS/ML, PEN SQ-INSULIN SCH ×4 (06:17→20:04)
[2020-03-08 07:31] VITALS: BP 123/75
[2020-03-08] MEDS: FAMOTIDINE 20 MG TABLET PO SCH ×2 (07:51→20:03)
[2020-03-08] MEDS: LACTOBACILLUS CHEW TABLET PO SCH ×3 (07:51→20:04)
[2020-03-08 12:46] VITALS: BP 111/76
[2020-03-08] MEDS: MICAFUNGIN 100 MG in SODIUM CHLORIDE 0.9% 100 ML IV SCH (13:33)
[2020-03-08] MEDS: ENOXAPARIN 40 MG/0.4 ML SQ SCH (16:12)
[2020-03-08 19:08] VITALS: BP 134/75
[2020-03-08] MEDS: INSULIN GLARGINE 100 UNITS/ML, PEN SQ-INSULIN SCH (20:04)
[2020-03-08] MEDS: TRAZODONE 50MG TABLET PO PRN (23:58)
[2020-03-09 00:15] VITALS: BP 127/66
[2020-03-09] MEDS: OXYcodone IR 5MG TABLET PO PRN ×5 (01:25→20:08)
[2020-03-09] MEDS: ACETAMINOPHEN 325 MG TABLET PO SCH ×3 (05:40→17:45)
[2020-03-09] MEDS: PIPERACILLIN/TAZO/PMX 3.375GM 50 ML IV SCH ×3 (05:40→17:42)
[2020-03-09] MEDS: CARVEDILOL 3.125 MG TABLET PO SCH ×2 (05:41→17:45)
[2020-03-09 05:54] LABS: ANION GAP 8 mmol/L (5-15); CALCIUM 8.3 mg/dL (8.5-10.1); CHLORIDE 103 mmol/L (98-107)
[2020-03-09 05:56] LABS: CREATININE 0.61 mg/dL (0.55-1.02)
[2020-03-09 05:59] LABS: MEAN CORPUSCULAR HEMOGLOBIN 27.8 pg (27.0-34.8); MEAN CORPUSCULAR HGB CONC 32.5 g/dL (32.4-35.8); MEAN CORPUSCULAR VOLUME 85.7 fL (80-100); MEAN PLATELET VOLUME 7.5 fL (7.4-10.4); PLATELET COUNT 436 x10^3/uL (130-400); RED BLOOD COUNT 3.01 x10^6/uL (3.82-5.3); RED CELL DISTRIBUTION WIDTH 19.1 % (9.6-15.2)
[2020-03-09 06:40] LABS: BASOPHILS # (AUTO) 0.04 x10^3/uL (0-0.1); BASOPHILS % (AUTO) 0 % (0-1); EOSINOPHILS # (AUTO) 0.21 x10^3/uL (0-0.4); EOSINOPHILS % (AUTO) 2 % (1-7); LYMPHOCYTES % (AUTO) 20 % (22-44); MD SCAN; MONOCYTES # (AUTO) 1.39 x10^3/uL (0.2-0.8); MONOCYTES % (AUTO) 14 % (2-9); NEUTROPHILS % (AUTO) 64 % (42-75)
[2020-03-09] MEDS: INSULIN LISPRO 100 UNITS/ML, PEN SQ-INSULIN SCH ×4 (07:10→20:12)
[2020-03-09 07:28] VITALS: BP 146/81
[2020-03-09] MEDS: FAMOTIDINE 20 MG TABLET PO SCH ×2 (09:01→20:08)
[2020-03-09] MEDS: FERROUS SULFATE 325 MG TABLET PO SCH (09:01)
[2020-03-09] MEDS: LACTOBACILLUS CHEW TABLET PO SCH ×3 (09:01→20:07)
[2020-03-09 13:43] VITALS: BP 123/76
[2020-03-09] MEDS: MICAFUNGIN 100 MG in SODIUM CHLORIDE 0.9% 100 ML IV SCH (14:35)
[2020-03-09] MEDS: ENOXAPARIN 40 MG/0.4 ML SQ SCH (15:37)
[2020-03-09 19:38] VITALS: BP 119/75
[2020-03-09] MEDS: INSULIN GLARGINE 100 UNITS/ML, PEN SQ-INSULIN SCH (20:26)
[2020-03-10] MEDS: ACETAMINOPHEN 325 MG TABLET PO SCH ×5 (00:08→23:43)
[2020-03-10] MEDS: PIPERACILLIN/TAZO/PMX 3.375GM 50 ML IV SCH ×5 (00:08→23:43)
[2020-03-10] MEDS: OXYcodone IR 5MG TABLET PO PRN ×6 (00:08→22:13)
[2020-03-10] MEDS: TRAZODONE 50MG TABLET PO PRN ×2 (00:08→23:43)
[2020-03-10 00:54] VITALS: BP 128/77
[2020-03-10 05:06] LABS: MEAN CORPUSCULAR HEMOGLOBIN 27.5 pg (27.0-34.8); MEAN CORPUSCULAR HGB CONC 31.9 g/dL (32.4-35.8); MEAN CORPUSCULAR VOLUME 86.2 fL (80-100); MEAN PLATELET VOLUME 8.2 fL (7.4-10.4); PLATELET COUNT 465 x10^3/uL (130-400); RED BLOOD COUNT 3.17 x10^6/uL (3.82-5.3); RED CELL DISTRIBUTION WIDTH 19.4 % (9.6-15.2)
[2020-03-10 05:12] LABS: ALBUMIN 1.7 g/dL (3.4-5.0); ANION GAP 8 mmol/L (5-15); CALCIUM 8.5 mg/dL (8.5-10.1); CHLORIDE 102 mmol/L (98-107)
[2020-03-10 05:20] LABS: ALANINE AMINOTRANSFERASE 11 U/L (12-78); ALKALINE PHOSPHATASE 180 U/L (45-117); BILIRUBIN,TOTAL 0.4 mg/dL (0.2-1.0); CREATININE 0.53 mg/dL (0.55-1.02); TOTAL PROTEIN 6.5 g/dL (6.4-8.2)
[2020-03-10 05:41] LABS: BASOPHILS # (AUTO) 0.05 x10^3/uL (0-0.1); BASOPHILS % (AUTO) 0 % (0-1); EOSINOPHILS # (AUTO) 0.27 x10^3/uL (0-0.4); EOSINOPHILS % (AUTO) 2 % (1-7); LYMPHOCYTES # (AUTO) 2.02 x10^3/uL (1-3.4); LYMPHOCYTES % (AUTO) 15 % (22-44); MD SCAN; MONOCYTES # (AUTO) 1.79 x10^3/uL (0.2-0.8); MONOCYTES % (AUTO) 13 % (2-9); NEUTROPHILS # (AUTO) 9.26 x10^3/uL (1.8-6.8); NEUTROPHILS % (AUTO) 69 % (42-75)
[2020-03-10 05:45] LABS: HCT (SEDRATE) 27.4 % (34.6-47.8)
[2020-03-10] MEDS: INSULIN LISPRO 100 UNITS/ML, PEN SQ-INSULIN SCH ×4 (06:08→22:39)
[2020-03-10] MEDS: CARVEDILOL 3.125 MG TABLET PO SCH ×2 (06:08→17:34)
[2020-03-10 07:48] VITALS: BP 127/76
[2020-03-10] MEDS: FAMOTIDINE 20 MG TABLET PO SCH ×2 (08:26→22:12)
[2020-03-10] MEDS: LACTOBACILLUS CHEW TABLET PO SCH ×3 (08:26→22:13)
[2020-03-10] MEDS: MICAFUNGIN 100 MG in SODIUM CHLORIDE 0.9% 100 ML IV SCH (13:39)
[2020-03-10 15:32] VITALS: BP 101/65
[2020-03-10] MEDS: ENOXAPARIN 40 MG/0.4 ML SQ SCH (16:04)
[2020-03-10 17:33] VITALS: BP 109/67
[2020-03-10 19:05] VITALS: BP 106/67
[2020-03-10] MEDS: INSULIN GLARGINE 100 UNITS/ML, PEN SQ-INSULIN SCH (22:39)
[2020-03-10] MEDS: CALCIUM CARBONATE 500 MG TAB.CHEW PO PRN (22:57)
[2020-03-11 01:33] VITALS: BP 137/79
[2020-03-11] MEDS: OXYcodone IR 5MG TABLET PO PRN ×4 (05:27→20:23)
[2020-03-11] MEDS: CARVEDILOL 3.125 MG TABLET PO SCH ×2 (05:27→18:02)
[2020-03-11] MEDS: PIPERACILLIN/TAZO/PMX 3.375GM 50 ML IV SCH ×3 (05:27→18:02)
[2020-03-11] MEDS: ACETAMINOPHEN 325 MG TABLET PO SCH ×3 (05:27→18:02)
[2020-03-11 06:10] LABS: BASOPHILS # (AUTO) 0.03 x10^3/uL (0-0.1); BASOPHILS % (AUTO) 0 % (0-1); EOSINOPHILS # (AUTO) 0.16 x10^3/uL (0-0.4); EOSINOPHILS % (AUTO) 2 % (1-7); LYMPHOCYTES # (AUTO) 1.48 x10^3/uL (1-3.4); LYMPHOCYTES % (AUTO) 16 % (22-44); MD NO; MEAN CORPUSCULAR HEMOGLOBIN 27.6 pg (27.0-34.8); MEAN CORPUSCULAR VOLUME 86.3 fL (80-100); MEAN PLATELET VOLUME 7.5 fL (7.4-10.4); MONOCYTES # (AUTO) 1.17 x10^3/uL (0.2-0.8); MONOCYTES % (AUTO) 13 % (2-9); NEUTROPHILS # (AUTO) 6.24 x10^3/uL (1.8-6.8); NEUTROPHILS % (AUTO) 69 % (42-75); PLATELET COUNT 474 x10^3/uL (130-400); RED BLOOD COUNT 2.89 x10^6/uL (3.82-5.3); RED CELL DISTRIBUTION WIDTH 19.4 % (9.6-15.2)
[2020-03-11 06:23] LABS: ANION GAP 10 mmol/L (5-15); CHLORIDE 103 mmol/L (98-107)
[2020-03-11 06:24] LABS: CREATININE 0.42 mg/dL (0.55-1.02)
[2020-03-11 07:06] VITALS: BP 122/76
[2020-03-11] MEDS: LACTOBACILLUS CHEW TABLET PO SCH ×3 (07:25→20:22)
[2020-03-11] MEDS: FERROUS SULFATE 325 MG TABLET PO SCH (07:25)
[2020-03-11] MEDS: INSULIN LISPRO 100 UNITS/ML, PEN SQ-INSULIN SCH ×4 (07:25→20:40)
[2020-03-11] MEDS: FAMOTIDINE 20 MG TABLET PO SCH ×2 (07:26→20:22)
[2020-03-11] MEDS: CALCIUM CARBONATE 500 MG TAB.CHEW PO PRN (07:39)
[2020-03-11 13:24] VITALS: BP 127/72
[2020-03-11] MEDS: MICAFUNGIN 100 MG in SODIUM CHLORIDE 0.9% 100 ML IV SCH (13:27)
[2020-03-11] MEDS ORDERED: MIDAZOLAM 1 MG/ML, 5ML ONE (14:39)
[2020-03-11] MEDS ORDERED: FENTANYL PF 100 MCG/2ML ONE (14:39)
[2020-03-11] MEDS ORDERED: NALOXONE 1 MG/ML, 2ML ONE (14:40)
[2020-03-11] MEDS ORDERED: LIDOCAINE 1%, 10ML ONE (14:40)
[2020-03-11] MEDS ORDERED: FLUMAZENIL 0.1 MG/1 ML, 5ML ONE (14:40)
[2020-03-11] MEDS: ENOXAPARIN 40 MG/0.4 ML SQ SCH (16:26)
[2020-03-11 19:25] VITALS: BP 117/71
[2020-03-11] MEDS: INSULIN GLARGINE 100 UNITS/ML, PEN SQ-INSULIN SCH (20:39)
[2020-03-12] MEDS: PIPERACILLIN/TAZO/PMX 3.375GM 50 ML IV SCH ×4 (00:16→18:33)
[2020-03-12] MEDS: TRAZODONE 50MG TABLET PO PRN (00:16)
[2020-03-12] MEDS: ACETAMINOPHEN 325 MG TABLET PO SCH ×4 (00:16→18:33)
[2020-03-12] MEDS: OXYcodone IR 5MG TABLET PO PRN ×6 (00:16→20:46)
[2020-03-12 01:06] VITALS: BP 145/89
[2020-03-12 04:29] LABS: BASOPHILS # (AUTO) 0.06 x10^3/uL (0-0.1); BASOPHILS % (AUTO) 1 % (0-1); EOSINOPHILS # (AUTO) 0.18 x10^3/uL (0-0.4); EOSINOPHILS % (AUTO) 3 % (1-7); LYMPHOCYTES % (AUTO) 29 % (22-44); MD NO; MEAN CORPUSCULAR HEMOGLOBIN 27.8 pg (27.0-34.8); MEAN CORPUSCULAR HGB CONC 32.2 g/dL (32.4-35.8); MEAN CORPUSCULAR VOLUME 86.2 fL (80-100); MEAN PLATELET VOLUME 7.7 fL (7.4-10.4); MONOCYTES # (AUTO) 1.03 x10^3/uL (0.2-0.8); MONOCYTES % (AUTO) 15 % (2-9); NEUTROPHILS # (AUTO) 3.62 x10^3/uL (1.8-6.8); NEUTROPHILS % (AUTO) 53 % (42-75); PLATELET COUNT 498 x10^3/uL (130-400); RED BLOOD COUNT 2.88 x10^6/uL (3.82-5.3); RED CELL DISTRIBUTION WIDTH 19.2 % (9.6-15.2)
[2020-03-12 04:38] LABS: ANION GAP 9 mmol/L (5-15); CALCIUM 8.1 mg/dL (8.5-10.1); CHLORIDE 103 mmol/L (98-107)
[2020-03-12 04:39] LABS: CREATININE 0.47 mg/dL (0.55-1.02)
[2020-03-12] MEDS: CARVEDILOL 3.125 MG TABLET PO SCH ×2 (06:06→18:33)
[2020-03-12 07:00] VITALS: BP 144/79
[2020-03-12] MEDS: LACTOBACILLUS CHEW TABLET PO SCH ×3 (07:47→20:46)
[2020-03-12] MEDS: FAMOTIDINE 20 MG TABLET PO SCH ×2 (07:48→20:46)
[2020-03-12] MEDS: INSULIN LISPRO 100 UNITS/ML, PEN SQ-INSULIN SCH ×4 (07:48→23:23)
[2020-03-12] MEDS ORDERED: POTASSIUM CHLORIDE 10% 40 MEQ/30 ML UDC PO ONE (08:00)
[2020-03-12] MEDS ORDERED: POTASSIUM CHLORIDE 20 MEQ TAB.ER.PRT PO ONE (12:00)
[2020-03-12 13:03] VITALS: BP 144/79
[2020-03-12] MEDS: MICAFUNGIN 100 MG in SODIUM CHLORIDE 0.9% 100 ML IV SCH (13:58)
[2020-03-12] MEDS: ENOXAPARIN 40 MG/0.4 ML SQ SCH (16:21)
[2020-03-12 19:19] VITALS: BP 118/71
[2020-03-12] MEDS: INSULIN GLARGINE 100 UNITS/ML, PEN SQ-INSULIN SCH (23:22)
[2020-03-13] MEDS: OXYcodone IR 5MG TABLET PO PRN ×7 (01:00→23:54)
[2020-03-13] MEDS: ACETAMINOPHEN 325 MG TABLET PO SCH ×5 (01:00→23:53)
[2020-03-13] MEDS: PIPERACILLIN/TAZO/PMX 3.375GM 50 ML IV SCH ×4 (01:00→18:47)
[2020-03-13] MEDS: CALCIUM CARBONATE 500 MG TAB.CHEW PO PRN ×2 (01:01→20:24)
[2020-03-13] MEDS: TRAZODONE 50MG TABLET PO PRN (01:08)
[2020-03-13 01:30] VITALS: BP 149/93
[2020-03-13 05:37] LABS: CHLORIDE 104 mmol/L (98-107)
[2020-03-13 05:42] LABS: BASOPHILS # (AUTO) 0.05 x10^3/uL (0-0.1); BASOPHILS % (AUTO) 1 % (0-1); EOSINOPHILS # (AUTO) 0.21 x10^3/uL (0-0.4); EOSINOPHILS % (AUTO) 4 % (1-7); LYMPHOCYTES % (AUTO) 28 % (22-44); MD NO; MEAN CORPUSCULAR HEMOGLOBIN 27.4 pg (27.0-34.8); MEAN CORPUSCULAR HGB CONC 31.9 g/dL (32.4-35.8); MEAN PLATELET VOLUME 7.6 fL (7.4-10.4); MONOCYTES # (AUTO) 0.74 x10^3/uL (0.2-0.8); MONOCYTES % (AUTO) 14 % (2-9); NEUTROPHILS # (AUTO) 2.84 x10^3/uL (1.8-6.8); NEUTROPHILS % (AUTO) 53 % (42-75); PLATELET COUNT 537 x10^3/uL (130-400); RED BLOOD COUNT 2.84 x10^6/uL (3.82-5.3)
[2020-03-13 05:43] LABS: ALANINE AMINOTRANSFERASE 11 U/L (12-78); ALBUMIN 1.6 g/dL (3.4-5.0); ALKALINE PHOSPHATASE 152 U/L (45-117); ANION GAP 9 mmol/L (5-15); BILIRUBIN,TOTAL 0.3 mg/dL (0.2-1.0); CALCIUM 8.3 mg/dL (8.5-10.1); CREATININE 0.48 mg/dL (0.55-1.02); TOTAL PROTEIN 5.8 g/dL (6.4-8.2)
[2020-03-13] MEDS: CARVEDILOL 3.125 MG TABLET PO SCH ×2 (07:00→17:57)
[2020-03-13] MEDS: INSULIN LISPRO 100 UNITS/ML, PEN SQ-INSULIN SCH ×4 (07:00→20:24)
[2020-03-13 07:54] VITALS: BP 140/82
[2020-03-13] MEDS ORDERED: MAGNESIUM SULFATE PMX 2GM/50ML 50 ML IV ONE (08:00)
[2020-03-13] MEDS: FERROUS SULFATE 325 MG TABLET PO SCH (08:53)
[2020-03-13] MEDS: FAMOTIDINE 20 MG TABLET PO SCH ×2 (08:53→20:24)
[2020-03-13] MEDS: LACTOBACILLUS CHEW TABLET PO SCH ×3 (08:53→20:24)
[2020-03-13 13:13] VITALS: BP 125/81
[2020-03-13] MEDS: MICAFUNGIN 100 MG in SODIUM CHLORIDE 0.9% 100 ML IV SCH (14:10)
[2020-03-13] MEDS: ENOXAPARIN 40 MG/0.4 ML SQ SCH (16:33)
[2020-03-13 18:54] VITALS: BP 129/74
[2020-03-13] MEDS: INSULIN GLARGINE 100 UNITS/ML, PEN SQ-INSULIN SCH (20:25)
[2020-03-14 00:29] VITALS: BP 157/94
[2020-03-14] MEDS: PIPERACILLIN/TAZO/PMX 3.375GM 50 ML IV SCH ×5 (00:32→19:14)
[2020-03-14] MEDS: OXYcodone IR 5MG TABLET PO PRN ×4 (04:42→19:14)
[2020-03-14 05:57] LABS: ANION GAP 9 mmol/L (5-15); CHLORIDE 101 mmol/L (98-107); CREATININE 0.45 mg/dL (0.55-1.02)
[2020-03-14 06:09] LABS: BASOPHILS # (AUTO) 0.05 x10^3/uL (0-0.1); BASOPHILS % (AUTO) 1 % (0-1); EOSINOPHILS # (AUTO) 0.13 x10^3/uL (0-0.4); EOSINOPHILS % (AUTO) 2 % (1-7); LYMPHOCYTES # (AUTO) 1.52 x10^3/uL (1-3.4); LYMPHOCYTES % (AUTO) 23 % (22-44); MD NO; MEAN CORPUSCULAR HEMOGLOBIN 27.5 pg (27.0-34.8); MEAN CORPUSCULAR HGB CONC 31.8 g/dL (32.4-35.8); MEAN CORPUSCULAR VOLUME 86.3 fL (80-100); MEAN PLATELET VOLUME 7.2 fL (7.4-10.4); MONOCYTES # (AUTO) 0.69 x10^3/uL (0.2-0.8); MONOCYTES % (AUTO) 11 % (2-9); NEUTROPHILS # (AUTO) 4.16 x10^3/uL (1.8-6.8); NEUTROPHILS % (AUTO) 64 % (42-75); PLATELET COUNT 557 x10^3/uL (130-400); RED CELL DISTRIBUTION WIDTH 19.5 % (9.6-15.2)
[2020-03-14] MEDS: CARVEDILOL 3.125 MG TABLET PO SCH ×2 (06:25→17:11)
[2020-03-14] MEDS: ACETAMINOPHEN 325 MG TABLET PO SCH ×3 (06:25→19:00)
[2020-03-14 07:28] VITALS: BP 146/85
[2020-03-14] MEDS: FAMOTIDINE 20 MG TABLET PO SCH ×2 (07:40→20:14)
[2020-03-14] MEDS: LACTOBACILLUS CHEW TABLET PO SCH ×3 (07:40→20:14)
[2020-03-14] MEDS: INSULIN LISPRO 100 UNITS/ML, PEN SQ-INSULIN SCH ×4 (07:40→20:07)
[2020-03-14] MEDS: MICAFUNGIN 100 MG in SODIUM CHLORIDE 0.9% 100 ML IV SCH (13:58)
[2020-03-14 14:00] VITALS: BP 129/77
[2020-03-14] MEDS: ENOXAPARIN 40 MG/0.4 ML SQ SCH (16:02)
[2020-03-14 19:10] VITALS: BP 161/101
[2020-03-14 20:10] VITALS: BP 122/71
[2020-03-14] MEDS: INSULIN GLARGINE 100 UNITS/ML, PEN SQ-INSULIN SCH (20:14)
[2020-03-14 20:30] VITALS: BP 134/79
[2020-03-14] MEDS: CALCIUM CARBONATE 500 MG TAB.CHEW PO PRN (21:30)
[2020-03-15] MEDS: TRAZODONE 50MG TABLET PO PRN ×2 (00:35→21:25)
[2020-03-15] MEDS: OXYcodone IR 5MG TABLET PO PRN ×4 (00:36→21:27)
[2020-03-15] MEDS: ACETAMINOPHEN 325 MG TABLET PO SCH ×4 (00:37→18:32)
[2020-03-15 01:12] VITALS: BP 154/86
[2020-03-15] MEDS: PIPERACILLIN/TAZO/PMX 3.375GM 50 ML IV SCH ×4 (01:33→19:46)
[2020-03-15] MEDS: CALCIUM CARBONATE 500 MG TAB.CHEW PO PRN ×2 (04:22→21:25)
[2020-03-15] MEDS: CARVEDILOL 3.125 MG TABLET PO SCH ×2 (05:01→18:32)
[2020-03-15 05:02] VITALS: BP 145/79
[2020-03-15 05:29] LABS: BASOPHILS # (AUTO) 0.05 x10^3/uL (0-0.1); BASOPHILS % (AUTO) 1 % (0-1); EOSINOPHILS # (AUTO) 0.13 x10^3/uL (0-0.4); EOSINOPHILS % (AUTO) 2 % (1-7); LYMPHOCYTES # (AUTO) 1.47 x10^3/uL (1-3.4); LYMPHOCYTES % (AUTO) 24 % (22-44); MD NO; MEAN CORPUSCULAR HGB CONC 32.7 g/dL (32.4-35.8); MEAN CORPUSCULAR VOLUME 85.6 fL (80-100); MEAN PLATELET VOLUME 7.5 fL (7.4-10.4); MONOCYTES # (AUTO) 0.63 x10^3/uL (0.2-0.8); MONOCYTES % (AUTO) 11 % (2-9); NEUTROPHILS # (AUTO) 3.73 x10^3/uL (1.8-6.8); NEUTROPHILS % (AUTO) 62 % (42-75); PLATELET COUNT 526 x10^3/uL (130-400); RED BLOOD COUNT 2.89 x10^6/uL (3.82-5.3); RED CELL DISTRIBUTION WIDTH 19.8 % (9.6-15.2)
[2020-03-15 05:35] LABS: ALANINE AMINOTRANSFERASE 16 U/L (12-78); ALBUMIN 1.8 g/dL (3.4-5.0); ANION GAP 11 mmol/L (5-15); CALCIUM 8.2 mg/dL (8.5-10.1); CHLORIDE 102 mmol/L (98-107)
[2020-03-15 05:38] LABS: ALKALINE PHOSPHATASE 159 U/L (45-117); BILIRUBIN,TOTAL 0.4 mg/dL (0.2-1.0); CREATINE KINASE, TOTAL 14 U/L (26-192); CREATININE 0.42 mg/dL (0.55-1.02); TOTAL PROTEIN 6.1 g/dL (6.4-8.2)
[2020-03-15 07:30] VITALS: BP 128/82
[2020-03-15] MEDS: INSULIN LISPRO 100 UNITS/ML, PEN SQ-INSULIN SCH ×4 (07:41→21:29)
[2020-03-15] MEDS: FAMOTIDINE 20 MG TABLET PO SCH ×2 (07:41→21:25)
[2020-03-15] MEDS: LACTOBACILLUS CHEW TABLET PO SCH ×3 (07:41→21:25)
[2020-03-15] MEDS: FERROUS SULFATE 325 MG TABLET PO SCH (07:41)
[2020-03-15] MEDS: MICAFUNGIN 100 MG in SODIUM CHLORIDE 0.9% 100 ML IV SCH (12:48)
[2020-03-15 13:00] VITALS: BP 147/90
[2020-03-15] MEDS: ENOXAPARIN 40 MG/0.4 ML SQ SCH (16:57)
[2020-03-15 19:11] VITALS: BP 117/83
[2020-03-15] MEDS: DIPHENHYDRAMINE 50 MG CAPSULE PO PRN (21:25)
[2020-03-15] MEDS: INSULIN GLARGINE 100 UNITS/ML, PEN SQ-INSULIN SCH (21:28)
[2020-03-16] MEDS: PIPERACILLIN/TAZO/PMX 3.375GM 50 ML IV SCH ×4 (01:09→18:30)
[2020-03-16] MEDS: ACETAMINOPHEN 325 MG TABLET PO SCH ×4 (01:09→18:30)
[2020-03-16] MEDS: OXYcodone IR 5MG TABLET PO PRN ×4 (01:10→21:30)
[2020-03-16 01:44] VITALS: BP 134/67
[2020-03-16 06:16] LABS: ANION GAP 7 mmol/L (5-15); CALCIUM 8.4 mg/dL (8.5-10.1); CHLORIDE 105 mmol/L (98-107)
[2020-03-16 06:19] LABS: CREATININE 0.43 mg/dL (0.55-1.02); MEAN CORPUSCULAR HEMOGLOBIN 27.6 pg (27.0-34.8); MEAN CORPUSCULAR HGB CONC 31.7 g/dL (32.4-35.8); MEAN CORPUSCULAR VOLUME 87.2 fL (80-100); MEAN PLATELET VOLUME 7.6 fL (7.4-10.4); PLATELET COUNT 515 x10^3/uL (130-400); RED BLOOD COUNT 2.96 x10^6/uL (3.82-5.3); RED CELL DISTRIBUTION WIDTH 20.4 % (9.6-15.2)
[2020-03-16] MEDS: CALCIUM CARBONATE 500 MG TAB.CHEW PO PRN ×2 (06:22→20:30)
[2020-03-16] MEDS: CARVEDILOL 3.125 MG TABLET PO SCH ×2 (06:23→18:30)
[2020-03-16 06:42] LABS: ANISOCYTOSIS 1+; BASOPHILS # (AUTO) 0.04 x10^3/uL (0-0.1); BASOPHILS % (AUTO) 1 % (0-1); EOSINOPHILS # (AUTO) 0.18 x10^3/uL (0-0.4); EOSINOPHILS % (AUTO) 3 % (1-7); LYMPHOCYTES # (AUTO) 1.56 x10^3/uL (1-3.4); LYMPHOCYTES % (AUTO) 30 % (22-44); MD MORPH REVIEW ONLY; MONOCYTES # (AUTO) 0.77 x10^3/uL (0.2-0.8); MONOCYTES % (AUTO) 15 % (2-9); NEUTROPHILS # (AUTO) 2.73 x10^3/uL (1.8-6.8); NEUTROPHILS % (AUTO) 52 % (42-75); POLYCHROMASIA 1+
[2020-03-16 06:43] LABS: STOMATOCYTES 1+
[2020-03-16 06:44] LABS: <PLATELET ESTIMATE> INCREASED; <PLT MORPHOLOGY> NORMAL PLT MORPH
[2020-03-16 07:27] VITALS: BP 147/92
[2020-03-16] MEDS: LACTOBACILLUS CHEW TABLET PO SCH ×3 (07:44→20:30)
[2020-03-16] MEDS: INSULIN LISPRO 100 UNITS/ML, PEN SQ-INSULIN SCH ×4 (07:44→20:32)
[2020-03-16] MEDS: FAMOTIDINE 20 MG TABLET PO SCH ×2 (07:44→20:30)
[2020-03-16] MEDS: MICAFUNGIN 100 MG in SODIUM CHLORIDE 0.9% 100 ML IV SCH (13:36)
[2020-03-16 14:04] VITALS: BP 144/80
[2020-03-16] MEDS: ENOXAPARIN 40 MG/0.4 ML SQ SCH (16:32)
[2020-03-16 19:03] VITALS: BP 123/60
[2020-03-16] MEDS: INSULIN GLARGINE 100 UNITS/ML, PEN SQ-INSULIN SCH (20:31)
[2020-03-16] MEDS: DIPHENHYDRAMINE 50 MG CAPSULE PO PRN (21:29)
[2020-03-16] MEDS: TRAZODONE 50MG TABLET PO PRN (21:30)
[2020-03-17 01:15] VITALS: BP 162/90
[2020-03-17] MEDS: ACETAMINOPHEN 325 MG TABLET PO SCH ×4 (01:22→21:08)
[2020-03-17] MEDS: PIPERACILLIN/TAZO/PMX 3.375GM 50 ML IV SCH ×4 (01:23→21:08)
[2020-03-17] MEDS ORDERED: CATHFLO-ALTEPLASE 2 MG/2 ML CATHFLUSH ONE (01:30)
[2020-03-17 03:09] LABS: BASOPHILS # (AUTO) 0.06 x10^3/uL (0-0.1); BASOPHILS % (AUTO) 1 % (0-1); EOSINOPHILS # (AUTO) 0.29 x10^3/uL (0-0.4); EOSINOPHILS % (AUTO) 5 % (1-7); LYMPHOCYTES # (AUTO) 1.44 x10^3/uL (1-3.4); LYMPHOCYTES % (AUTO) 23 % (22-44); MD NO; MEAN CORPUSCULAR HEMOGLOBIN 27.9 pg (27.0-34.8); MEAN CORPUSCULAR HGB CONC 31.7 g/dL (32.4-35.8); MEAN CORPUSCULAR VOLUME 87.9 fL (80-100); MEAN PLATELET VOLUME 7.2 fL (7.4-10.4); MONOCYTES # (AUTO) 0.77 x10^3/uL (0.2-0.8); MONOCYTES % (AUTO) 12 % (2-9); NEUTROPHILS # (AUTO) 3.72 x10^3/uL (1.8-6.8); NEUTROPHILS % (AUTO) 59 % (42-75); PLATELET COUNT 513 x10^3/uL (130-400); RED BLOOD COUNT 3.12 x10^6/uL (3.82-5.3); RED CELL DISTRIBUTION WIDTH 20.7 % (9.6-15.2)
[2020-03-17 03:22] LABS: ANION GAP 7 mmol/L (5-15); CALCIUM 8.5 mg/dL (8.5-10.1); CHLORIDE 105 mmol/L (98-107); CREATININE 0.47 mg/dL (0.55-1.02)
[2020-03-17] MEDS: CARVEDILOL 3.125 MG TABLET PO SCH ×2 (06:19→18:04)
[2020-03-17 06:58] VITALS: BP 120/69
[2020-03-17] MEDS: INSULIN LISPRO 100 UNITS/ML, PEN SQ-INSULIN SCH ×4 (07:00→21:09)
[2020-03-17] MEDS: FAMOTIDINE 20 MG TABLET PO SCH ×2 (07:43→21:08)
[2020-03-17] MEDS: LACTOBACILLUS CHEW TABLET PO SCH ×3 (07:43→21:08)
[2020-03-17] MEDS: FERROUS SULFATE 325 MG TABLET PO SCH (07:43)
[2020-03-17] MEDS ORDERED: IBUPROFEN 600 MG TABLET PO PRN (09:30)
[2020-03-17 12:34] VITALS: BP 170/92
[2020-03-17 12:54] VITALS: BP 149/85
[2020-03-17] MEDS ORDERED: LISI-420 PO (13:07)
[2020-03-17] MEDS: LISINOPRIL 10 MG TABLET PO SCH (13:23)
[2020-03-17] MEDS: MICAFUNGIN 100 MG in SODIUM CHLORIDE 0.9% 100 ML IV SCH (13:23)
[2020-03-17] MEDS ORDERED: POTASSIUM CHLORIDE 20 MEQ TAB.ER.PRT PO ONE (15:00)
[2020-03-17] MEDS: ENOXAPARIN 40 MG/0.4 ML SQ SCH (15:53)
[2020-03-17 17:59] VITALS: BP 148/90
[2020-03-17 19:41] VITALS: BP 137/81
[2020-03-17] MEDS: INSULIN GLARGINE 100 UNITS/ML, PEN SQ-INSULIN SCH (21:09)
[2020-03-17] MEDS: DIPHENHYDRAMINE 50 MG CAPSULE PO PRN (22:04)
[2020-03-17] MEDS: TRAZODONE 50MG TABLET PO PRN (22:04)
[2020-03-17] MEDS: ALUMINUM/MAG/SIMETHICONE 30 ML UDC PO PRN (22:48)
[2020-03-18 01:11] VITALS: BP 146/87
[2020-03-18] MEDS: ACETAMINOPHEN 325 MG TABLET PO SCH ×4 (03:02→21:04)
[2020-03-18] MEDS: PIPERACILLIN/TAZO/PMX 3.375GM 50 ML IV SCH ×4 (03:03→21:04)
[2020-03-18 04:57] LABS: BASOPHILS # (AUTO) 0.07 x10^3/uL (0-0.1); BASOPHILS % (AUTO) 1 % (0-1); EOSINOPHILS # (AUTO) 0.21 x10^3/uL (0-0.4); EOSINOPHILS % (AUTO) 4 % (1-7); LYMPHOCYTES # (AUTO) 1.44 x10^3/uL (1-3.4); LYMPHOCYTES % (AUTO) 30 % (22-44); MD NO; MEAN CORPUSCULAR HEMOGLOBIN 27.8 pg (27.0-34.8); MEAN CORPUSCULAR VOLUME 86.9 fL (80-100); MEAN PLATELET VOLUME 7.6 fL (7.4-10.4); MONOCYTES % (AUTO) 12 % (2-9); NEUTROPHILS # (AUTO) 2.54 x10^3/uL (1.8-6.8); NEUTROPHILS % (AUTO) 52 % (42-75); PLATELET COUNT 456 x10^3/uL (130-400); RED CELL DISTRIBUTION WIDTH 20.5 % (9.6-15.2)
[2020-03-18 05:04] LABS: ANION GAP 10 mmol/L (5-15); CHLORIDE 105 mmol/L (98-107)
[2020-03-18] MEDS: CARVEDILOL 3.125 MG TABLET PO SCH ×2 (06:16→18:04)
[2020-03-18 07:12] VITALS: BP 132/80
[2020-03-18] MEDS: INSULIN LISPRO 100 UNITS/ML, PEN SQ-INSULIN SCH ×4 (07:13→22:03)
[2020-03-18] MEDS: LACTOBACILLUS CHEW TABLET PO SCH ×3 (08:30→21:04)
[2020-03-18] MEDS: LISINOPRIL 10 MG TABLET PO SCH (08:30)
[2020-03-18] MEDS: FAMOTIDINE 20 MG TABLET PO SCH ×2 (08:30→21:04)
[2020-03-18] MEDS: MICAFUNGIN 100 MG in SODIUM CHLORIDE 0.9% 100 ML IV SCH (13:20)
[2020-03-18 13:23] VITALS: BP 157/92
[2020-03-18] MEDS: ENOXAPARIN 40 MG/0.4 ML SQ SCH (15:37)
[2020-03-18] MEDS ORDERED: ENOXAPARIN 30 MG/0.3 ML SQ SCH (16:00)
[2020-03-18] MEDS: CALCIUM CARBONATE 500 MG TAB.CHEW PO PRN (18:16)
[2020-03-18 20:16] VITALS: BP 139/76
[2020-03-18] MEDS: INSULIN GLARGINE 100 UNITS/ML, PEN SQ-INSULIN SCH (22:03)
[2020-03-18] MEDS: TRAZODONE 50MG TABLET PO PRN (22:27)
[2020-03-18] MEDS: DIPHENHYDRAMINE 50 MG CAPSULE PO PRN (22:28)
[2020-03-19 03:20] VITALS: BP 145/94
[2020-03-19] MEDS: ALUMINUM/MAG/SIMETHICONE 30 ML UDC PO PRN ×2 (03:33→08:02)
[2020-03-19] MEDS: PIPERACILLIN/TAZO/PMX 3.375GM 50 ML IV SCH ×4 (03:34→22:11)
[2020-03-19] MEDS: ACETAMINOPHEN 325 MG TABLET PO SCH ×4 (03:35→21:27)
[2020-03-19 04:12] LABS: BASOPHILS # (AUTO) 0.07 x10^3/uL (0-0.1); BASOPHILS % (AUTO) 1 % (0-1); EOSINOPHILS % (AUTO) 4 % (1-7); LYMPHOCYTES # (AUTO) 1.64 x10^3/uL (1-3.4); LYMPHOCYTES % (AUTO) 30 % (22-44); MD NO; MEAN CORPUSCULAR HEMOGLOBIN 27.9 pg (27.0-34.8); MEAN CORPUSCULAR HGB CONC 32.2 g/dL (32.4-35.8); MEAN CORPUSCULAR VOLUME 86.7 fL (80-100); MEAN PLATELET VOLUME 7.7 fL (7.4-10.4); MONOCYTES # (AUTO) 0.67 x10^3/uL (0.2-0.8); MONOCYTES % (AUTO) 12 % (2-9); NEUTROPHILS # (AUTO) 2.84 x10^3/uL (1.8-6.8); NEUTROPHILS % (AUTO) 52 % (42-75); PLATELET COUNT 533 x10^3/uL (130-400); RED BLOOD COUNT 3.35 x10^6/uL (3.82-5.3); RED CELL DISTRIBUTION WIDTH 20.8 % (9.6-15.2)
[2020-03-19 04:20] LABS: ANION GAP 9 mmol/L (5-15); CALCIUM 8.9 mg/dL (8.5-10.1); CHLORIDE 103 mmol/L (98-107)
[2020-03-19] MEDS: CARVEDILOL 3.125 MG TABLET PO SCH ×2 (06:11→17:48)
[2020-03-19 07:24] VITALS: BP 148/94
[2020-03-19] MEDS: INSULIN LISPRO 100 UNITS/ML, PEN SQ-INSULIN SCH ×4 (07:40→22:11)
[2020-03-19] MEDS: LACTOBACILLUS CHEW TABLET PO SCH ×3 (08:02→21:27)
[2020-03-19] MEDS: FAMOTIDINE 20 MG TABLET PO SCH (08:02)
[2020-03-19] MEDS: FERROUS SULFATE 325 MG TABLET PO SCH (08:02)
[2020-03-19] MEDS: LISINOPRIL 10 MG TABLET PO SCH (08:03)
[2020-03-19] MEDS: ONDANSETRON 2MG/ML, 2ML IV PRN (08:51)
[2020-03-19] MEDS: PANTOPRAZOLE 40 MG IV IVPush SCH (10:17)
[2020-03-19 12:26] VITALS: BP 108/77
[2020-03-19] MEDS: MICAFUNGIN 100 MG in SODIUM CHLORIDE 0.9% 100 ML IV SCH (13:03)
[2020-03-19] MEDS: ENOXAPARIN 40 MG/0.4 ML SQ SCH (15:05)
[2020-03-19 20:14] VITALS: BP 129/76
[2020-03-19] MEDS: DIPHENHYDRAMINE 50 MG CAPSULE PO PRN (22:12)
[2020-03-19] MEDS: INSULIN GLARGINE 100 UNITS/ML, PEN SQ-INSULIN SCH (22:12)
[2020-03-19] MEDS: TRAZODONE 50MG TABLET PO PRN (22:12)
[2020-03-19 23:40] LABS: CLOSTRIDIUM DIFFICILE ANTIGEN NEGATIVE; CLOSTRIDIUM DIFFICILE TOXIN NEGATIVE (Negative)
[2020-03-20 01:54] VITALS: BP 127/77
[2020-03-20] MEDS: ACETAMINOPHEN 325 MG TABLET PO SCH ×4 (02:55→21:50)
[2020-03-20] MEDS: PIPERACILLIN/TAZO/PMX 3.375GM 50 ML IV SCH ×4 (02:55→21:50)
[2020-03-20 03:20] LABS: BASOPHILS # (AUTO) 0.06 x10^3/uL (0-0.1); BASOPHILS % (AUTO) 1 % (0-1); EOSINOPHILS # (AUTO) 0.19 x10^3/uL (0-0.4); EOSINOPHILS % (AUTO) 3 % (1-7); LYMPHOCYTES # (AUTO) 1.65 x10^3/uL (1-3.4); LYMPHOCYTES % (AUTO) 29 % (22-44); MD NO; MEAN CORPUSCULAR HEMOGLOBIN 28.2 pg (27.0-34.8); MEAN CORPUSCULAR HGB CONC 32.3 g/dL (32.4-35.8); MEAN CORPUSCULAR VOLUME 87.3 fL (80-100); MEAN PLATELET VOLUME 7.7 fL (7.4-10.4); MONOCYTES # (AUTO) 0.62 x10^3/uL (0.2-0.8); MONOCYTES % (AUTO) 11 % (2-9); NEUTROPHILS % (AUTO) 56 % (42-75); PLATELET COUNT 484 x10^3/uL (130-400); RED BLOOD COUNT 3.16 x10^6/uL (3.82-5.3); RED CELL DISTRIBUTION WIDTH 20.4 % (9.6-15.2)
[2020-03-20 03:21] LABS: ANION GAP 4 mmol/L (5-15); CALCIUM 8.6 mg/dL (8.5-10.1); CHLORIDE 104 mmol/L (98-107); CREATININE 0.56 mg/dL (0.55-1.02)
[2020-03-20] MEDS: CARVEDILOL 3.125 MG TABLET PO SCH ×2 (06:03→17:27)
[2020-03-20 07:12] VITALS: BP 129/74
[2020-03-20] MEDS: INSULIN LISPRO 100 UNITS/ML, PEN SQ-INSULIN SCH ×4 (07:33→22:34)
[2020-03-20] MEDS: LACTOBACILLUS CHEW TABLET PO SCH ×3 (08:38→21:50)
[2020-03-20] MEDS: LISINOPRIL 10 MG TABLET PO SCH (08:38)
[2020-03-20] MEDS: PANTOPRAZOLE 40 MG IV IVPush SCH (08:38)
[2020-03-20 12:58] VITALS: BP 105/70
[2020-03-20] MEDS ORDERED: OMNIPAQUE 350 MG/ML, 100ML BOTTLE ONE (13:07)
[2020-03-20] MEDS: MICAFUNGIN 100 MG in SODIUM CHLORIDE 0.9% 100 ML IV SCH (13:38)
[2020-03-20] MEDS: ENOXAPARIN 40 MG/0.4 ML SQ SCH (15:06)
[2020-03-20 19:06] VITALS: BP 126/78
[2020-03-20] MEDS: TRAZODONE 50MG TABLET PO PRN (22:30)
[2020-03-20] MEDS: DIPHENHYDRAMINE 50 MG CAPSULE PO PRN (22:30)
[2020-03-20] MEDS: INSULIN GLARGINE 100 UNITS/ML, PEN SQ-INSULIN SCH (22:33)
[2020-03-21] MEDS: PIPERACILLIN/TAZO/PMX 3.375GM 50 ML IV SCH ×4 (03:42→21:19)
[2020-03-21] MEDS: ACETAMINOPHEN 325 MG TABLET PO SCH ×4 (03:43→21:19)
[2020-03-21 03:55] VITALS: BP 136/85
[2020-03-21 05:08] LABS: BASOPHILS # (AUTO) 0.04 x10^3/uL (0-0.1); BASOPHILS % (AUTO) 1 % (0-1); EOSINOPHILS # (AUTO) 0.23 x10^3/uL (0-0.4); EOSINOPHILS % (AUTO) 4 % (1-7); LYMPHOCYTES # (AUTO) 1.37 x10^3/uL (1-3.4); LYMPHOCYTES % (AUTO) 26 % (22-44); MD NO; MEAN CORPUSCULAR HEMOGLOBIN 28.2 pg (27.0-34.8); MEAN CORPUSCULAR HGB CONC 32.1 g/dL (32.4-35.8); MEAN PLATELET VOLUME 7.8 fL (7.4-10.4); MONOCYTES # (AUTO) 0.55 x10^3/uL (0.2-0.8); MONOCYTES % (AUTO) 10 % (2-9); NEUTROPHILS # (AUTO) 3.16 x10^3/uL (1.8-6.8); NEUTROPHILS % (AUTO) 59 % (42-75); PLATELET COUNT 446 x10^3/uL (130-400); RED BLOOD COUNT 3.26 x10^6/uL (3.82-5.3)
[2020-03-21 05:12] LABS: ANION GAP 5 mmol/L (5-15); CALCIUM 8.6 mg/dL (8.5-10.1); CHLORIDE 104 mmol/L (98-107); CREATININE 0.61 mg/dL (0.55-1.02)
[2020-03-21] MEDS: CARVEDILOL 3.125 MG TABLET PO SCH ×2 (06:41→17:01)
[2020-03-21 06:45] VITALS: BP 131/75
[2020-03-21] MEDS: FERROUS SULFATE 325 MG TABLET PO SCH (07:31)
[2020-03-21] MEDS: INSULIN LISPRO 100 UNITS/ML, PEN SQ-INSULIN SCH ×4 (07:31→22:19)
[2020-03-21] MEDS: PANTOPRAZOLE 40 MG IV IVPush SCH (08:29)
[2020-03-21] MEDS: LISINOPRIL 10 MG TABLET PO SCH (08:30)
[2020-03-21] MEDS: LACTOBACILLUS CHEW TABLET PO SCH ×3 (08:30→21:19)
[2020-03-21] MEDS: MICAFUNGIN 100 MG in SODIUM CHLORIDE 0.9% 100 ML IV SCH (13:31)
[2020-03-21 14:39] VITALS: BP 135/87
[2020-03-21] MEDS: ENOXAPARIN 40 MG/0.4 ML SQ SCH (15:48)
[2020-03-21 18:52] VITALS: BP 146/82
[2020-03-21] MEDS ORDERED: TEMAZEPAM 15 MG CAPSULE PO PRN (21:30)
[2020-03-21] MEDS: INSULIN GLARGINE 100 UNITS/ML, PEN SQ-INSULIN SCH (22:19)
[2020-03-21] MEDS ORDERED: CATHFLO-ALTEPLASE 2 MG/2 ML CATHFLUSH ONE (23:00)
[2020-03-22 00:57] VITALS: BP 125/78
[2020-03-22] MEDS: PIPERACILLIN/TAZO/PMX 3.375GM 50 ML IV SCH ×4 (03:13→21:48)
[2020-03-22] MEDS: ACETAMINOPHEN 325 MG TABLET PO SCH ×4 (03:13→21:00)
[2020-03-22] MEDS: CARVEDILOL 3.125 MG TABLET PO SCH ×2 (06:03→17:59)
[2020-03-22 06:32] LABS: BASOPHILS # (AUTO) 0.04 x10^3/uL (0-0.1); BASOPHILS % (AUTO) 1 % (0-1); EOSINOPHILS # (AUTO) 0.18 x10^3/uL (0-0.4); EOSINOPHILS % (AUTO) 3 % (1-7); LYMPHOCYTES # (AUTO) 1.12 x10^3/uL (1-3.4); LYMPHOCYTES % (AUTO) 21 % (22-44); MD NO; MEAN CORPUSCULAR HEMOGLOBIN 28.1 pg (27.0-34.8); MEAN CORPUSCULAR HGB CONC 31.9 g/dL (32.4-35.8); MEAN PLATELET VOLUME 7.8 fL (7.4-10.4); MONOCYTES # (AUTO) 0.47 x10^3/uL (0.2-0.8); MONOCYTES % (AUTO) 9 % (2-9); NEUTROPHILS # (AUTO) 3.44 x10^3/uL (1.8-6.8); NEUTROPHILS % (AUTO) 66 % (42-75); PLATELET COUNT 436 x10^3/uL (130-400); RED BLOOD COUNT 3.33 x10^6/uL (3.82-5.3); RED CELL DISTRIBUTION WIDTH 20.5 % (9.6-15.2)
[2020-03-22 06:45] LABS: ANION GAP 9 mmol/L (5-15); CALCIUM 8.8 mg/dL (8.5-10.1); CHLORIDE 103 mmol/L (98-107)
[2020-03-22 06:48] LABS: CREATININE 0.45 mg/dL (0.55-1.02)
[2020-03-22 06:56] VITALS: BP 142/90
[2020-03-22] MEDS: INSULIN LISPRO 100 UNITS/ML, PEN SQ-INSULIN SCH ×4 (08:00→21:55)
[2020-03-22] MEDS: LACTOBACILLUS CHEW TABLET PO SCH ×3 (09:12→21:48)
[2020-03-22] MEDS: PANTOPRAZOLE 40 MG IV IVPush SCH (09:13)
[2020-03-22] MEDS: LISINOPRIL 10 MG TABLET PO SCH (09:13)
[2020-03-22 12:38] VITALS: BP 145/84
[2020-03-22] MEDS: MICAFUNGIN 100 MG in SODIUM CHLORIDE 0.9% 100 ML IV SCH (13:46)
[2020-03-22] MEDS: ENOXAPARIN 40 MG/0.4 ML SQ SCH (15:57)
[2020-03-22 17:40] VITALS: BP 156/87
[2020-03-22 19:19] VITALS: BP 134/79
[2020-03-22] MEDS: ALUMINUM/MAG/SIMETHICONE 30 ML UDC PO PRN (20:43)
[2020-03-22] MEDS: TEMAZEPAM 15 MG CAPSULE PO PRN (21:49)
[2020-03-22] MEDS: INSULIN GLARGINE 100 UNITS/ML, PEN SQ-INSULIN SCH (21:55)
[2020-03-23 00:50] VITALS: BP 135/81
[2020-03-23] MEDS: ACETAMINOPHEN 325 MG TABLET PO SCH ×4 (03:00→20:20)
[2020-03-23] MEDS: PIPERACILLIN/TAZO/PMX 3.375GM 50 ML IV SCH ×4 (03:25→20:21)
[2020-03-23] MEDS: CARVEDILOL 3.125 MG TABLET PO SCH ×2 (06:00→17:01)
[2020-03-23 06:16] LABS: ANION GAP 10 mmol/L (5-15); CALCIUM 8.4 mg/dL (8.5-10.1); CHLORIDE 101 mmol/L (98-107)
[2020-03-23 06:19] LABS: CREATININE 0.56 mg/dL (0.55-1.02)
[2020-03-23 06:24] LABS: BASOPHILS # (AUTO) 0.04 x10^3/uL (0-0.1); BASOPHILS % (AUTO) 1 % (0-1); EOSINOPHILS # (AUTO) 0.19 x10^3/uL (0-0.4); EOSINOPHILS % (AUTO) 3 % (1-7); LYMPHOCYTES # (AUTO) 1.28 x10^3/uL (1-3.4); LYMPHOCYTES % (AUTO) 20 % (22-44); MD NO; MEAN CORPUSCULAR HEMOGLOBIN 28.2 pg (27.0-34.8); MEAN CORPUSCULAR HGB CONC 31.9 g/dL (32.4-35.8); MEAN CORPUSCULAR VOLUME 88.4 fL (80-100); MEAN PLATELET VOLUME 8.2 fL (7.4-10.4); MONOCYTES # (AUTO) 0.48 x10^3/uL (0.2-0.8); MONOCYTES % (AUTO) 8 % (2-9); NEUTROPHILS # (AUTO) 4.38 x10^3/uL (1.8-6.8); NEUTROPHILS % (AUTO) 69 % (42-75); PLATELET COUNT 406 x10^3/uL (130-400); RED BLOOD COUNT 3.22 x10^6/uL (3.82-5.3)
[2020-03-23 07:46] VITALS: BP 131/85
[2020-03-23] MEDS: LISINOPRIL 10 MG TABLET PO SCH (08:04)
[2020-03-23] MEDS: PANTOPRAZOLE 40 MG IV IVPush SCH (08:04)
[2020-03-23] MEDS: FERROUS SULFATE 325 MG TABLET PO SCH (08:04)
[2020-03-23] MEDS: LACTOBACILLUS CHEW TABLET PO SCH ×3 (08:04→20:21)
[2020-03-23] MEDS: INSULIN LISPRO 100 UNITS/ML, PEN SQ-INSULIN SCH ×4 (08:14→20:24)
[2020-03-23] MEDS: MICAFUNGIN 100 MG in SODIUM CHLORIDE 0.9% 100 ML IV SCH (12:39)
[2020-03-23 13:12] VITALS: BP 138/87
[2020-03-23] MEDS: ENOXAPARIN 40 MG/0.4 ML SQ SCH (16:22)
[2020-03-23 19:23] VITALS: BP 150/94
[2020-03-23] MEDS: TEMAZEPAM 15 MG CAPSULE PO PRN (20:21)
[2020-03-23] MEDS: DIPHENHYDRAMINE 50 MG CAPSULE PO PRN (20:21)
[2020-03-23] MEDS: INSULIN GLARGINE 100 UNITS/ML, PEN SQ-INSULIN SCH (20:23)
[2020-03-24 02:52] VITALS: BP 146/84
[2020-03-24] MEDS: ACETAMINOPHEN 325 MG TABLET PO SCH ×4 (03:31→21:38)
[2020-03-24] MEDS: PIPERACILLIN/TAZO/PMX 3.375GM 50 ML IV SCH ×4 (03:31→21:38)
[2020-03-24 03:43] LABS: HCT (SEDRATE) 27.8 % (34.6-47.8)
[2020-03-24 03:46] LABS: BASOPHILS # (AUTO) 0.05 x10^3/uL (0-0.1); BASOPHILS % (AUTO) 1 % (0-1); EOSINOPHILS # (AUTO) 0.17 x10^3/uL (0-0.4); EOSINOPHILS % (AUTO) 4 % (1-7); LYMPHOCYTES # (AUTO) 1.43 x10^3/uL (1-3.4); LYMPHOCYTES % (AUTO) 30 % (22-44); MD NO; MEAN CORPUSCULAR HEMOGLOBIN 28.4 pg (27.0-34.8); MEAN CORPUSCULAR HGB CONC 32.4 g/dL (32.4-35.8); MEAN CORPUSCULAR VOLUME 87.6 fL (80-100); MEAN PLATELET VOLUME 8.1 fL (7.4-10.4); MONOCYTES # (AUTO) 0.51 x10^3/uL (0.2-0.8); MONOCYTES % (AUTO) 11 % (2-9); NEUTROPHILS # (AUTO) 2.59 x10^3/uL (1.8-6.8); NEUTROPHILS % (AUTO) 55 % (42-75); PLATELET COUNT 394 x10^3/uL (130-400); RED BLOOD COUNT 3.18 x10^6/uL (3.82-5.3); RED CELL DISTRIBUTION WIDTH 19.8 % (9.6-15.2)
[2020-03-24 03:50] LABS: ALBUMIN 2.3 g/dL (3.4-5.0); ANION GAP 6 mmol/L (5-15); CALCIUM 8.4 mg/dL (8.5-10.1); CHLORIDE 103 mmol/L (98-107)
[2020-03-24 03:58] LABS: ALANINE AMINOTRANSFERASE 13 U/L (12-78); ALKALINE PHOSPHATASE 118 U/L (45-117); BILIRUBIN,TOTAL 0.5 mg/dL (0.2-1.0); CREATININE 0.53 mg/dL (0.55-1.02); TOTAL PROTEIN 6.5 g/dL (6.4-8.2)
[2020-03-24] MEDS: PANTOPRAZOLE 40MG TABLET PO SCH (06:00)
[2020-03-24] MEDS: CARVEDILOL 3.125 MG TABLET PO SCH ×2 (06:00→17:37)
[2020-03-24 06:33] VITALS: BP 138/85
[2020-03-24] MEDS: INSULIN LISPRO 100 UNITS/ML, PEN SQ-INSULIN SCH ×4 (07:17→21:39)
[2020-03-24] MEDS: LACTOBACILLUS CHEW TABLET PO SCH ×3 (09:00→21:38)
[2020-03-24] MEDS ORDERED: CHLORHEXIDINE 15 ML UDC MM ONE (09:30)
[2020-03-24] MEDS ORDERED: DEXAMETHASONE 4 MG/ML, 1ML ONE (09:37)
[2020-03-24] MEDS ORDERED: GLYCOPYRROLATE 0.2MG/1ML, 5ML ONE (09:37)
[2020-03-24] MEDS ORDERED: SUCCINYLCHOLINE 20 MG/ML, 10ML ONE (09:37)
[2020-03-24] MEDS ORDERED: ROCURONIUM 10MG/ML,5ML ONE (09:37)
[2020-03-24] MEDS ORDERED: PROPOFOL 10 MG/ML, 20ML ONE (09:37)
[2020-03-24] MEDS ORDERED: CEFAZOLIN 1,000 MG ONE (09:37)
[2020-03-24] MEDS ORDERED: ONDANSETRON 2MG/ML, 2ML ONE (09:37)
[2020-03-24] MEDS ORDERED: NEOSTIGMINE 1 MG/ML, 10ML ONE (09:37)
[2020-03-24] MEDS ORDERED: FENTANYL PF 100 MCG/2ML ONE ×2 (09:40→11:04)
[2020-03-24] MEDS ORDERED: MIDAZOLAM 1 MG/ML, 2ML ONE (09:40)
[2020-03-24] MEDS ORDERED: FENTANYL PF 100 MCG/2ML IV PRN (10:00)
[2020-03-24] MEDS ORDERED: EPHEDRINE 50 MG/ML, 1ML ONE (10:11)
[2020-03-24 13:01] VITALS: BP 128/77
[2020-03-24] MEDS: LISINOPRIL 10 MG TABLET PO SCH (13:13)
[2020-03-24 13:59] LABS: INTERNATIONAL NORMALIZED RATIO 1.02 (0.93-1.1); PROTHROMBIN TIME 10.8 Seconds (9.6-11.5)
[2020-03-24] MEDS: MICAFUNGIN 100 MG in SODIUM CHLORIDE 0.9% 100 ML IV SCH (14:36)
[2020-03-24] MEDS: ENOXAPARIN 40 MG/0.4 ML SQ SCH ×2 (15:59→16:00)
[2020-03-24 19:23] VITALS: BP 126/81
[2020-03-24] MEDS: TEMAZEPAM 15 MG CAPSULE PO PRN (21:38)
[2020-03-24] MEDS: DIPHENHYDRAMINE 50 MG CAPSULE PO PRN (21:38)
[2020-03-24] MEDS: INSULIN GLARGINE 100 UNITS/ML, PEN SQ-INSULIN SCH (21:40)
[2020-03-24 23:34] VITALS: BP 113/62
[2020-03-25 04:23] VITALS: BP 145/83
[2020-03-25] MEDS: ACETAMINOPHEN 325 MG TABLET PO SCH ×4 (04:27→20:39)
[2020-03-25] MEDS: PIPERACILLIN/TAZO/PMX 3.375GM 50 ML IV SCH ×4 (04:28→21:49)
[2020-03-25 05:05] LABS: BASOPHILS # (AUTO) 0.07 x10^3/uL (0-0.1); BASOPHILS % (AUTO) 1 % (0-1); EOSINOPHILS % (AUTO) 4 % (1-7); LYMPHOCYTES # (AUTO) 1.18 x10^3/uL (1-3.4); LYMPHOCYTES % (AUTO) 24 % (22-44); MD NO; MEAN CORPUSCULAR HEMOGLOBIN 28.9 pg (27.0-34.8); MEAN CORPUSCULAR HGB CONC 32.8 g/dL (32.4-35.8); MEAN CORPUSCULAR VOLUME 87.9 fL (80-100); MEAN PLATELET VOLUME 8.2 fL (7.4-10.4); MONOCYTES # (AUTO) 0.61 x10^3/uL (0.2-0.8); MONOCYTES % (AUTO) 12 % (2-9); NEUTROPHILS # (AUTO) 2.94 x10^3/uL (1.8-6.8); NEUTROPHILS % (AUTO) 59 % (42-75); PLATELET COUNT 388 x10^3/uL (130-400); RED BLOOD COUNT 3.23 x10^6/uL (3.82-5.3); RED CELL DISTRIBUTION WIDTH 20.1 % (9.6-15.2)
[2020-03-25 05:11] LABS: CALCIUM 8.6 mg/dL (8.5-10.1); CREATININE 0.56 mg/dL (0.55-1.02)
[2020-03-25 05:20] LABS: ANION GAP 6 mmol/L (5-15); CHLORIDE 102 mmol/L (98-107)
[2020-03-25] MEDS: CARVEDILOL 3.125 MG TABLET PO SCH ×2 (06:24→17:54)
[2020-03-25] MEDS: PANTOPRAZOLE 40MG TABLET PO SCH (06:24)
[2020-03-25] MEDS: INSULIN LISPRO 100 UNITS/ML, PEN SQ-INSULIN SCH ×4 (07:02→20:40)
[2020-03-25] MEDS: FERROUS SULFATE 325 MG TABLET PO SCH (07:02)
[2020-03-25 07:48] VITALS: BP 129/78
[2020-03-25] MEDS: LACTOBACILLUS CHEW TABLET PO SCH ×3 (08:47→20:39)
[2020-03-25] MEDS: LISINOPRIL 10 MG TABLET PO SCH (08:48)
[2020-03-25 12:44] VITALS: BP 117/63
[2020-03-25] MEDS: MICAFUNGIN 100 MG in SODIUM CHLORIDE 0.9% 100 ML IV SCH (13:17)
[2020-03-25] MEDS: ENOXAPARIN 40 MG/0.4 ML SQ SCH (16:17)
[2020-03-25 18:49] VITALS: BP 147/84
[2020-03-25] MEDS: INSULIN GLARGINE 100 UNITS/ML, PEN SQ-INSULIN SCH (20:40)
[2020-03-25] MEDS: TEMAZEPAM 15 MG CAPSULE PO PRN (21:53)
[2020-03-25] MEDS: DIPHENHYDRAMINE 50 MG CAPSULE PO PRN (21:53)
[2020-03-26 03:48] VITALS: BP 132/84
[2020-03-26] MEDS: PIPERACILLIN/TAZO/PMX 3.375GM 50 ML IV SCH ×3 (03:54→16:41)
[2020-03-26] MEDS: ACETAMINOPHEN 325 MG TABLET PO SCH ×3 (03:54→15:35)
[2020-03-26 04:32] LABS: BASOPHILS # (AUTO) 0.06 x10^3/uL (0-0.1); BASOPHILS % (AUTO) 1 % (0-1); EOSINOPHILS # (AUTO) 0.16 x10^3/uL (0-0.4); EOSINOPHILS % (AUTO) 3 % (1-7); LYMPHOCYTES # (AUTO) 1.33 x10^3/uL (1-3.4); LYMPHOCYTES % (AUTO) 28 % (22-44); MD NO; MEAN CORPUSCULAR HEMOGLOBIN 28.5 pg (27.0-34.8); MEAN CORPUSCULAR HGB CONC 32.5 g/dL (32.4-35.8); MEAN CORPUSCULAR VOLUME 87.8 fL (80-100); MEAN PLATELET VOLUME 8.6 fL (7.4-10.4); MONOCYTES # (AUTO) 0.56 x10^3/uL (0.2-0.8); MONOCYTES % (AUTO) 12 % (2-9); NEUTROPHILS # (AUTO) 2.63 x10^3/uL (1.8-6.8); NEUTROPHILS % (AUTO) 56 % (42-75); PLATELET COUNT 370 x10^3/uL (130-400); RED BLOOD COUNT 3.23 x10^6/uL (3.82-5.3); RED CELL DISTRIBUTION WIDTH 19.1 % (9.6-15.2)
[2020-03-26 04:39] LABS: ANION GAP 8 mmol/L (5-15); CALCIUM 8.7 mg/dL (8.5-10.1); CHLORIDE 105 mmol/L (98-107); CREATININE 0.53 mg/dL (0.55-1.02)
[2020-03-26] MEDS: CARVEDILOL 3.125 MG TABLET PO SCH ×2 (06:14→18:08)
[2020-03-26] MEDS: PANTOPRAZOLE 40MG TABLET PO SCH (06:14)
[2020-03-26 07:25] VITALS: BP 131/83
[2020-03-26] MEDS: LISINOPRIL 10 MG TABLET PO SCH (08:51)
[2020-03-26] MEDS: LACTOBACILLUS CHEW TABLET PO SCH ×2 (08:51→16:41)
[2020-03-26] MEDS: INSULIN LISPRO 100 UNITS/ML, PEN SQ-INSULIN SCH ×3 (08:52→16:42)
[2020-03-26 13:21] VITALS: BP 146/86
[2020-03-26] MEDS: MICAFUNGIN 100 MG in SODIUM CHLORIDE 0.9% 100 ML IV SCH (15:35)
[2020-03-26] MEDS: ENOXAPARIN 40 MG/0.4 ML SQ SCH (16:42)
[2020-03-26] MEDS ORDERED: ACET325T26 PO (18:40)
[2020-03-26] MEDS ORDERED: ONDA4VIA60 IV (18:40)
[2020-03-26] MEDS ORDERED: TRAM50TA2 PO (18:40)
[2020-03-26] MEDS ORDERED: PIPE3.373 IV (18:40)
[2020-03-26] MEDS ORDERED: INSU100I11 SQ-INSULIN (18:40)
[2020-03-26] MEDS ORDERED: PANT40TA5 PO (18:40)
[2020-03-26] MEDS ORDERED: MICA100V3 IV (18:40)
[2020-03-26] MEDS ORDERED: INSU100I13 SQ-INSULIN (18:40)
[2020-03-26] MEDS ORDERED: ENOX40SY4 SQ (18:40)
[2020-03-26] MEDS ORDERED: FERR-51 PO (18:40)
[2020-03-26] MEDS ORDERED: LACT10SO24 PO (18:40)
[2020-03-26] MEDS ORDERED: OXYC5TAB3 PO (18:40)
[2020-03-26] MEDS ORDERED: ACID1TAB7 PO (18:40)
[2020-03-26] MEDS ORDERED: TEMA15CA6 PO (18:40)
[2020-03-26] MEDS ORDERED: CARV3.1212 PO (18:40)
[2020-03-26 19:43] VITALS: BP 143/83
== END 2020-03-26 20:34 | DRG 871 ==
LOC: ED 08:47 → EDIP 11:09 → CCU 12:44 → 4NE 02-19 12:49
PROVIDERS: ADMIT Internal Medicine; ATTEND Hospitalist
PROC: 0W9F30Z Drainage of Abdominal Wall with Drainage Device, Percutaneous Approach (ICD-10-PCS; 2020-02-17)
PROC: 02HV33Z Insertion of Infusion Device into Superior Vena Cava, Percutaneous Approach (ICD-10-PCS; 2020-02-17)
PROC: B548ZZA Ultrasonography of Superior Vena Cava, Guidance (ICD-10-PCS; 2020-02-17)
PROC: 0T9B70Z Drainage of Bladder with Drainage Device, Via Natural or Artificial Opening (ICD-10-PCS; 2020-02-17)
PROC: 0D768DZ Dilation of Stomach with Intraluminal Device, Via Natural or Artificial Opening Endoscopic (ICD-10-PCS; principal; 2020-02-20 14:15)
PROC: 0W9F30Z Drainage of Abdominal Wall with Drainage Device, Percutaneous Approach (ICD-10-PCS; 2020-02-25)
PROC: 0W9F30Z Drainage of Abdominal Wall with Drainage Device, Percutaneous Approach (ICD-10-PCS; 2020-03-01)
PROC: 0S9B3ZZ Drainage of Left Hip Joint, Percutaneous Approach (ICD-10-PCS; 2020-03-11)
PROC: BD42ZZZ Ultrasonography of Stomach (ICD-10-PCS; 2020-03-24)
PROC: 0FPD8DZ Removal of Intraluminal Device from Pancreatic Duct, Via Natural or Artificial Opening Endoscopic (ICD-10-PCS; 2020-03-24)
PROC: 0F7D8DZ Dilation of Pancreatic Duct with Intraluminal Device, Via Natural or Artificial Opening Endoscopic (ICD-10-PCS; 2020-03-24)
DX: A41.59 Other Gram-negative sepsis (principal); E11.10 Type 2 diabetes mellitus with ketoacidosis without coma; E43 Unspecified severe protein-calorie malnutrition; G93.41 Metabolic encephalopathy; J18.1 Lobar pneumonia, unspecified organism; J96.01 Acute respiratory failure with hypoxia; K68.19 Other retroperitoneal abscess; K68.12 Psoas muscle abscess; N17.0 Acute kidney failure with tubular necrosis; R65.21 Severe sepsis with septic shock; E87.1 Hypo-osmolality and hyponatremia; K86.2 Cyst of pancreas; K86.3 Pseudocyst of pancreas; D64.9 Anemia, unspecified; E11.649 Type 2 diabetes mellitus with hypoglycemia without coma; E66.9 Obesity, unspecified; E83.39 Other disorders of phosphorus metabolism; E83.42 Hypomagnesemia; E87.6 Hypokalemia; F10.10 Alcohol abuse, uncomplicated; G40.901 Epilepsy, unspecified, not intractable, with status epilepticus; I10 Essential (primary) hypertension; I48.0 Paroxysmal atrial fibrillation; I86.4 Gastric varices; K70.9 Alcoholic liver disease, unspecified; N73.9 Female pelvic inflammatory disease, unspecified; Z79.2 Long term (current) use of antibiotics; Z79.4 Long term (current) use of insulin; Z80.9 Family history of malignant neoplasm, unspecified; Z87.891 Personal history of nicotine dependence; Z93.1 Gastrostomy status; Z20.828 Contact with and (suspected) exposure to other viral communicable diseases; G89.29 Other chronic pain; N84.0 Polyp of corpus uteri; Z68.24 Body mass index [BMI] 24.0-24.9, adult
CPT/HCPCS: 36415; 36600; 74328; 75989; 84145; 87106; 96361; 96365; 96368; 96375; 99291; J3490; 36573; 47537; 49405; 49406; 49423; 70450; 71045; 74176; 74177; 80048; 80053; 80069; 80307; 81003; 82010; 82140; 82533; 82550; 82803; 82962; 83036; 83540; 83550; 83605; 83690; 83735; 83930; 84100; 84484; 84703; 85025; 85610; 85651; 86140; 87040; 87070; 87075; 87077; 87081; 87102; 87186; 87205; 87324; 93005; 93306; 99156; 99157; C1894; G0378; J0153; J0690; J1100; J1650; J1815; J2020; J2248; J2250; J2405; J2543; J2704; J2710; J2997; J3010; J3480; J7060; Q9967; C1729; C1751; C1769; C2625; C9113; J0282; J0330; J2270; J2310; J2370; J3475; J7030; J7040; J7050; J7120; U0001-CS

== ENCOUNTER 2020-04-21 12:02 | Emergency (ER) | payer MEDICAID ==
[~2020-04-21] VITALS: Ht 160 cm; Wt 61.5 kg
[~2020-04-21 12:02] MED LIST changes: +ACET325T26 PO; +ACID1TAB7 PO; +CARV3.1212 PO; +CIPR500T3 PO; +ENOX40SY4 SQ; +FERR-51 PO; +HYDR50TA99 PO; +LACT10SO24 PO; +LISI-420 PO; +MICA100V3 IV; +MULT-449 PO; -MULT1TAB60 PO; +ONDA4VIA60 IV; +OXYC5TAB3 PO; +PANT40TA5 PO; +PIPE3.373 IV; +TEMA15CA6 PO; +TRAM50TA2 PO
--- NOTE | 2020-04-21 12:31 | NUR ---
pt brought from infusion room for c/o bilateral chest pain radiating to bilateral shoulders x 3 weeks, intermittent in nature, but worsening gradually. report received from risk engineer. pt denies assoc symptoms, states pain worse with exertion/movement. pt receiving daily micafungin infusions for numerous peritoneal abcesses. ekg taken on arrival, pt attached to all monitors. pt a&o, resps even and unlabored, nsr on cooking casing and drying supervisor with no ectopy. pt infusing micafungin at 100ml/hr on arrival to ED. awaiting ERMD and orders at this time.
[2020-04-21 13:32] LABS: ALANINE AMINOTRANSFERASE 17 U/L (12-78); ALBUMIN 3.5 g/dL (3.4-5.0); ANION GAP 7 mmol/L (5-15); CALCIUM 9.8 mg/dL (8.5-10.1); CHLORIDE 96 mmol/L (98-107); CREATININE 1.01 mg/dL (0.55-1.02)
[2020-04-21 13:37] LABS: ALKALINE PHOSPHATASE 131 U/L (45-117); BILIRUBIN,TOTAL 0.3 mg/dL (0.2-1.0); TROPONIN I < 0.015 ng/mL (0.000-0.045)
[2020-04-21 13:52] LABS: BASOPHILS # (AUTO) 0.03 x10^3/uL (0-0.1); BASOPHILS % (AUTO) 0 % (0-1); EOSINOPHILS # (AUTO) 0.01 x10^3/uL (0-0.4); EOSINOPHILS % (AUTO) 0 % (1-7); LYMPHOCYTES # (AUTO) 1.39 x10^3/uL (1-3.4); LYMPHOCYTES % (AUTO) 12 % (22-44); MD NO; MEAN CORPUSCULAR HEMOGLOBIN 27.3 pg (27.0-34.8); MEAN CORPUSCULAR HGB CONC 32.5 g/dL (32.4-35.8); MEAN PLATELET VOLUME 8.1 fL (7.4-10.4); MONOCYTES % (AUTO) 7 % (2-9); NEUTROPHILS # (AUTO) 9.76 x10^3/uL (1.8-6.8); NEUTROPHILS % (AUTO) 81 % (42-75); PLATELET COUNT 401 x10^3/uL (130-400); RED BLOOD COUNT 4.77 x10^6/uL (3.82-5.3); RED CELL DISTRIBUTION WIDTH 15.8 % (9.6-15.2)
--- NOTE | 2020-04-21 14:23 | NUR ---
REPORT FROM ELY BOTELLO. PT CARE RESPONSIBILITIES ASSUMED.
[2020-04-21] MEDS ORDERED: ONDANSETRON 2MG/ML, 2ML ONE (14:25)
[2020-04-21] MEDS ORDERED: MORPHINE SULFATE 4 MG/ML, 1ML ONE (14:25)
[2020-04-21] MEDS: MORPHINE SULFATE 4 MG/ML, 1ML IVPush PRN ×2 (14:27→15:15)
[2020-04-21] MEDS ORDERED: ONDANSETRON 2MG/ML, 2ML IVPush ONE (14:30)
--- NOTE | 2020-04-21 14:30 | NUR ---
PT MEDICATED PER MAR. DENIES ANY FURTHER NEEDS OR CONCERNS. CALL LIGHT IN REACH.
[2020-04-21] MEDS ORDERED: SODIUM CHLORIDE 0.9% 1,000ML IVBOLUS ONE (15:00)
[2020-04-21 15:32] VITALS: BP 116/45
--- NOTE | 2020-04-21 15:37 | NUR ---
report has been given to ELY Kasper who assumed care. ALEXANDRA Rajput has consulted ID who asked that RN withdraw PICC line 2cm as this may be cause of pt's discomfort. ALEXANDRA Rajput requested RN complete this request. This RN withdrew PICC line exactly 2 cm and applied new sterile dressing, sterile technique maintained. Both lumens flush with blood return. Per ERP, RN ok'd to use for IVF and morphine push. pt states pain level down from 7/10 to 6/10 after first dose morphine, requests second dose. pt medicated per emar, tolerated well. all monitors remain in place, pt is nsr on cardiac montior with rare pvc noted. primary ELY Kasper updated.
[2020-04-21] MEDS ORDERED: KETOROLAC 30 MG/1 ML ONE (17:16)
[2020-04-21] MEDS ORDERED: KETOROLAC 30 MG/1 ML IVPush ONE (17:30)
== END 2020-04-21 17:58 | disposition home or self-care (01) ==
LOC: ED 13:55
DX: R07.89 Other chest pain (principal); I31.3 Pericardial effusion (noninflammatory); J98.11 Atelectasis; R94.31 Abnormal electrocardiogram [ECG] [EKG]; E11.9 Type 2 diabetes mellitus without complications
CPT/HCPCS: 36415; 71045; 80053; 83605; 84145; 84484; 85025; 87040; 93005; 93306; 96374; 96375; 96376; 99285; J1885; J2270; J2405; J7030

== ENCOUNTER → 2020-04-22 | Outpatient (CLI) | payer MEDICAID ==
[~2020-04-22] MED LIST changes: +OMNIPAQUE 350 MG/ML, 100ML BOTTLE ONE
== END | disposition home or self-care (01) ==
LOC: RAD 10:32
PROVIDERS: ATTEND Internal Medicine Infectious Disease
DX: K86.2 Cyst of pancreas (principal); K65.1 Peritoneal abscess; J90 Pleural effusion, not elsewhere classified; D25.9 Leiomyoma of uterus, unspecified; K76.9 Liver disease, unspecified
CPT/HCPCS: 74177; Q9967

== ENCOUNTER 2020-04-30 09:07 | Day surgery (SDC) | payer MEDICAID ==
[~2020-04-30] VITALS: Ht 160 cm; Wt 61.9 kg
[~2020-04-30 09:07] MED LIST changes: -OMNIPAQUE 350 MG/ML, 100ML BOTTLE ONE
[2020-04-30 09:46] VITALS: BP 90/57
[2020-04-30] MEDS ORDERED: LISI-170 PO (09:56)
[2020-04-30] MEDS ORDERED: HYDR-3245 PO (09:56)
[2020-04-30] MEDS ORDERED: INSU100V34 SQ (09:56)
[2020-04-30] MEDS ORDERED: MULT-658 PO (09:56)
[2020-04-30] MEDS ORDERED: HYDR50TA99 PO (09:56)
[2020-04-30] MEDS ORDERED: METO50TA82 PO (09:56)
[2020-04-30] MEDS ORDERED: DILTIAZEM PO (09:56)
[2020-04-30] MEDS ORDERED: FAMO20TA7 PO (09:56)
[2020-04-30] MEDS ORDERED: POTA20PA31 PO (09:56)
[2020-04-30] MEDS ORDERED: INSU100I34 SQ (09:56)
[2020-04-30] MEDS ORDERED: MAGNESIUM OXIDE PO (09:56)
[2020-04-30] MEDS ORDERED: CHLO25TA PO (09:56)
[2020-04-30] MEDS ORDERED: SODIUM CHLORIDE 0.9% 1,000 ML IV SCH (10:00)
[2020-04-30] MEDS ORDERED: NALOXONE 1 MG/ML, 2ML ONE (10:33)
[2020-04-30] MEDS ORDERED: MIDAZOLAM 1 MG/ML, 5ML ONE (10:33)
[2020-04-30] MEDS ORDERED: FLUMAZENIL 0.1 MG/1 ML, 5ML ONE (10:33)
[2020-04-30] MEDS ORDERED: FENTANYL PF 100 MCG/2ML ONE ×2 (10:33)
[2020-04-30] MEDS ORDERED: LIDOCAINE 1%, 10ML ONE ×2 (10:37→10:38)
== END 2020-04-30 12:50 | disposition home or self-care (01) ==
LOC: OUT 09:07 → EDSTATUS 11:00 → OUT 12:50
PROVIDERS: ATTEND Surgery
DX: K68.19 Other retroperitoneal abscess (principal); Z11.59 Encounter for screening for other viral diseases; K85.20 Alcohol induced acute pancreatitis without necrosis or infection; I10 Essential (primary) hypertension; E11.9 Type 2 diabetes mellitus without complications; I48.91 Unspecified atrial fibrillation; Z79.4 Long term (current) use of insulin; Z79.891 Long term (current) use of opiate analgesic; Z79.899 Other long term (current) drug therapy; Z87.891 Personal history of nicotine dependence; Z80.9 Family history of malignant neoplasm, unspecified
CPT/HCPCS: 10030; 87070; 87075; 87076; 87077; 87106; 87186; 87205; 99156; 99157; C1729; C1769; J2250; J3010; J7030; 75989; J2310

== ENCOUNTER 2020-05-14 17:58 | Observation (INO) | payer MEDICAID ==
[~2020-05-14] VITALS: Ht 160 cm; Wt 62.9 kg
[~2020-05-14 17:58] MED LIST changes: +DILTIAZEM PO; +HYDR-3245 PO; +INSU100I34 SQ; +INSU100V34 SQ; +MAGNESIUM OXIDE PO; +POTA20PA31 PO
--- NOTE | 2020-05-14 18:37 | NUR ---
PT TO ROOM 15 W/ C/O CP STARTED 2 WEEKS AGO. PT STATES "WHEN I LAY DOWN AND RELAX IT'S OKAY BUT WHEN I TRY AND GET UP IT GETS WORSE AGAIN". PT STATES SHE HAS NEVER HAD A STRESS TEST BEFORE. PT DENIES INDIGESTION AND MID CLAVICULAR BACK PAIN. PT RESTING ON GURNEY. NADN. MONITORS APPLIED. EKG COMPLETED. ERP DR. LONG AT BEDSIDE DISCUSSING EKG'S W/ PT.
[2020-05-14] MEDS ORDERED: ASPIRIN 81 MG TABLET CHEW ONE (18:53)
[2020-05-14] MEDS ORDERED: NITROGLYCERIN SINGLE TAB 0.4 MG SL ONE (18:53)
[2020-05-14] MEDS ORDERED: SODIUM CHLORIDE FLUSH 10ML SYR IVF ONE (19:00)
[2020-05-14] MEDS ORDERED: ASPIRIN 81 MG TABLET CHEW PO ONE (19:00)
[2020-05-14] MEDS ORDERED: NITROGLYCERIN SINGLE TAB 0.4 MG SL PRN (19:00)
[2020-05-14 19:02] LABS: BASOPHILS # (AUTO) 0.03 x10^3/uL (0-0.1); BASOPHILS % (AUTO) 0 % (0-1); EOSINOPHILS # (AUTO) 0.03 x10^3/uL (0-0.4); EOSINOPHILS % (AUTO) 0 % (1-7); LYMPHOCYTES # (AUTO) 1.67 x10^3/uL (1-3.4); LYMPHOCYTES % (AUTO) 15 % (22-44); MD NO; MEAN CORPUSCULAR HEMOGLOBIN 26.2 pg (27.0-34.8); MEAN CORPUSCULAR HGB CONC 32.5 g/dL (32.4-35.8); MEAN CORPUSCULAR VOLUME 80.8 fL (80-100); MEAN PLATELET VOLUME 7.7 fL (7.4-10.4); MONOCYTES # (AUTO) 0.77 x10^3/uL (0.2-0.8); MONOCYTES % (AUTO) 7 % (2-9); NEUTROPHILS # (AUTO) 8.63 x10^3/uL (1.8-6.8); NEUTROPHILS % (AUTO) 78 % (42-75); PLATELET COUNT 475 x10^3/uL (130-400); RED BLOOD COUNT 5.34 x10^6/uL (3.82-5.3); RED CELL DISTRIBUTION WIDTH 16.8 % (9.6-15.2)
--- NOTE | 2020-05-14 19:02 | NUR ---
BEDSIDE REPORT FROM COMPA GRAVES.
--- NOTE | 2020-05-14 19:05 | NUR ---
PT MEDICATED PER JAN. PT BP DECREASED TO SBP 60'S. PT TRENDELENBURGED. BP IMPROVED. ERP DR. LONG NOTIFIED. 500 ML BOLUS INITIATED PER ERP.
[2020-05-14 19:08] LABS: ALANINE AMINOTRANSFERASE 18 U/L (12-78); ALBUMIN 3.6 g/dL (3.4-5.0); ANION GAP 7 mmol/L (5-15); CALCIUM 10.2 mg/dL (8.5-10.1); CHLORIDE 95 mmol/L (98-107); CREATININE 0.76 mg/dL (0.55-1.02)
--- NOTE | 2020-05-14 19:09 | NUR ---
REPORT GIVEN TO NANCY MAZA RN.
[2020-05-14 19:12] LABS: ALKALINE PHOSPHATASE 115 U/L (45-117); BILIRUBIN,TOTAL 0.3 mg/dL (0.2-1.0); TOTAL PROTEIN 8.7 g/dL (6.4-8.2); TROPONIN I < 0.015 ng/mL (0.000-0.045)
[2020-05-14] MEDS ORDERED: SODIUM CHLORIDE 0.9% 1,000ML IVBOLUS ONE (20:00)
--- NOTE | 2020-05-14 20:12 | NUR ---
HOSPITALIST AT BEDSIDE.
[2020-05-14] MEDS ORDERED: ACETAMINOPHEN 325 MG TABLET PO PRN (21:00)
[2020-05-14] MEDS ORDERED: HYDROcodone/APAP 5/325 TABLET PO PRN (21:00)
[2020-05-14] MEDS ORDERED: DOCUSATE 100 MG CAPSULE PO PRN (21:00)
[2020-05-14] MEDS ORDERED: hydrALAzine 20 MG/ML, 1ML IVPush PRN (21:00)
[2020-05-14] MEDS ORDERED: NITROGLYCERIN 0.4 MG BOTTLE (25 TABS) SL PRN (21:00)
[2020-05-14] MEDS ORDERED: METHOCARBAMOL 500 MG TABLET PO PRN (21:00)
[2020-05-14] MEDS ORDERED: INSULIN GLARGINE 100 UNITS/ML, PEN SQ-INSULIN SCH (21:00)
[2020-05-14] MEDS ORDERED: KETOROLAC 30 MG/1 ML IM PRN (21:00)
[2020-05-14] MEDS ORDERED: NITROGLYCERIN 0.4 MG/SPRAY SL PRN (21:00)
[2020-05-14] MEDS ORDERED: ONDANSETRON 2MG/ML, 2ML IVPush PRN (21:00)
--- NOTE | 2020-05-14 21:00 | NUR ---
REPORT GIVEN TO NANNETTE GRAVES.
[2020-05-14] MEDS ORDERED: OMNIPAQUE 350 MG/ML, 75ML BOTTLE ONE (21:07)
[2020-05-14] MEDS ORDERED: HYDROcodone/APAP 5/325 TABLET ONE (21:18)
[2020-05-14] MEDS ORDERED: morphine SULFATE 10 MG/ML, 1ML ONE (21:18)
[2020-05-14] MEDS: morphine SULFATE 10 MG/ML, 1ML IVPush PRN (21:22)
[2020-05-14 21:30] VITALS: BP 107/82
[2020-05-14] MEDS: SODIUM CHLORIDE 0.9% 1,000 ML IV SCH (22:41)
[2020-05-14] MEDS: ENOXAPARIN 40 MG/0.4 ML SQ SCH ×2 (22:42→22:44)
[2020-05-14] MEDS: INSULIN LISPRO 100 UNITS/ML, PEN SQ-INSULIN SCH (23:01)
[2020-05-15] VITALS (7 sets, daily range): BP systolic 88–120; BP diastolic 46–78
[2020-05-15 02:08] LABS: TROPONIN I < 0.015 ng/mL (0.000-0.045)
[2020-05-15] MEDS: morphine SULFATE 10 MG/ML, 1ML IVPush PRN (02:40)
[2020-05-15] MEDS ORDERED: FENTANYL PF 100 MCG/2ML ONE (03:26)
[2020-05-15] MEDS ORDERED: TICAGRELOR 90 MG TABLET ONE (03:26)
[2020-05-15] MEDS ORDERED: MIDAZOLAM 1 MG/ML, 5ML ONE (03:26)
[2020-05-15] MEDS ORDERED: LIDOCAINE 2%, 20ML ONE (03:27)
[2020-05-15] MEDS ORDERED: BIVALIRUDIN 250 MG ONE (03:27)
[2020-05-15] MEDS ORDERED: VERAPAMIL 2.5 MG/ML, 2ML ONE (03:27)
[2020-05-15] MEDS ORDERED: HEPARIN 1,000 UNITS/ML, 10ML ONE (03:27)
[2020-05-15] MEDS ORDERED: SODIUM CHLORIDE 0.9% 1,000 ML IV SCH (04:06)
[2020-05-15 06:05] LABS: BASOPHILS # (AUTO) 0.04 x10^3/uL (0-0.1); BASOPHILS % (AUTO) 0 % (0-1); EOSINOPHILS # (AUTO) 0.05 x10^3/uL (0-0.4); EOSINOPHILS % (AUTO) 1 % (1-7); LYMPHOCYTES % (AUTO) 26 % (22-44); MD NO; MEAN CORPUSCULAR HEMOGLOBIN 26.1 pg (27.0-34.8); MEAN CORPUSCULAR HGB CONC 32.4 g/dL (32.4-35.8); MEAN CORPUSCULAR VOLUME 80.6 fL (80-100); MEAN PLATELET VOLUME 8.3 fL (7.4-10.4); MONOCYTES # (AUTO) 0.63 x10^3/uL (0.2-0.8); MONOCYTES % (AUTO) 8 % (2-9); NEUTROPHILS # (AUTO) 5.43 x10^3/uL (1.8-6.8); NEUTROPHILS % (AUTO) 65 % (42-75); PLATELET COUNT 319 x10^3/uL (130-400); RED BLOOD COUNT 4.46 x10^6/uL (3.82-5.3); RED CELL DISTRIBUTION WIDTH 16.7 % (9.6-15.2)
[2020-05-15 06:11] LABS: ANION GAP 5 mmol/L (5-15); CALCIUM 9.3 mg/dL (8.5-10.1); CHLORIDE 100 mmol/L (98-107); CREATININE 0.78 mg/dL (0.55-1.02)
[2020-05-15 06:14] LABS: TROPONIN I 0.032 ng/mL (0.000-0.045)
[2020-05-15] MEDS ORDERED: KETOROLAC 30 MG/1 ML IVPush PRN (07:00)
[2020-05-15] MEDS: SODIUM CHLORIDE 0.9% 1,000 ML IV SCH (08:05)
[2020-05-15] MEDS: INSULIN LISPRO 100 UNITS/ML, PEN SQ-INSULIN SCH (08:19)
[2020-05-15] MEDS ORDERED: HYDROcodone/APAP 5/325 TABLET PO PRN (09:00)
[2020-05-15] MEDS ORDERED: FAMOTIDINE 20 MG TABLET PO SCH (09:00)
[2020-05-15] MEDS ORDERED: MULTIVITAMIN 1 TABLET PO SCH (09:00)
[2020-05-15] MEDS ORDERED: LISINOPRIL 20 MG TABLET PO SCH (09:00)
[2020-05-15] MEDS ORDERED: METOPROLOL TARTRATE 50 MG TAB PO SCH (09:00)
[2020-05-15] MEDS ORDERED: LACTOBACILLUS CHEW TABLET PO SCH (09:00)
[2020-05-15] MEDS ORDERED: CHLORTHALIDONE 25 MG TABLET PO SCH (09:00)
[2020-05-15] MEDS ORDERED: POTASSIUM CHLORIDE 20 MEQ TAB.ER.PRT PO SCH (09:00)
[2020-05-15] MEDS ORDERED: ACETAMINOPHEN 325 MG TABLET PO PRN (09:00)
[2020-05-15] MEDS ORDERED: CARV3.1212 PO (10:30)
[2020-05-15] MEDS ORDERED: ACID1TAB7 PO (10:30)
[2020-05-15] MEDS ORDERED: INSU100I11 SQ-INSULIN (10:30)
[2020-05-15] MEDS ORDERED: ACET325T26 PO (10:30)
[2020-05-15] MEDS ORDERED: CARVEDILOL 3.125 MG TABLET PO SCH (18:00)
== END 2020-05-15 12:38 | disposition home or self-care (01) ==
LOC: ED 19:02 → EDIP 19:22 → INTOOBSV 19:22 → 5SO 21:19 → DCLOUNGE 05-15 12:23
PROVIDERS: ADMIT Internal Medicine; ATTEND Internal Medicine
DX: R07.89 Other chest pain (principal); I10 Essential (primary) hypertension; E86.0 Dehydration; I48.91 Unspecified atrial fibrillation; E11.65 Type 2 diabetes mellitus with hyperglycemia; K21.9 Gastro-esophageal reflux disease without esophagitis; E87.1 Hypo-osmolality and hyponatremia; E83.52 Hypercalcemia; D72.829 Elevated white blood cell count, unspecified; D69.6 Thrombocytopenia, unspecified; I95.1 Orthostatic hypotension; J98.11 Atelectasis; E87.8 Other disorders of electrolyte and fluid balance, not elsewhere classified; Z87.891 Personal history of nicotine dependence; Z87.19 Personal history of other diseases of the digestive system; Z79.4 Long term (current) use of insulin; Z79.899 Other long term (current) drug therapy
CPT/HCPCS: 36415; 71045; 71275; 80048; 80053; 82962; 83690; 84443; 84484; 85025; 93005; 93458; 96361; 96374; 96375; 96376; 99156; 99285; C1769; C1894; G0378; J1644; J1815; J1885; J2250; J2270; J3010; J3490; J7030; Q9967; J0583; J1650

== ENCOUNTER → 2020-06-13 | Outpatient (CLI) | payer MEDICAID ==
[~2020-06-13] MED LIST changes: +OMNIPAQUE 350 MG/ML, 100ML BOTTLE ONE
== END | disposition home or self-care (01) ==
LOC: CFH 10:38
PROVIDERS: ATTEND Surgery
DX: K86.3 Pseudocyst of pancreas (principal); R91.1 Solitary pulmonary nodule
CPT/HCPCS: 74177; Q9967

== ENCOUNTER 2020-08-23 22:39 | Inpatient (IN) | payer MEDICAID ==
[~2020-08-23] VITALS: Ht 160 cm; Wt 78.2 kg
[~2020-08-23 22:39] MED LIST changes: +METF500T17 PO; -OMNIPAQUE 350 MG/ML, 100ML BOTTLE ONE; -PANT40TA5 PO; +PANT40TA6 PO
[2020-08-24] MEDS ORDERED: ONDANSETRON 2MG/ML, 2ML IVPush ONE
[2020-08-24] MEDS ORDERED: MORPHINE SULFATE 4 MG/ML, 1ML IVPush PRN
[2020-08-24 00:18] LABS: BASOPHILS % (AUTO) 1 % (0-1); EOSINOPHILS % (AUTO) 1 % (1-7); LYMPHOCYTES % (AUTO) 28 % (22-44); MEAN CORPUSCULAR HEMOGLOBIN 27.7 pg (27.0-34.8); MEAN CORPUSCULAR HGB CONC 33.1 g/dL (32.4-35.8); MEAN PLATELET VOLUME 7.9 fL (7.4-10.4); MONOCYTES % (AUTO) 10 % (2-9); NEUTROPHILS % (AUTO) 61 % (42-75); PLATELET COUNT 298 x10^3/uL (130-400); RED BLOOD COUNT 4.61 x10^6/uL (3.82-5.3); RED CELL DISTRIBUTION WIDTH 15.5 % (9.6-15.2)
[2020-08-24 00:21] LABS: ALBUMIN 3.4 g/dL (3.4-5.0); ANION GAP 7 mmol/L (5-15); CALCIUM 8.9 mg/dL (8.5-10.1); CHLORIDE 104 mmol/L (98-107); CREATININE 0.92 mg/dL (0.55-1.02)
[2020-08-24] MEDS ORDERED: MORPHINE SULFATE 4 MG/ML, 1ML ONE (00:28)
[2020-08-24] MEDS ORDERED: ONDANSETRON 2MG/ML, 2ML ONE (00:28)
[2020-08-24 00:39] LABS: MD NO
[2020-08-24] MEDS ORDERED: CEFTRIAXONE PMX 1GM/50ML 50 ML ONE (01:59)
[2020-08-24] MEDS ORDERED: VANCOMYCIN PER PHARMACY MC PRN ×2 (02:00→08:30)
[2020-08-24] MEDS ORDERED: CEFTRIAXONE PMX 1GM/50ML 50 ML IV ONE (02:00)
[2020-08-24] MEDS ORDERED: VANCOMYCIN 1,900 MG in SODIUM CHLORIDE 0.9% 250 ML IV ONE (02:30)
--- NOTE | 2020-08-24 02:54 | NUR ---
REPORT GIVEN TO BOYD. PREPARING TO TRANSPORT.
[2020-08-24] MEDS ORDERED: LACTATED RINGERS 1,000 ML IV ONE (03:00)
[2020-08-24] MEDS ORDERED: LABETALOL 5MG/ML, 20ML IVPush PRN (03:00)
[2020-08-24] MEDS ORDERED: ONDANSETRON 2MG/ML, 2ML IVPush PRN (03:00)
[2020-08-24] MEDS ORDERED: ACETAMINOPHEN 325 MG TABLET PO PRN (03:00)
[2020-08-24] MEDS ORDERED: LACTATED RINGERS 1,000 ML IV SCH (03:00)
[2020-08-24] MEDS ORDERED: OMEP20CA20 PO (03:12)
[2020-08-24] MEDS ORDERED: INSU100V34 SQ (03:16)
[2020-08-24] MEDS ORDERED: INSU100I34 SQ (03:16)
[2020-08-24 03:36] VITALS: BP 104/62
[2020-08-24] MEDS: morphine SULFATE 10 MG/ML, 1ML IVPush PRN ×5 (04:27→21:19)
[2020-08-24] MEDS: SODIUM CHLORIDE 0.9% 1,000 ML IV SCH ×2 (04:42→16:07)
[2020-08-24] MEDS: PIPERACILLIN/TAZO/PMX 3.375GM 50 ML IV SCH ×3 (04:45→18:19)
[2020-08-24] MEDS ORDERED: DIPHENHYDRAMINE 25 MG CAPSULE PO ONE (05:00)
[2020-08-24] MEDS ORDERED: OMNIPAQUE 350 MG/ML, 100ML BOTTLE ONE (05:08)
[2020-08-24 06:53] VITALS: BP 106/69
[2020-08-24] MEDS ORDERED: INSULIN LISPRO 100 UNITS/ML, PEN SQ-INSULIN SCH (07:00)
[2020-08-24] MEDS ORDERED: PHARMACOKINETIC MONITORING MC PRN (08:30)
[2020-08-24] MEDS ORDERED: PHARMACOKINETIC CONSULTATION MC ONE (08:30)
[2020-08-24] MEDS: SENNA/DOCUSATE TABLET PO SCH (09:00)
[2020-08-24] MEDS ORDERED: FENTANYL PF 100 MCG/2ML ONE (10:10)
[2020-08-24] MEDS ORDERED: MIDAZOLAM 1 MG/ML, 5ML ONE (10:11)
[2020-08-24] MEDS ORDERED: FLUMAZENIL 0.1 MG/1 ML, 5ML ONE (10:11)
[2020-08-24] MEDS ORDERED: LIDOCAINE 1%, 20ML ONE (10:11)
[2020-08-24] MEDS ORDERED: NALOXONE 1 MG/ML, 2ML ONE (10:11)
[2020-08-24 11:23] VITALS: BP 88/56
[2020-08-24 11:26] VITALS: BP 99/54
[2020-08-24] MEDS: INSULIN LISPRO 100 UNITS/ML, PEN SQ-INSULIN SCH ×3 (12:50→21:18)
[2020-08-24 13:56] VITALS: BP 99/62
[2020-08-24 20:16] VITALS: BP 110/56
[2020-08-24] MEDS ORDERED: INSULIN GLARGINE 100 UNITS/ML, PEN SQ-INSULIN SCH (21:00)
[2020-08-25] MEDS: morphine SULFATE 10 MG/ML, 1ML IVPush PRN ×6 (00:32→20:47)
[2020-08-25] MEDS: PIPERACILLIN/TAZO/PMX 3.375GM 50 ML IV SCH ×4 (00:56→18:23)
[2020-08-25] MEDS: SODIUM CHLORIDE 0.9% 1,000 ML IV SCH (00:57)
[2020-08-25] MEDS: VANCOMYCIN 1,500 MG in SODIUM CHLORIDE 0.9% 250 ML IV SCH (02:22)
[2020-08-25 02:48] VITALS: BP 99/54
[2020-08-25 05:38] LABS: BASOPHILS % (AUTO) 1 % (0-1); EOSINOPHILS % (AUTO) 1 % (1-7); LYMPHOCYTES % (AUTO) 27 % (22-44); MEAN CORPUSCULAR HEMOGLOBIN 27.9 pg (27.0-34.8); MEAN CORPUSCULAR HGB CONC 33.1 g/dL (32.4-35.8); MEAN PLATELET VOLUME 7.8 fL (7.4-10.4); MONOCYTES % (AUTO) 9 % (2-9); NEUTROPHILS % (AUTO) 62 % (42-75); PLATELET COUNT 273 x10^3/uL (130-400); RED BLOOD COUNT 4.14 x10^6/uL (3.82-5.3); RED CELL DISTRIBUTION WIDTH 14.9 % (9.6-15.2)
[2020-08-25 05:39] LABS: MD NO
[2020-08-25 05:52] LABS: ANION GAP 6 mmol/L (5-15); CALCIUM 8.7 mg/dL (8.5-10.1); CHLORIDE 104 mmol/L (98-107)
[2020-08-25 05:53] LABS: CREATININE 0.64 mg/dL (0.55-1.02)
[2020-08-25 06:48] VITALS: BP 95/61
[2020-08-25] MEDS: SENNA/DOCUSATE TABLET PO SCH (07:48)
[2020-08-25] MEDS: INSULIN LISPRO 100 UNITS/ML, PEN SQ-INSULIN SCH ×4 (07:49→22:29)
[2020-08-25 12:29] VITALS: BP 113/68
[2020-08-25] MEDS: HEPARIN 5,000 UNITS/ML, 1ML SQ SCH ×2 (14:30→22:30)
[2020-08-25] MEDS: OMEPRAZOLE 20 MG CAPSULE.DR PO SCH (14:56)
[2020-08-25 19:00] VITALS: BP 119/58
[2020-08-25] MEDS ORDERED: INSULIN GLARGINE 100 UNITS/ML, PEN SQ-INSULIN SCH (21:00)
[2020-08-26] MEDS: PIPERACILLIN/TAZO/PMX 3.375GM 50 ML IV SCH ×4 (01:10→18:06)
[2020-08-26] MEDS: morphine SULFATE 10 MG/ML, 1ML IVPush PRN ×3 (01:22→08:33)
[2020-08-26 02:13] VITALS: BP 106/70
[2020-08-26] MEDS: VANCOMYCIN 1,500 MG in SODIUM CHLORIDE 0.9% 250 ML IV SCH (02:19)
[2020-08-26] MEDS: HEPARIN 5,000 UNITS/ML, 1ML SQ SCH ×3 (04:46→21:06)
[2020-08-26] MEDS: OMEPRAZOLE 20 MG CAPSULE.DR PO SCH ×2 (04:52→04:53)
[2020-08-26] MEDS: INSULIN LISPRO 100 UNITS/ML, PEN SQ-INSULIN SCH ×4 (06:34→21:31)
[2020-08-26 07:10] VITALS: BP 95/59
[2020-08-26] MEDS: SENNA/DOCUSATE TABLET PO SCH (08:34)
[2020-08-26 12:48] VITALS: BP 113/76
[2020-08-26 20:04] VITALS: BP 121/53
[2020-08-26] MEDS ORDERED: INSULIN GLARGINE 100 UNITS/ML, PEN SQ-INSULIN SCH (21:00)
[2020-08-27] MEDS: morphine SULFATE 10 MG/ML, 1ML IVPush PRN ×4 (00:25→18:21)
[2020-08-27] MEDS: PIPERACILLIN/TAZO/PMX 3.375GM 50 ML IV SCH ×3 (00:43→12:30)
[2020-08-27] MEDS: VANCOMYCIN 1,500 MG in SODIUM CHLORIDE 0.9% 250 ML IV SCH (02:10)
[2020-08-27 02:15] VITALS: BP 101/64
[2020-08-27] MEDS: OMEPRAZOLE 20 MG CAPSULE.DR PO SCH (06:22)
[2020-08-27] MEDS: INSULIN LISPRO 100 UNITS/ML, PEN SQ-INSULIN SCH ×4 (06:28→21:00)
[2020-08-27] MEDS: HEPARIN 5,000 UNITS/ML, 1ML SQ SCH ×3 (06:28→22:30)
[2020-08-27 07:12] VITALS: BP 114/75
[2020-08-27 08:45] LABS: CREATININE 0.73 mg/dL (0.55-1.02)
[2020-08-27] MEDS: SENNA/DOCUSATE TABLET PO SCH (09:17)
[2020-08-27 12:44] VITALS: BP 129/78
[2020-08-27] MEDS ORDERED: VANCOMYCIN 1,500 MG in SODIUM CHLORIDE 0.9% 250 ML IV SCH (14:00)
[2020-08-27 20:20] VITALS: BP 110/70
[2020-08-27] MEDS: INSULIN GLARGINE 100 UNITS/ML, PEN SQ-INSULIN SCH (21:00)
[2020-08-28 00:50] VITALS: BP 112/77
[2020-08-28] MEDS: HEPARIN 5,000 UNITS/ML, 1ML SQ SCH ×3 (05:56→21:28)
[2020-08-28] MEDS: OMEPRAZOLE 20 MG CAPSULE.DR PO SCH (06:11)
[2020-08-28 06:30] VITALS: BP 142/84
[2020-08-28] MEDS: INSULIN GLARGINE 100 UNITS/ML, PEN SQ-INSULIN SCH ×3 (07:52→21:37)
[2020-08-28] MEDS: INSULIN LISPRO 100 UNITS/ML, PEN SQ-INSULIN SCH ×4 (07:52→21:36)
[2020-08-28] MEDS: SENNA/DOCUSATE TABLET PO SCH (09:00)
[2020-08-28] MEDS: DULOXETINE 30 MG CAPSULE.DR PO SCH ×2 (11:44→21:36)
[2020-08-28 13:10] VITALS: BP 152/78
[2020-08-28 19:31] VITALS: BP 129/77
[2020-08-28] MEDS: MICAFUNGIN 100 MG in SODIUM CHLORIDE 0.9% 100 ML IV SCH (23:22)
[2020-08-29 01:35] VITALS: BP 144/81
[2020-08-29] MEDS: OMEPRAZOLE 20 MG CAPSULE.DR PO SCH (06:25)
[2020-08-29] MEDS: HEPARIN 5,000 UNITS/ML, 1ML SQ SCH ×2 (06:29→13:45)
[2020-08-29 06:55] VITALS: BP 149/91
[2020-08-29] MEDS: INSULIN GLARGINE 100 UNITS/ML, PEN SQ-INSULIN SCH (08:11)
[2020-08-29] MEDS: DULOXETINE 30 MG CAPSULE.DR PO SCH (08:12)
[2020-08-29] MEDS: INSULIN LISPRO 100 UNITS/ML, PEN SQ-INSULIN SCH ×2 (08:12→11:36)
[2020-08-29] MEDS: SENNA/DOCUSATE TABLET PO SCH (08:12)
[2020-08-29] MEDS ORDERED: INSULIN GLARGINE 100 UNITS/ML, PEN SQ-INSULIN SCH (09:00)
[2020-08-29] MEDS ORDERED: INSU100I13 SQ-INSULIN (10:31)
[2020-08-29] MEDS ORDERED: DULO30CA2 PO (10:31)
[2020-08-29] MEDS: MICAFUNGIN 100 MG in SODIUM CHLORIDE 0.9% 100 ML IV SCH (11:59)
[2020-08-29 12:43] VITALS: BP 157/95
== END 2020-08-29 14:00 | disposition home or self-care (01) | DRG 372 ==
LOC: ED 23:09 → EDIP 08-24 01:39 → 4NE 08-24 03:33 → DCLOUNGE 08-29 13:49
PROVIDERS: ADMIT Family Medicine; ATTEND Internal Medicine
PROC: 0J9C3ZZ Drainage of Pelvic Region Subcutaneous Tissue and Fascia, Percutaneous Approach (ICD-10-PCS; 2020-08-24)
PROC: 02HV33Z Insertion of Infusion Device into Superior Vena Cava, Percutaneous Approach (ICD-10-PCS; principal; 2020-08-27)
PROC: B548ZZA Ultrasonography of Superior Vena Cava, Guidance (ICD-10-PCS; 2020-08-27)
DX: K68.19 Other retroperitoneal abscess (principal); E87.1 Hypo-osmolality and hyponatremia; E87.2 Acidosis; I47.1 Supraventricular tachycardia; K86.0 Alcohol-induced chronic pancreatitis; K86.3 Pseudocyst of pancreas; L02.31 Cutaneous abscess of buttock; E11.65 Type 2 diabetes mellitus with hyperglycemia; E66.9 Obesity, unspecified; F10.20 Alcohol dependence, uncomplicated; G89.29 Other chronic pain; I10 Essential (primary) hypertension; I48.0 Paroxysmal atrial fibrillation; I86.4 Gastric varices; J44.9 Chronic obstructive pulmonary disease, unspecified; K21.9 Gastro-esophageal reflux disease without esophagitis; N73.9 Female pelvic inflammatory disease, unspecified; Z79.4 Long term (current) use of insulin; Z80.8 Family history of malignant neoplasm of other organs or systems; Z87.891 Personal history of nicotine dependence; Z80.9 Family history of malignant neoplasm, unspecified; Z79.899 Other long term (current) drug therapy; Z79.891 Long term (current) use of opiate analgesic; Z68.30 Body mass index [BMI] 30.0-30.9, adult; N73.8 Other specified female pelvic inflammatory diseases
CPT/HCPCS: 36415; 75989; 87106; 96374; 96375; 99285; J3490; 36573; 74177; 80048; 80202; 82040; 82565; 82962; 83036; 83605; 85025; 87040; 87070; 87075; 87186; 87205; 99156; 99157; G0378; J0696; J1644; J2248; J2250; J2405; J2543; J3010; J3370; Q9967; C1729; C1751; C1769; J1815; J2270; J2310; J7030; J7050; Q0163

== ENCOUNTER → 2020-09-02 | Outpatient (CLI) | payer MEDICAID ==
[~2020-09-02] MED LIST changes: +DULO30CA2 PO; +OMEP20CA20 PO; +OMNIPAQUE 350 MG/ML, 100ML BOTTLE ONE
== END | disposition home or self-care (01) ==
LOC: CFH 12:54
PROVIDERS: ATTEND Surgery
DX: K68.19 Other retroperitoneal abscess (principal)
CPT/HCPCS: 74177; Q9967